=== PATIENT | female | born 2005 | race Caucasian/White ===

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

== ENCOUNTER 2024-05-17 16:32 | Emergency (ER) | payer OTHER, SELFPAY ==
--- NOTE | ~2024-05-17 | US_ITS ---
CLINICAL HISTORY: +preg test. bleeding spotting US OB 1st trimester transabdominal Comparison: None Findings: Neither intrauterine nor ectopic gestation is currently identified. There are no abnormal pelvic masses or significant fluid collections. IMPRESSION: No evidence of intrauterine or ectopic gestation. Follow-up imaging should be based on serial beta hCG levels. This document has been electronically signed by: Pepe King MD on 05/17/2024 19:36:39
[2024-05-17 16:52] VITALS: BP 151/79; PULSE 92; RESP 18; TEMP 37; O2SAT 100; BMI 24.1
--- NOTE | 2024-05-17 16:56 | ED.PREGNANCY ---
HPI - General Chief complaint: Vaginal Bleeding Stated complaint: ?Potential miscarriage Time Seen by Provider: 05/17/24 19:37 Source: patient Mode of arrival: ambulatory Limitations: no limitations History of Present Illness ED Provider: Maria Mo NP HPI Narrative: Patient is a 18-year-old female presents emergency department for evaluation. She reports her last menstrual period was 04/07/2024, she follows with [facility] OB. She was experiencing lower abdominal cramping and back pain with onset yesterday which brought her to urgent care. Reports that she had a serum HCG that resulted at 24. Yesterday she was having light vaginal spotting which then progressed to heavier bleeding. She reports that she is still currently bleeding describes it as menstrual type bleeding. She has cramping to the mid lower abdomen/suprapubic region as well as diffusely across the lower back. She expresses concern that she may have a sexually transmitted infection, she has had a new partner within the past couple of months. She states that even prior to this bleeding she was having foul smelling vaginal discharge, vaginal spotting/bleeding after intercourse and painful intercourse. She admits to having a history of chlamydia and gonorrhea infection in the past which presented similarly. She is also endorsing pain upon palpation of the external genitalia. She denies associated fevers, chills, nausea, vomiting. Related Data Home Medications ?Medication ?Instructions ?Recorded ?Confirmed vitamin 1 tab PO DAILY 11/05/21 11/05/21 no.76-iron,carbonyl 29 mg iron-folic acid 1 mg tablet (Thrivite Rx) Previous Rx's ?Medication ?Instructions ?Recorded pyridoxine (vitamin B6) 25 mg 25 mg PO TID PRN nausea #30 tabs 11/05/21 tablet cefuroxime axetil 250 mg tablet 250 mg PO BID #10 tabs 05/17/24 doxycycline hyclate 100 mg capsule 100 mg PO BID 14 days #27 caps 05/17/24 metronidazole 500 mg tablet 500 mg PO BID 14 days #27 tabs 05/17/24 ondansetron 4 mg disintegrating 4 mg PO Q8H PRN nausea and 05/17/24 tablet vomiting #10 tabs Allergies Allergy/AdvReac Type Severity Reaction Status Date / Time broccoli [BROCCOLI] Allergy Severe ANAPHYLAXIS Verified 05/17/24 16:56 penicillin V Allergy Mild Hives Verified 05/17/24 16:56 Penicillins [PENICILLINS] Allergy Mild RASH Verified 05/17/24 16:56 amoxicillin Allergy Unknown Unknown Verified 05/17/24 16:56 Review of Systems Review of Systems: Yes all other systems are reviewed and are negative [facility] Past Medical History Attestation statement: The following information was validated with the patient. Source: old records reviewed Medical History PTSD (post-traumatic stress disorder) Prolonged QT interval Depression ADHD Surgical History No pertinent past surgical history Social History Social History Alcohol intake: never Patient Tobacco Use Status: Current everyday Tobacco user Smoked in Last 30 Days: Yes Use of substances other than those prescribed or required for medical reasons: No Substance Use Type: Marijuana Advance Directives: No Advance Directives Information Provided: No Do you have a plan to hurt others: No Plan Physical Exam Vital Signs: Vital Signs: Last Vital Signs Temp 98 F 05/17/24 20:54 Pulse 80 05/17/24 20:54 Resp 18 05/17/24 20:54 BP 114/70 05/17/24 20:54 Pulse Ox 99 05/17/24 20:54 O2 Del Method Room Air 05/17/24 20:54 BMI result Body Mass Index 24.1 Appearance: Alert.?Oriented to person, place and time. No acute distress.?Normal affect. CVS: Heart sounds normal. Normal heart rate and rhythm.? Pulses normal.?? Respiratory: No respiratory distress.? Lung sounds clear to auscultation bilaterally?? Abdomen: Soft and non-tender. Normoactive bowel sounds. No pulsatile mass.? Genitourinary:? Supervised by ED fabrication technician. Normal external appearance of urethra.? No lesions/lacerations or discharge or tenderness noted. No Bartholin cyst noted.? Speculum exam: normal appearance/palpation of vagina normal. No abnormal vaginal discharge, swelling, erythema, laceratons. Positive active bleeding from the cervical os which otherwise appears normal. ?No foreign bodies noted.? Pain upon manipulation of the cervix with speculum as well as during swabs obtained.? No cervical lesion/mass.?? Positive cervical motion tenderness noted.? Negative chandelier sign.? Normal bimanual exam. Bladder normal to palpation. Normal adnexa. Normal rectovaginal exam.? Skin: Skin warm and dry.? Normal skin color.? Neuro: Moves all extremities spontaneously. Sensation intact bilaterally. Ambulates with normal steady gait. Course Course Course Narrative: This is a Rapid Medical Examination (RME) performed by Rylie Arreguin PA-C in triage. Full HPI, ROS, assessment and treatment plan per primary provider in the Main ED. 18 yo currently in the early state of ?LMP 04/07 presents to the ER for evaluation of vaginal bleeding, cramping, back pains that started yesterday. concern for STI with her new partner, has foul smelling vaginal discharge. bleeding started as spotting and now the whole toilet bowl is bloody. follows w/ OB at [place] who told her to come to the ER. Plan: labs, beta quant, sti testing Medications Administered Discontinued Medications Generic Name Dose Route Start Last Admin Trade Name Scooter PRN Reason Stop Dose Admin Ceftriaxone Sodium 500 mg/ 0 mg 05/17/24 20:27 05/17/24 20:48 Lidocaine HCl 1 ml IM 05/17/24 20:28 1 kit ONCE ONE Administration Doxycycline Monohydrate 100 mg 05/17/24 20:27 05/17/24 20:49 Doxycycline Monohydrate 100 Mg Capsule PO 05/17/24 20:28 100 mg ONCE ONE Administration Metronidazole 500 mg 05/17/24 20:27 05/17/24 20:49 Metronidazole 500 Mg Tablet PO 05/17/24 20:28 500 mg ONCE ONE Administration Ondansetron HCl 4 mg 05/17/24 20:27 05/17/24 20:48 Ondansetron Odt 4 Mg Tab.Rapdis TRANSLINGU 05/17/24 20:28 4 mg ONCE ONE Administration Medical Decision Making Medical Decision Making [facility] Narrative: Patient is a 18-year-old female presents emergency department for evaluation of lower abdominal and back pain in the setting of vaginal bleeding with concern for possible miscarriage as per HPI. On review she does have a downtrending hCG by her account serum level was 24 yesterday has resulted at 11 today. CBC is without leukocytosis anemia or thrombocytopenia. No significant electrolyte derangement. No OSIEL. LFTs are unremarkable. Urinalysis consistent with urinary tract infection, her presenting history and physical examination is concerning for PID. Ultrasound is without evidence of intrauterine or evidence of ectopic . At this time is most consistent with miscarriage. Discussed with my attending Dr. Lomeli who agree this is consistent with miscarriage, therefore will treat PID with ceftriaxone 500 mg IM, doxycycline and metronidazole twice daily for 14 days, cefuroxime for UTI. Bacterial vaginosis panel, Trichomonas, chlamydia and gonorrhea testing have been sent, results pending. Advised close outpatient follow-up with veterinary toxicologist and discussed worrisome signs and symptoms that would warrant re-evaluation in the emergency department. Differential Diagnosis Differential Diagnoses: The differential diagnosis associated with the presentation includes (See narrative above) Admission/Observation Consideration of admission/observation: Escalation of care including admission/observation considered Lab Data MDM Lab Attestation statement: I reviewed the patient's lab results. (See narrative above) 05/17/24 17:20 05/17/24 17:20 Labs: Lab Results 05/17/24 05/17/24 05/17/24 Range/Units 17:19 17:20 17:22 WBC 5.4 (4.8-10.8) X10*3/uL RBC 4.64 (4.20-5.50) X10*6/uL Hgb 14.5 (12.0-16.0) g/dl Hct 41.8 (37.0-47.0) % MCV 90.1 (80.0-98.0) fL MCH 31.3 (27.0-33.0) pg MCHC 34.7 (31.0-35.0) g/dl RDW 12.7 (11.0-16.0) % Plt Count 213 (160-400) X10*3/uL MPV 10.1 (9.4-12.3) fL Immature Gran % (Auto) 0.2 (0.0-0.4) % Neut % (Auto) 57.7 (45-73) % Lymph % (Auto) 32.5 (20-40) % [place] % (Auto) 8.1 (2-11) % Eos % (Auto) 0.9 (0-4) % Baso % (Auto) 0.6 (0-2) % Lymph # (Auto) 1.8 (1.2-4.9) X10*3/uL [place] # (Auto) 0.4 (0.1-1.2) X10*3/uL Eos # (Auto) 0.1 (0.0-0.4) X10*3/uL Baso # (Auto) 0.0 (0.0-0.2) X10*3/uL Abs Immat Gran (auto) 0.01 (0.00-0.03) X10*3/uL Absolute Neuts (auto) 3.1 (2.0-8.3) x10*3/uL Absolute Nucleated RBC 0.000 (0.0-0.012) X10*3/uL Nucleated RBC % (auto) 0.0 (0.0-0.2) /100WBC Sodium 140 (135-145) mmol/L Potassium 4.5 (3.3-5.1) mmol/L Chloride 110 H (96-108) mmol/L Carbon Dioxide 26 (22-29) mmol/L Anion Gap 9 L (12-20) BUN 6 L (9-16) mg/dL Creatinine 0.82 (0.5-1.4) mg/dL Estim Creat Clear Calc 89.5 Estimated GFR > 60 Random Glucose 119 H (60-115) mg/dL Calcium 8.9 (8.4-10.2) mg/dL Magnesium 1.8 (1.6-2.6) mg/dL Total Bilirubin 0.5 (0.0-1.0) mg/dL Direct Bilirubin 0.2 (0.0-0.5) mg/dL AST 21 (5-31) U/L ALT 13 (0-31) U/L Alkaline Phosphatase 75 (39-117) U/L Total Protein 7.0 (6.5-8.0) g/dL Albumin 4.3 (3.5-5.0) g/dL Beta HCG, Quant 11 mIU/mL Urine Color RED Urine Appearance Turbid Urine pH 6.5 (5.0-9.0) Ur Specific [place] 1.025 (1.005-1.025) Urine Protein 300 (3+) H (Neg-Trace) mg/dL Urine Glucose (UA) 100 H (Negative) mg/dL Urine Ketones 15 (Negative) mg/dL Urine Blood Large (3+) H (Negative) Urine Nitrite Positive H (Negative) Ur Leukocyte Esterase Moderate (2+) H (Negative) Urine RBC >20 H (0-2) /HPF Urine WBC >50 H (0-5) /HPF Ur Squamous Epith Cells >20 (0-2) /HPF Urine Bacteria 4+ (None Seen) Hyaline Casts 0-2 (0-2) /LPF Blood Type A Positive Radiology Impression Discussion of test interpretation with radiology: I have reviewed the radiologist's reading. Radiologist Impression: IMPRESSION: No evidence of intrauterine or ectopic gestation. Follow-up imaging should be based on serial beta hCG levels. External Record Review External record reviewed: Outpatient record Prescription Management I considered prescription management with: Antibiotic (See narrative above) Discharge Plan Discharge Clinical Impression: Spontaneous miscarriage, Acute pelvic inflammatory disease (PID), Urinary tract infection Patient Disposition: Home, Self-Care Instructions: Miscarriage (ED), Urinary Tract Infection in Women (ED) Additional Instructions: Your testing today shows that your blood hCG level for has downtrended to 11. The ultrasound does not show any evidence of active . This coupled with your bleeding is consistent with a miscarriage as discussed. Please follow-up with your OBGYN, they may consider repeating your hCG level at their discretion. As discussed, your examination today along with your presenting symptoms is concerning for pelvic inflammatory disease. For this you have been treated with ceftriaxone 500 mg IM in the emergency department, you have been discharge with prescriptions for doxycycline and metronidazole to take twice daily for 14 days. You received the 1st dose in the emergency department, you may begin taking these tomorrow. Additionally, your urine testing today is concerning for a urinary tract infection, cefuroxime has been sent to your pharmacy to take twice daily for 5 days, please begin this tomorrow. The combination of these medications may cause stomach upset. I have provided a prescription for Zofran to take every 8 hours as needed for nausea/vomiting. Please be sure to include a probiotic/yogurt daily to help keep your gut gina maintained. On doxycycline, do not take pills immediately before going to bed and swallow pills with plenty of water. Avoid direct sunlight, iron, antacids, and Pepto Bismol. Call your provider if you develop new ringing in your ears, new problems hearing, dizziness, difficulty swallowing, rash, abdominal discomfort, nausea, or diarrhea.? If there are any positive results from your testing today you will receive a call from the hospital. It is important that you refrain from any sexual intercourse while currently being treated with antibiotics as well as for 7 days afterwards. Have a conversation with your partner about having testing as well, especially if you received a call that there was any positive result. Prescriptions: New doxycycline hyclate 100 mg capsule 100 mg PO BID 14 Days Qty: 27 0RF metronidazole 500 mg tablet 500 mg PO BID 14 Days Qty: 27 0RF cefuroxime axetil 250 mg tablet 250 mg PO BID Qty: 10 0RF ondansetron 4 mg tablet,disintegrating 4 mg PO Q8H PRN (Reason: nausea and vomiting) Qty: 10 0RF No Action Thrivite Rx 29 mg iron- 1 mg tablet 1 tab PO DAILY pyridoxine (vitamin B6) 25 mg tablet 25 mg PO TID PRN (Reason: nausea) Qty: 30 0RF Referrals: Physician,None [Primary Care Provider] - Interventions: ED Discharge Assessment Last Done: 05/17/24 20:54 Discharge Date/Time: 05/17/24 20:54 Print Language: Samoan
[2024-05-17 17:28] LABS: MANUAL DIFF FLAG NO
[2024-05-17 17:31] LABS: Basophils Percent Auto 0.6 % (0-2); Eosinophils Absolute Auto 0.1 X10*3/uL (0.0-0.4); Eosinophils Percent Auto 0.9 % (0-4); Hematocrit 41.8 % (37.0-47.0); Hemoglobin 14.5 g/dl (12.0-16.0); Imm Gran Abs Auto 0.01 X10*3/uL (0.00-0.03); Imm Gran Pct Auto 0.2 % (0.0-0.4); Lymphocytes Absolute Auto 1.8 X10*3/uL (1.2-4.9); Lymphocytes Percent Auto 32.5 % (20-40); Mean Corpuscular HGB Conc 34.7 g/dl (31.0-35.0); Mean Corpuscular Hemoglobin 31.3 pg (27.0-33.0); Mean Corpuscular Volume 90.1 fL (80.0-98.0); Mean Platelet Volume 10.1 fL (9.4-12.3); Monocytes Absolute Auto 0.4 X10*3/uL (0.1-1.2); Monocytes Percent Auto 8.1 % (2-11); Neutrophils Absolute Auto 3.1 x10*3/uL (2.0-8.3); Neutrophils Percent Auto 57.7 % (45-73); Platelet Count 213 X10*3/uL (160-400); Red Blood Count 4.64 X10*6/uL (4.20-5.50); Red Cell Distribution Width 12.7 % (11.0-16.0); White Blood Count 5.4 X10*3/uL (4.8-10.8)
[2024-05-17 17:32] LABS: Appearance Urine Turbid; Color Urine RED; Glucose Urine UA 100 mg/dL (Negative); Leukocyte Esterase Urine Moderate (2+) (Negative); PH 6.5 (5.0-9.0); Specific Gravity - Urine 1.025 (1.005-1.025); UMIC TRIGGER UACC YES; Urine Blood Large (3+) (Negative); Urine Ketones 15 mg/dL (Negative); Urine Protein 300 (3+) mg/dL (Neg-Trace)
[2024-05-17 17:52] LABS: Alanine Aminotransferase 13 U/L (0-31); Albumin Level 4.3 g/dL (3.5-5.0); Alkaline Phosphatase 75 U/L (39-117); Anion Gap 9 (12-20); Aspartate Amino Transferase 21 U/L (5-31); Bilirubin Direct 0.2 mg/dL (0.0-0.5); Bilirubin Total 0.5 mg/dL (0.0-1.0); Blood Urea Nitrogen 6 mg/dL (9-16); Calcium 8.9 mg/dL (8.4-10.2); Carbon Dioxide 26 mmol/L (22-29); Chloride 110 mmol/L (96-108); Creatinine Clr Calc Pharmacy 89.5; Estimated Glomerular Filt Rate > 60; Glucose Random 119 mg/dL (60-115); Magnesium 1.8 mg/dL (1.6-2.6); Potassium 4.5 mmol/L (3.3-5.1); Sodium 140 mmol/L (135-145)
[2024-05-17 17:53] LABS: HCG Quantitative 11 mIU/mL
[2024-05-17 17:58] LABS: Nitrite Urine Positive (Negative)
[2024-05-17 18:00] VITALS: BP 114/70; PULSE 80; RESP 18; O2SAT 99
[2024-05-17 18:01] LABS: Bacteria Urine 4+ (None Seen); Hyaline Casts Urine 0-2 /LPF (0-2); RBC Urine >20 /HPF (0-2); Squamous Epithelial Cell Urine >20 /HPF (0-2); UACC Culture Trigger YES; WBC Urine >50 /HPF (0-5)
[2024-05-17] MEDS: Ondansetron ODT 4 MG TAB.RAPDIS TRANSLINGU (20:48)
[2024-05-17] MEDS: cefTRIAXone sodium 500 MG, Lidocaine HCl 1 % MPF 1 ML IM (20:48)
[2024-05-17] MEDS: metroNIDAZOLE 500 MG TABLET PO (20:49)
[2024-05-17] MEDS: Doxycycline Monohydrate 100 MG CAPSULE PO (20:49)
[2024-05-17 20:54] VITALS: BP 114/70; PULSE 80; RESP 18; TEMP 36.6; O2SAT 99
[2024-05-18 03:25] LABS: CT PCR NOT DETECTED (Not Detect.); NG PCR NOT DETECTED (Not Detect.)
[2024-05-18 13:11] LABS: Bacterial Vaginosis PCR POSITIVE (Negative); Candida Group PCR NOT DETECTED (Not Detect); Candida glab krusei PCR NOT DETECTED (Not Detect); Trichomonas vaginalis PCR DETECTED (Not Detect)
== END 2024-05-17 20:54 | disposition home or self-care (01) ==
PROVIDERS: Physician Assistant; Emergency Provider Emergency Medicine
DX: O03.9 Complete or unspecified spontaneous abortion without complication (principal); O23.599 Infection of other part of genital tract in pregnancy, unspecified trimester; O23.40 Unspecified infection of urinary tract in pregnancy, unspecified trimester; N39.0 Urinary tract infection, site not specified; O98.319 Other infections with a predominantly sexual mode of transmission complicating pregnancy, unspecified trimester; A59.01 Trichomonal vulvovaginitis; Z3A.00 Weeks of gestation of pregnancy not specified
CPT/HCPCS: 0352U; 36415; 76801; 80048; 80076; 81001; 83735; 84702; 85025; 86900; 86901; 87086; 87491; 87591; 96372; 99284; J0696; J2003

== ENCOUNTER → 2024-05-17 18:52 | Outpatient (BNV) | payer MEDICAID, SELFPAY | DX: N93.9 Abnormal uterine and vaginal bleeding, unspecified (principal) | CPT/HCPCS: 71275 ==

== ENCOUNTER 2024-06-16 23:56 | Emergency (ER) | payer OTHER, SELFPAY ==
--- NOTE | ~2024-06-16 | US_ITS ---
CLINICAL HISTORY: abd pain, vaginal bleeding US OB 1st Trimester transabdominal and transvaginal Comparison: US - US OB <= 14 WEEKS FETUS - 05/17/24 18:51 EST Findings: Transabdominal and transvaginal exam performed. Transvaginal exam performed to better evaluate the ovaries and endometrium. No intrauterine gestational sac identified. The endometrium measures 8 mm. The right ovary measures 2.9 x 1.8 x 1.9 cm. The left ovary measures 3.1 x 2.4 x 3.3 cm. No suspicious cystic lesions within the ovaries. IMPRESSION: No evidence of intrauterine or extrauterine at this time. Close follow-up recommended. This document has been electronically signed by: Tawnya Mercedes MD on 06/17/2024 04:32:07
[2024-06-17 00:02] VITALS: BP 110/61; PULSE 101; RESP 16; TEMP 37.2; O2SAT 100; BMI 24.6
[2024-06-17 00:46] LABS: MANUAL DIFF FLAG NO
[2024-06-17 00:52] LABS: Basophils Percent Auto 0.5 % (0-2); Eosinophils Absolute Auto 0.1 X10*3/uL (0.0-0.4); Eosinophils Percent Auto 0.9 % (0-4); Hematocrit 36.4 % (37.0-47.0); Imm Gran Abs Auto 0.01 X10*3/uL (0.00-0.03); Imm Gran Pct Auto 0.2 % (0.0-0.4); Lymphocytes Absolute Auto 2.8 X10*3/uL (1.2-4.9); Lymphocytes Percent Auto 41.6 % (20-40); Mean Corpuscular HGB Conc 35.7 g/dl (31.0-35.0); Mean Corpuscular Hemoglobin 31.2 pg (27.0-33.0); Mean Corpuscular Volume 87.3 fL (80.0-98.0); Mean Platelet Volume 10.5 fL (9.4-12.3); Monocytes Absolute Auto 0.5 X10*3/uL (0.1-1.2); Monocytes Percent Auto 7.8 % (2-11); Neutrophils Absolute Auto 3.3 x10*3/uL (2.0-8.3); Platelet Count 185 X10*3/uL (160-400); Red Blood Count 4.17 X10*6/uL (4.20-5.50); White Blood Count 6.7 X10*3/uL (4.8-10.8)
[2024-06-17 00:53] LABS: Appearance Urine Clear; Color Urine Yellow; Glucose Urine UA Negative (Negative); Leukocyte Esterase Urine Small (1+) (Negative); Nitrite Urine Negative (Negative); PH 7.5 (5.0-9.0); UMIC TRIGGER UACC YES; Urine Blood Negative (Negative); Urine Ketones Negative (Negative); Urine Protein Negative (Neg-Trace)
[2024-06-17 01:04] LABS: Bacteria Urine Trace (None Seen); Hyaline Casts Urine 0-2 /LPF (0-2); RBC Urine 0-2 /HPF (0-2); UACC Culture Trigger YES; WBC Urine 0-5 /HPF (0-5)
[2024-06-17 01:09] LABS: Alanine Aminotransferase 9 U/L (0-31); Albumin Level 4.1 g/dL (3.5-5.0); Anion Gap 12 (12-20); Aspartate Amino Transferase 20 U/L (5-31); Bilirubin Total 0.2 mg/dL (0.0-1.0); Blood Urea Nitrogen 9 mg/dL (9-16); Calcium 8.9 mg/dL (8.4-10.2); Carbon Dioxide 20 mmol/L (22-29); Chloride 112 mmol/L (96-108); Creatinine Clr Calc Pharmacy 114.7; Estimated Glomerular Filt Rate > 60; Glucose Random 89 mg/dL (60-115); HCG Quantitative 542 mIU/mL; Potassium 3.8 mmol/L (3.3-5.1); Sodium 140 mmol/L (135-145); Total Protein 6.8 g/dL (6.5-8.0)
[2024-06-17 01:18] LABS: Alkaline Phosphatase 64 U/L (39-117)
--- NOTE | 2024-06-17 03:16 | ED.FEMALEGU ---
HPI - Female Genitourinary General Chief complaint: Vaginal Bleeding Stated complaint: miscarriage? Time Seen by Provider: 06/17/24 02:17 Source: patient Mode of arrival: ambulatory Limitations: no limitations History of Present Illness ED Provider: Dr. Mariya Humphries HPI Narrative: Patient comes to the emergency room complaining of vaginal bleeding. Patient states that 2 days ago she tested positive for at home. Patient states that today she had some abdominal cramping and passed a large blood clot. Patient denies hematuria or dysuria. Patient states that a month ago she was diagnosed with a miscarriage. Follow-up ultrasound did not show any products of conception in the uterus and hCG eventually returned to normal. Patient is currently a . Related Data Home Medications ?Medication ?Instructions ?Recorded ?Confirmed vitamin 1 tab PO DAILY 11/05/21 11/05/21 no.76-iron,carbonyl 29 mg iron-folic acid 1 mg tablet (Thrivite Rx) Previous Rx's ?Medication ?Instructions ?Recorded pyridoxine (vitamin B6) 25 mg 25 mg PO TID PRN nausea #30 tabs 11/05/21 tablet cefuroxime axetil 250 mg tablet 250 mg PO BID #10 tabs 05/17/24 doxycycline hyclate 100 mg capsule 100 mg PO BID 14 days #27 caps 05/17/24 metronidazole 500 mg tablet 500 mg PO BID 14 days #27 tabs 05/17/24 ondansetron 4 mg disintegrating 4 mg PO Q8H PRN nausea and 05/17/24 tablet vomiting #10 tabs doxylamine 10 mg-pyridoxine (vit 1 tab PO BID #30 tabs 06/17/24 B6) 10 mg tablet,delayed release nitrofurantoin 100 mg PO Q12H 7 days #14 caps 06/17/24 monohydrate/macrocrystals 100 mg capsule (Macrobid) Allergies Allergy/AdvReac Type Severity Reaction Status Date / Time broccoli [BROCCOLI] Allergy Severe ANAPHYLAXIS Verified 06/17/24 00:04 penicillin V Allergy Mild Hives Verified 06/17/24 00:04 Penicillins [PENICILLINS] Allergy Mild RASH Verified 06/17/24 00:04 amoxicillin Allergy Unknown Unknown Verified 06/17/24 00:04 Review of Systems Review of Systems: Constitutional : No Weight loss, No Fever, No Chills, No Night Sweats, No Fatigue, No Malaise ENT/Mouth : No Hearing loss, No Ear Pain, No Nasal Congestion, No Sinus Pain, No Hoarseness, No sore throat, No Rhinorrhea, No Swallowing Difficulty Eyes: No Eye Pain, No Swelling, No Redness, No Foreign Body, No Discharge, No Vision Changes Cardiovascular : No Chest Pain, No SOB, No Dyspnea on Exertion, No Orthopnea, No Edema, No Palpitations Respiratory : No Cough, No Sputum, No Wheezing, No Smoke Exposure, No Dyspnea Gastrointestinal : No Nausea, No Vomiting, No Diarrhea, No Constipation, No abdominal Pain, No Hematochezia, No Melena Genitourinary : Complaining of 1 episode of vaginal bleeding, No Dysuria, No Urinary Frequency, No Hematuria, No Urinary Incontinence, No Urgency, No Flank Pain, No Urinary Flow Changes, No Hesitancy Musculoskeletal : No joint pain, No Myalgias, No Joint Swelling Skin : No Skin Lesions, No rash Neuro : No Weakness, No Numbness, No Paresthesias, No Loss of Consciousness, No Dizziness, No Headache Psych : No Anxiety/Panic, No Depression, No SI/HI/AH/VH, No Social Issues, Heme/Lymph: No Bruising, No Bleeding,No Lymphadenopathy Endocrine : No Polyuria, No Polydipsia, No Temperature Intolerance PMFSH Past Medical History Medical History PTSD (post-traumatic stress disorder) Prolonged QT interval Depression ADHD Surgical History No pertinent past surgical history Social History Social History Alcohol intake: never Patient Tobacco Use Status: Current everyday Tobacco user Substance Use Type: Marijuana Advance Directives: No Advance Directives Information Provided: No Do you have a plan to hurt others: No Plan Physical Exam Vital Signs: Vital Signs: Last Vital Signs Temp 99 F 06/17/24 00:02 Pulse 101 H 06/17/24 00:02 Resp 16 06/17/24 00:02 BP 110/61 06/17/24 00:02 Pulse Ox 100 06/17/24 00:02 O2 Del Method Room Air 06/17/24 00:02 BMI result Body Mass Index 24.6 Const: Other: Appearance: Alert. Oriented X3. No acute distress. Eyes: Pupils equal, round and reactive to light. ENT: Pharynx normal. Neck: Normal inspection. Neck supple. No lymph nodes noted. No crepitus CVS: Normal heart rate and rhythm. Pulses normal. Normal S1 and S2 Respiratory: No respiratory distress. Breath sounds normal. No Wheezing. No rales Abdomen: Soft and nontender. No rigidity. No distention. : Whitish discharge, cervix looks normal, there was no blood at all. Skin: Skin warm and dry. Normal skin color. Normal skin turgor. Extremities: No lower extremity edema. No Lacerations. No Rash Neuro: Oriented X 3. No motor deficit. No sensory deficit. Moving all extremities. No slurred speech. CN 2 through 12 grossly intact Psych: calm, cooperative, normal affect Medications Administered Discontinued Medications Generic Name Dose Route Start Last Admin Trade Name Freq PRN Reason Stop Dose Admin Nitrofurantoin Macrocrystals 100 mg 06/17/24 03:02 06/17/24 03:18 Nitrofurantoin Monohyd/M-Cryst 100 Mg Capsule PO 06/17/24 03:03 100 mg ONCE ONE Administration Medical Decision Making Medical Decision Making [facility] Narrative: Patient no longer having any abdominal pain. Normal hematology and chemistry. HCG is 542. Ultrasound does not show any evidence of . Patient does not have any abdominal pain, unlikely to be an ectopic . I discussed with the patient's signs and symptoms of an ectopic . If patient has any abdominal pain, she needs to return immediately to emergency room. No bleeding evidence on pelvic exam. Patient has an appointment pending with her OBGYN. Patient reports increasing nausea for the last week. Medications sent to her pharmacy. Patient has had multiple miscarriage in the past. I discussed with the patient that if these results in a miscarriage, she can talk to her OBGYN or PCP for a referral to a electrical controls assembler. Seems that patient's mother had the same issue with miscarriages Cultures for gonorrhea, chlamydia, Trichomonas and bacterial vaginosis have been collected, pending results for the next read our Patient states that she is already taking vitamins, patient requesting nausea meds Differential Diagnosis Differential Diagnoses: The differential diagnosis associated with the presentation includes Lab Data [facility] Lab Attestation statement: I reviewed the patient's lab results. 06/17/24 00:42 06/17/24 00:42 Labs: Lab Results 06/17/24 Range/Units 00:42 WBC 6.7 (4.8-10.8) X10*3/uL RBC 4.17 L (4.20-5.50) X10*6/uL Hgb 13.0 (12.0-16.0) g/dl Hct 36.4 L (37.0-47.0) % MCV 87.3 (80.0-98.0) fL MCH 31.2 (27.0-33.0) pg MCHC 35.7 H (31.0-35.0) g/dl RDW 12.0 (11.0-16.0) % Plt Count 185 (160-400) X10*3/uL MPV 10.5 (9.4-12.3) fL Immature Gran % (Auto) 0.2 (0.0-0.4) % Neut % (Auto) 49.0 (45-73) % Lymph % (Auto) 41.6 H (20-40) % [place] % (Auto) 7.8 (2-11) % Eos % (Auto) 0.9 (0-4) % Baso % (Auto) 0.5 (0-2) % Lymph # (Auto) 2.8 (1.2-4.9) X10*3/uL [place] # (Auto) 0.5 (0.1-1.2) X10*3/uL Eos # (Auto) 0.1 (0.0-0.4) X10*3/uL Baso # (Auto) 0.0 (0.0-0.2) X10*3/uL Abs Immat Gran (auto) 0.01 (0.00-0.03) X10*3/uL Absolute Neuts (auto) 3.3 (2.0-8.3) x10*3/uL Absolute Nucleated RBC 0.000 (0.0-0.012) X10*3/uL Nucleated RBC % (auto) 0.0 (0.0-0.2) /100WBC Sodium 140 (135-145) mmol/L Potassium 3.8 (3.3-5.1) mmol/L Chloride 112 H (96-108) mmol/L Carbon Dioxide 20 L (22-29) mmol/L Anion Gap 12 (12-20) BUN 9 (9-16) mg/dL Creatinine 0.64 (0.5-1.4) mg/dL Estim Creat Clear Calc 114.7 Estimated GFR > 60 Random Glucose 89 (60-115) mg/dL Calcium 8.9 (8.4-10.2) mg/dL Total Bilirubin 0.2 (0.0-1.0) mg/dL AST 20 (5-31) U/L ALT 9 (0-31) U/L Alkaline Phosphatase 64 (39-117) U/L Total Protein 6.8 (6.5-8.0) g/dL Albumin 4.1 (3.5-5.0) g/dL Beta HCG, Quant 542 mIU/mL Urine Color Yellow Urine Appearance Clear Urine pH 7.5 (5.0-9.0) Ur Specific [place] 1.010 (1.005-1.025) Urine Protein Negative (Neg-Trace) mg/dL Urine Glucose (UA) Negative (Negative) mg/dL Urine Ketones Negative (Negative) mg/dL Urine Blood Negative (Negative) Urine Nitrite Negative (Negative) Ur Leukocyte Esterase Small (1+) H (Negative) Urine RBC 0-2 (0-2) /HPF Urine WBC 0-5 (0-5) /HPF Ur Squamous Epith Cells 6-10 (0-2) /HPF Urine Bacteria Trace (None Seen) Hyaline Casts 0-2 (0-2) /LPF Independent Interpretation I performed an independent interpretation of an: Ultrasound Radiology Impression Discussion of test interpretation with radiology: I have reviewed the radiologist's reading. Radiologist Impression: Transabdominal and transvaginal exam performed. Transvaginal exam performed to better evaluate the ovaries and endometrium. No intrauterine gestational sac identified. The endometrium measures 8 mm. The right ovary measures 2.9 x 1.8 x 1.9 cm. The left ovary measures 3.1 x 2.4 x 3.3 cm. No suspicious cystic lesions within the ovaries. IMPRESSION: No evidence of intrauterine or extrauterine at this time. Close follow-up recommended. Discharge Plan Discharge Clinical Impression: Early stage of Patient Disposition: Home, Self-Care Instructions: (ED) Additional Instructions: Please follow-up with your primary care physician tomorrow. If you have any worsening or new symptoms, please return to the emergency room or call 911 Prescriptions: New nitrofurantoin monohyd/m-cryst [Macrobid] 100 mg capsule 100 mg PO Q12H 7 Days Qty: 14 0RF Rx Instructions: must administer with a meal/food doxylamine-pyridoxine (vit B6) 10-10 mg tablet,delayed release (DR/EC) 1 tab PO BID Qty: 30 0RF No Action Thrivite Rx 29 mg iron- 1 mg tablet 1 tab PO DAILY pyridoxine (vitamin B6) 25 mg tablet 25 mg PO TID PRN (Reason: nausea) Qty: 30 0RF doxycycline hyclate 100 mg capsule 100 mg PO BID 14 Days Qty: 27 0RF metronidazole 500 mg tablet 500 mg PO BID 14 Days Qty: 27 0RF cefuroxime axetil 250 mg tablet 250 mg PO BID Qty: 10 0RF ondansetron 4 mg tablet,disintegrating 4 mg PO Q8H PRN (Reason: nausea and vomiting) Qty: 10 0RF Print Language: [place]ian
[2024-06-17] MEDS: Nitrofurantoin Monohyd/M-Cryst 100 MG CAPSULE PO (03:18)
[2024-06-17 05:08] VITALS: BP 124/75; PULSE 91; RESP 18; TEMP 36.6; O2SAT 100
[2024-06-17 06:50] VITALS: BP 138/43; PULSE 57; RESP 18; TEMP 37.2; O2SAT 93
[2024-06-17 11:43] LABS: Bacterial Vaginosis PCR NEGATIVE (Negative); Candida Group PCR NOT DETECTED (Not Detect); Candida glab krusei PCR NOT DETECTED (Not Detect); Trichomonas vaginalis PCR DETECTED (Not Detect)
[2024-06-17 12:14] LABS: CT PCR NOT DETECTED (Not Detect.); NG PCR NOT DETECTED (Not Detect.)
== END 2024-06-17 05:11 | disposition home or self-care (01) ==
PROVIDERS: Emergency Provider Emergency Medicine
DX: O98.311 Other infections with a predominantly sexual mode of transmission complicating pregnancy, first trimester (principal); O99.331 Smoking (tobacco) complicating pregnancy, first trimester; R10.2 Pelvic and perineal pain; Z79.899 Other long term (current) drug therapy; Z3A.01 Less than 8 weeks gestation of pregnancy
CPT/HCPCS: 36415; 76801; 76817; 80053; 81001; 81515; 84702; 85025; 87086; 87491; 87591; 99284

== ENCOUNTER 2024-06-25 22:54 | Emergency (ER) | payer MEDICAID, SELFPAY ==
--- NOTE | ~2024-06-25 | US_ITS ---
CLINICAL HISTORY: r o ectopic US OB 1st Trimester transabdominal and transvaginal with Doppler Comparison: None Findings: Single intrauterine . CRL: 0.2 cm. EGA: 5 weeks 6 days. ANJELICA: 02/20/2025. Previously established gestational age: N/A . Normal yolk sac . Cardiac activity: 71 bpm. No subchorionic bleed. Right ovary 2.9 x 2.0 x 1.7 cm. Left ovary 3.2 x 1.7 x 2.3 cm. Incidental 2 cm hemorrhagic corpus luteum. Normal color Doppler with arterial/venous spectral tracing of both ovaries. IMPRESSION: 1. Single intrauterine estimated 5 weeks 6 days by crown-rump length. 2. bradycardia, heart rate 71 beats per minute. Recommend close clinical follow-up. 3. Unremarkable ovaries without torsion. 4. No ectopic demonstrated. This document has been electronically signed by: Nathanael Dee MD on 06/26/2024 02:10:21
[2024-06-25 22:59] VITALS: BP 100/44; PULSE 100; RESP 18; TEMP 37.1; O2SAT 100; BMI 24.4
[2024-06-25 23:28] LABS: MANUAL DIFF FLAG NO
[2024-06-25 23:29] LABS: Basophils Percent Auto 0.6 % (0-2); Eosinophils Absolute Auto 0.1 X10*3/uL (0.0-0.4); Eosinophils Percent Auto 1.6 % (0-4); Hematocrit 35.7 % (37.0-47.0); Hemoglobin 12.7 g/dl (12.0-16.0); Imm Gran Abs Auto 0.01 X10*3/uL (0.00-0.03); Imm Gran Pct Auto 0.2 % (0.0-0.4); Lymphocytes Absolute Auto 2.5 X10*3/uL (1.2-4.9); Lymphocytes Percent Auto 50.8 % (20-40); Mean Corpuscular HGB Conc 35.6 g/dl (31.0-35.0); Mean Corpuscular Hemoglobin 31.1 pg (27.0-33.0); Mean Corpuscular Volume 87.5 fL (80.0-98.0); Mean Platelet Volume 10.4 fL (9.4-12.3); Monocytes Absolute Auto 0.5 X10*3/uL (0.1-1.2); Monocytes Percent Auto 9.2 % (2-11); Neutrophils Absolute Auto 1.9 x10*3/uL (2.0-8.3); Neutrophils Percent Auto 37.6 % (45-73); Platelet Count 183 X10*3/uL (160-400); Red Blood Count 4.08 X10*6/uL (4.20-5.50); Red Cell Distribution Width 12.3 % (11.0-16.0)
--- NOTE | 2024-06-25 23:31 | PC.NURSE ---
verbal order from MD lee to order ob ultrasound
[2024-06-25 23:49] LABS: Alanine Aminotransferase 12 U/L (0-31); Albumin Level 3.9 g/dL (3.5-5.0); Alkaline Phosphatase 59 U/L (39-117); Anion Gap 7 (12-20); Aspartate Amino Transferase 18 U/L (5-31); Bilirubin Total 0.3 mg/dL (0.0-1.0); Blood Urea Nitrogen 4 mg/dL (9-16); Calcium 8.5 mg/dL (8.4-10.2); Carbon Dioxide 22 mmol/L (22-29); Chloride 112 mmol/L (96-108); Creatinine Clr Calc Pharmacy 109.1; Estimated Glomerular Filt Rate > 60; Glucose Random 92 mg/dL (60-115); Lipase 12 U/L (8-78); Potassium 3.5 mmol/L (3.3-5.1); Sodium 137 mmol/L (135-145); Total Protein 6.2 g/dL (6.5-8.0)
[2024-06-26 00:15] LABS: HCG Quantitative 17456 mIU/mL
--- NOTE | 2024-06-26 02:52 | ED.PREGNANCY ---
HPI - General Chief complaint: OB Stated complaint: vaginal bleeding ? Time Seen by Provider: 06/26/24 02:34 Source: patient Limitations: no limitations History of Present Illness ED Provider: Odalis Wei PA-C HPI Narrative: 19-year-old female with a history of prior miscarriages, family history of ectopic , presents with left lower abdominal pain since earlier today. Patient states she has irregular menstrual cycles, unsure of her last period. Patient had a positive home test on June 13, her formal ultrasound with her division officer [employer] is scheduled for July 04. She is followed by [facility], she had a beta HCG on June 19 that measured 1337. Denies vaginal bleeding or spotting. Denies nausea, vomiting, diarrhea, dysuria or fever. Related Data Home Medications ?Medication ?Instructions ?Recorded ?Confirmed vitamin 1 tab PO DAILY 11/05/21 11/05/21 no.76-iron,carbonyl 29 mg iron-folic acid 1 mg tablet (Thrivite Rx) Previous Rx's ?Medication ?Instructions ?Recorded pyridoxine (vitamin B6) 25 mg 25 mg PO TID PRN nausea #30 tabs 11/05/21 tablet cefuroxime axetil 250 mg tablet 250 mg PO BID #10 tabs 05/17/24 doxycycline hyclate 100 mg capsule 100 mg PO BID 14 days #27 caps 05/17/24 metronidazole 500 mg tablet 500 mg PO BID 14 days #27 tabs 05/17/24 ondansetron 4 mg disintegrating 4 mg PO Q8H PRN nausea and 05/17/24 tablet vomiting #10 tabs doxylamine 10 mg-pyridoxine (vit 1 tab PO BID #30 tabs 06/17/24 B6) 10 mg tablet,delayed release nitrofurantoin 100 mg PO Q12H 7 days #14 caps 06/17/24 monohydrate/macrocrystals 100 mg capsule (Macrobid) metronidazole 500 mg tablet 500 mg PO BID #14 tabs 06/19/24 Allergies Allergy/AdvReac Type Severity Reaction Status Date / Time broccoli [BROCCOLI] Allergy Severe ANAPHYLAXIS Verified 06/25/24 22:59 penicillin V Allergy Mild Hives Verified 06/25/24 22:59 Penicillins [PENICILLINS] Allergy Mild RASH Verified 06/25/24 22:59 amoxicillin Allergy Unknown Unknown Verified 06/25/24 22:59 Review of Systems Review of Systems: Yes all other systems are reviewed and are negative Constitutional: Constitutional: Denies fatigue and Denies fever(s) Cardiovascular: Cardiovascular: Denies chest pain and Denies dyspnea Respiratory: Respiratory: Denies cough and Denies dyspnea Gastrointestinal: Gastrointestinal: Reports abdominal pain, Denies diarrhea, Denies nausea and Denies vomiting Genitourinary: Genitourinary: Denies hematuria, Reports difficulty conceiving, Denies dysuria and Denies vaginal discharge Endocrine: Endocrine: Denies fatigue PMFSH Past Medical History Attestation statement: The following information was validated with the patient. Medical History PTSD (post-traumatic stress disorder) Prolonged QT interval Depression ADHD Surgical History No pertinent past surgical history Social History Social History Alcohol intake: never Patient Tobacco Use Status: Current everyday Tobacco user Substance Use Type: Marijuana Physical Exam Vital Signs: Vital Signs: Last Vital Signs Temp 98.7 F 06/25/24 22:59 Pulse 100 06/25/24 22:59 Resp 18 06/25/24 22:59 BP 100/44 L 06/25/24 22:59 Pulse Ox 100 06/25/24 22:59 O2 Del Method Room Air 06/25/24 22:59 BMI result Body Mass Index 24.4 Const: Other: Alert well-appearing Orientation/consciousness: patient oriented x3 Resp: Effort & Inspection: normal respiratory effort Cardio: Other: Normal peripheral perfusion GI: Other: Abdomen is soft, nontender nondistended no guarding, with deep palpation Skin: Other: Warm dry no rash Neuro: General: patient oriented x3, no focal motor deficits and CN's II-XI intact bilaterally Psych: Other: Calm Medical Decision Making Medical Decision Making MDM Narrative: 19-year-old female with a history of prior miscarriages, family history of ectopic , presents with left lower abdominal pain since earlier today. Patient states she has irregular menstrual cycles, unsure of her last period. 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 She is followed by [facility], she had a beta HCG on June 19 that measured 1337. Denies vaginal bleeding or spotting. Denies nausea, vomiting, diarrhea, dysuria or fever. Problem: Prior miscarriages and current History: Per patient I have considered the following differential diagnoses: Ectopic , diverticulitis, torsion, UTI, threatened Plan: Screening labs including a transvaginal ultrasound were ordered from triage, the heart rate is not appropriate, it is 71, it is concerning for threatened . The recommendation is for the patient to follow up closely with her division officer weapons department. I have considered other pathology, UTI versus diverticulitis, however she is asymptomatic and with deep palpation of her abdomen she has a very benign exam, CT scan not warranted. I have independently reviewed the following tests: Labs: No leukocytosis, not anemic, no electrolyte abnormality, beta hCG 06934 Transvaginal ultrasound:This document has been electronically signed by: Nathanael Dee MD on 06/26/2024 02:10:21 ADDENDUM: This report was discussed with Catrina Colmenares RN on Jun 26, 2024 02:13:00 EST. This document has been electronically signed by: Madeleine Dozier on 06/26/2024 02:16:38 Addendum Dictated By: Nathanael Dee MD Addendum Signed By: <Electronically signed by Nathanael Dee MD in OV> 06/26/24216 Addendum Cosigned By: DD/ TD/TT: 06/26/24 CLINICAL HISTORY: r o ectopic US OB 1st Trimester transabdominal and transvaginal with Doppler Comparison: None Findings: Single intrauterine . CRL: 0.2 cm. EGA: 5 weeks 6 days. ANJELICA: 02/20/2025. Previously established gestational age: N/A . Normal yolk sac . Cardiac activity: 71 bpm. No subchorionic bleed. Right ovary 2.9 x 2.0 x 1.7 cm. Left ovary 3.2 x 1.7 x 2.3 cm. Incidental 2 cm hemorrhagic corpus luteum. Normal color Doppler with arterial/venous spectral tracing of both ovaries. IMPRESSION: 1. Single intrauterine estimated 5 weeks 6 days by crown-rump length. 2. bradycardia, heart rate 71 beats per minute. Recommend close clinical follow-up. 3. Unremarkable ovaries without torsion. 4. No ectopic demonstrated. This document has been electronically signed by: Nathanael Dee MD on 06/26/2024 02:10:21 Lab Data 06/25/24 23:24 06/25/24 23:24 Labs: Lab Results 06/25/24 Range/Units 23:24 WBC 5.0 (4.8-10.8) X10*3/uL RBC 4.08 L (4.20-5.50) X10*6/uL Hgb 12.7 (12.0-16.0) g/dl Hct 35.7 L (37.0-47.0) % MCV 87.5 (80.0-98.0) fL MCH 31.1 (27.0-33.0) pg MCHC 35.6 H (31.0-35.0) g/dl RDW 12.3 (11.0-16.0) % Plt Count 183 (160-400) X10*3/uL MPV 10.4 (9.4-12.3) fL Immature Gran % (Auto) 0.2 (0.0-0.4) % Neut % (Auto) 37.6 L (45-73) % Lymph % (Auto) 50.8 H (20-40) % [place] % (Auto) 9.2 (2-11) % Eos % (Auto) 1.6 (0-4) % Baso % (Auto) 0.6 (0-2) % Lymph # (Auto) 2.5 (1.2-4.9) X10*3/uL [place] # (Auto) 0.5 (0.1-1.2) X10*3/uL Eos # (Auto) 0.1 (0.0-0.4) X10*3/uL Baso # (Auto) 0.0 (0.0-0.2) X10*3/uL Abs Immat Gran (auto) 0.01 (0.00-0.03) X10*3/uL Absolute Neuts (auto) 1.9 L (2.0-8.3) x10*3/uL Absolute Nucleated RBC 0.000 (0.0-0.012) X10*3/uL Nucleated RBC % (auto) 0.0 (0.0-0.2) /100WBC Sodium 137 (135-145) mmol/L Potassium 3.5 (3.3-5.1) mmol/L Chloride 112 H (96-108) mmol/L Carbon Dioxide 22 (22-29) mmol/L Anion Gap 7 L (12-20) BUN 4 L (9-16) mg/dL Creatinine 0.67 (0.5-1.4) mg/dL Estim Creat Clear Calc 109.1 Estimated GFR > 60 Random Glucose 92 (60-115) mg/dL Calcium 8.5 (8.4-10.2) mg/dL Total Bilirubin 0.3 (0.0-1.0) mg/dL AST 18 (5-31) U/L ALT 12 (0-31) U/L Alkaline Phosphatase 59 (39-117) U/L Total Protein 6.2 L (6.5-8.0) g/dL Albumin 3.9 (3.5-5.0) g/dL Lipase 12 (8-78) U/L Beta HCG, Quant 78874 mIU/mL Discharge Plan Discharge Clinical Impression: Currently in first trimester with unknown date of last menstrual period, Abdominal pain Patient Disposition: Home, Self-Care Instructions: First Trimester (ED), Abdominal Pain in (ED) Additional Instructions: The trans vaginal ultrasound read is listed below.........your serum hcg level today was 29355 IMPRESSION: 1. Single intrauterine estimated 5 weeks 6 days by crown-rump length. 2. bradycardia, heart rate 71 beats per minute. Recommend close clinical follow-up. 3. Unremarkable ovaries without torsion. 4. No ectopic demonstrated. You need to call your division officer weapons department tomorrow for a follow up appointment, they will likely reschedule your ultrasound, and will repeat your serum hcg level. Prescriptions: No Action Thrivite Rx 29 mg iron- 1 mg tablet 1 tab PO DAILY pyridoxine (vitamin B6) 25 mg tablet 25 mg PO TID PRN (Reason: nausea) Qty: 30 0RF doxycycline hyclate 100 mg capsule 100 mg PO BID 14 Days Qty: 27 0RF metronidazole 500 mg tablet 500 mg PO BID 14 Days Qty: 27 0RF cefuroxime axetil 250 mg tablet 250 mg PO BID Qty: 10 0RF ondansetron 4 mg tablet,disintegrating 4 mg PO Q8H PRN (Reason: nausea and vomiting) Qty: 10 0RF nitrofurantoin monohyd/m-cryst [Macrobid] 100 mg capsule 100 mg PO Q12H 7 Days Qty: 14 0RF Rx Instructions: must administer with a meal/food doxylamine-pyridoxine (vit B6) 10-10 mg tablet,delayed release (DR/EC) 1 tab PO BID Qty: 30 0RF metronidazole 500 mg tablet 500 mg PO BID Qty: 14 0RF Print Language: Syriac
[2024-06-26 03:25] VITALS: BP 103/56; PULSE 88; RESP 16; TEMP 36.4; O2SAT 98
== END 2024-06-26 03:26 | disposition home or self-care (01) ==
PROVIDERS: Emergency Provider Emergency Medicine
DX: O26.891 Other specified pregnancy related conditions, first trimester (principal); R10.32 Left lower quadrant pain; O99.331 Smoking (tobacco) complicating pregnancy, first trimester; O99.321 Drug use complicating pregnancy, first trimester; F12.90 Cannabis use, unspecified, uncomplicated; Z3A.01 Less than 8 weeks gestation of pregnancy
CPT/HCPCS: 36415; 76801; 76817; 80053; 83690; 84702; 85025; 99284

== ENCOUNTER 2024-06-29 15:45 | Emergency (ER) | payer MEDICAID, SELFPAY ==
--- NOTE | ~2024-06-29 | US_ITS ---
CLINICAL HISTORY: Lower abd cramping. +6wks preg US OB 1st trimester transabdominal and transvaginal Comparison: US - US OB PELVIC AND TRANSVAGINAL - 06/26/24 00:38 EST Findings: Transabdominal imaging was performed for overall anatomy. Transvaginal imaging performed for additional detail. Single intrauterine . The uterus measures 8.8 cm in length on transabdominal imaging. CRL: 4.4 mm EGA: 6 weeks 1 day. ANJELICA: 02/21/2025. Previously established gestational age: 6 weeks 2 days. Normal yolk sac . Cardiac activity: 106 bpm. No subchorionic bleed. The right ovary measures 2.3 x 1.4 x 1.6 cm and the left ovary measures 2.9 x 2.7 x 3.0 cm. 2.2 cm luteal cyst present at the left ovary flow present at the bilateral ovaries on color Doppler imaging. IMPRESSION: Single intrauterine estimated at 6 weeks 1 day gestational age by today's ultrasound criteria. This document has been electronically signed by: Konrad Gimenez MD on 06/29/2024 21:30:07
--- NOTE | 2024-06-29 15:50 | ED.GENADULT ---
HPI - General Adult General Chief complaint: Abdominal Pain Stated complaint: 6wks preg/cramping/dizziness/legs feel numb Time Seen by Provider: 06/29/24 19:02 Source: patient, RN notes reviewed and old records reviewed Mode of arrival: ambulatory History of Present Illness ED Provider: Janina Patel PA-C HPI narrative: 19-year-old female currently 6 weeks gestation with hx 2 prior miscarriages, presenting to the ED complaining of persistent LLQ abdominal cramping radiating to left low back x few weeks. Patient also reports syncopal episode today while in her room cleaning, states felt sudden onset lightheaded/dizzy and syncopized, unknown head trauma, +LOC. Does endorse exertional dyspnea since beginning of this . Denies chest pain. Patient was evaluated in our ED on 06/26/2024 for similar symptoms and had ultrasound showing bradycardia. Denies fever, chills, cough, CP/SOB at present, nausea, vomiting, vaginal bleeding/discharge, dysuria/hematuria, REAL Related Data Home Medications ?Medication ?Instructions ?Recorded ?Confirmed vitamin 1 tab PO DAILY 11/05/21 11/05/21 no.76-iron,carbonyl 29 mg iron-folic acid 1 mg tablet (Thrivite Rx) Previous Rx's ?Medication ?Instructions ?Recorded pyridoxine (vitamin B6) 25 mg 25 mg PO TID PRN nausea #30 tabs 11/05/21 tablet cefuroxime axetil 250 mg tablet 250 mg PO BID #10 tabs 05/17/24 doxycycline hyclate 100 mg capsule 100 mg PO BID 14 days #27 caps 05/17/24 metronidazole 500 mg tablet 500 mg PO BID 14 days #27 tabs 05/17/24 ondansetron 4 mg disintegrating 4 mg PO Q8H PRN nausea and 05/17/24 tablet vomiting #10 tabs doxylamine 10 mg-pyridoxine (vit 1 tab PO BID #30 tabs 06/17/24 B6) 10 mg tablet,delayed release nitrofurantoin 100 mg PO Q12H 7 days #14 caps 06/17/24 monohydrate/macrocrystals 100 mg capsule (Macrobid) metronidazole 500 mg tablet 500 mg PO BID #14 tabs 06/19/24 Allergies Allergy/AdvReac Type Severity Reaction Status Date / Time broccoli [BROCCOLI] Allergy Severe ANAPHYLAXIS Verified 06/29/24 15:52 penicillin V Allergy Mild Hives Verified 06/29/24 15:52 Penicillins [PENICILLINS] Allergy Mild RASH Verified 06/29/24 15:52 amoxicillin Allergy Unknown Unknown Verified 06/29/24 15:52 Review of Systems Review of Systems: Yes all other systems are reviewed and are negative Constitutional: Constitutional: Reports as per HPI Neurologic: Denies Abnormal speech present [facility] Past Medical History Attestation statement: The following information was validated with the patient. Source: old records reviewed Medical History PTSD (post-traumatic stress disorder) Prolonged QT interval Depression ADHD Surgical History No pertinent past surgical history Social History Social History Alcohol intake: never Patient Tobacco Use Status: Current everyday Tobacco user Smoked in Last 30 Days: Yes Use of substances other than those prescribed or required for medical reasons: No Substance Use Type: Marijuana Advance Directives: No Advance Directives Information Provided: No Patient : Yes Physical Exam ED Vital Signs: Vital Signs - 24 hr 06/29/24 15:51 06/29/24 18:12 06/29/24 19:54 Temperature 98.3 F 98.4 F 98.4 F Pulse Rate 92 88 88 Respiratory Rate 18 16 16 Blood Pressure 118/64 116/65 107/57 L Pulse Oximetry 98 100 97 Oxygen Delivery Method Room Air Room Air Room Air 06/29/24 21:01 06/29/24 21:01 06/29/24 21:01 Temperature Pulse Rate 77 78 95 Respiratory Rate Blood Pressure 94/58 L 112/68 96/72 Pulse Oximetry Oxygen Delivery Method BMI result Body Mass Index 24.6 Const General: cooperative, healthy appearing and no acute distress Orientation/consciousness: patient oriented x3 Limitations: no limitations HENMT Head: Yes normal to inspection and Yes atraumatic Ears: hearing grossly normal bilaterally General nose exam: Normal external nose present Face and sinus: Yes normal facial exam Eyes General: appearance normal, both eyes and all related structures EOM: EOMs intact bilaterally Neck Neck: Yes normal visual inspection and Yes no meningeal signs Resp Effort & Inspection: normal respiratory effort and no respiratory distress Auscultation: clear to auscultation bilaterally Cardio Rate: regular rate Heart sounds: S1 normal heart sound present and S2 normal heart sound present GI Inspection: Yes normal to inspection Palpation (GI): Soft to palpation, Tenderness to palpation present (GI) (left suprapubic region) with no rebound tenderness, no guarding and not rigid General: Yes no CVA tenderness Back/Spine/Pelvis Back: no CVA tenderness Skin Rashes: no rashes Wounds: no wounds Neuro General: patient oriented x3, gait normal, tone normal, moves all extremities, no meningeal signs, no focal motor deficits and CN's II-XI intact bilaterally Cranial nerves: Yes CN's II-XII intact bilaterally and Yes Bilaterally intact EOM present Cognition (Neuro): normal cognition Speech: No Abnormal speech present Gait exam (Neuro): Normal gait present Motor exam (neuro): 5/5 motor strength present throughout and no tremor noted Extrem General: Yes normal to inspection Course Course Course Narrative: This is a rapid medical exam. Deferred additional HPI, ROS, PE to primary provider. 19 yo female here with complaints of abdominal cramping, nausea, dizziness. Says she had syncopal episode earlier. Currently 6 weeks based on estimate. Unknown ANJELICA. LMP unknown. Has not seen OB yet. No vaginal bleeding. 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 dispo per results Reevaluation(s) Reevaluation #1: Sarah Wei PA-C have accepted care of the patient and signed out pending imaging and likely discharge. Transvaginal obstetric ultrasound:Findings: Transabdominal imaging was performed for overall anatomy. Transvaginal imaging performed for additional detail. Single intrauterine . The uterus measures 8.8 cm in length on transabdominal imaging. CRL: 4.4 mm EGA: 6 weeks 1 day. ANJELICA: 02/21/2025. Previously established gestational age: 6 weeks 2 days. Normal yolk sac . Cardiac activity: 106 bpm. No subchorionic bleed. The right ovary measures 2.3 x 1.4 x 1.6 cm and the left ovary measures 2.9 x 2.7 x 3.0 cm. 2.2 cm luteal cyst present at the left ovary flow present at the bilateral ovaries on color Doppler imaging. IMPRESSION: Single intrauterine estimated at 6 weeks 1 day gestational age by today's ultrasound criteria. This document has been electronically signed by: Konrad Gimenez MD on 06/29/2024 21:30:07 Medical Decision Making Medical Decision Making MDM Narrative: 19-year-old female currently 6 weeks gestation with hx 2 prior miscarriages, presenting to the ED complaining of persistent LLQ abdominal cramping radiating to left low back x few weeks. Patient also reports syncopal episode today while in her room cleaning, w/ exertional dyspnea since beginning of this . On exam VSS, NAD, nontoxic appearing, abdomen soft with L suprapubic ttp, No CVAT, no focal neuro deficits. Concern for abdominal pain in vs threatened vs ?torsion vs cyst. PE on ddx with syncope & exertional dyspnea. Lower concern for acute ACS, CVA/TIA or ICH. Unlikely appendicitis/diverticulitis. Rule out infectious etiology. Plan: EKG, Labs, UA, US, reassess Please refer to course for remaining clinical decision making, interpretation of labs/imaging results, and discussions with consultants and/or family members. Differential Diagnosis Differential Diagnoses: The differential diagnosis associated with the presentation includes As above Admission/Observation Consideration of admission/observation: Escalation of care including admission/observation considered Lab Data [facility] Lab Attestation statement: I reviewed the patient's lab results. 06/29/24 16:33 06/29/24 16:33 Labs: Lab Results 06/29/24 06/29/24 Range/Units 16:33 19:40 WBC 7.6 (4.8-10.8) X10*3/uL RBC 4.28 (4.20-5.50) X10*6/uL Hgb 13.3 (12.0-16.0) g/dl Hct 37.3 (37.0-47.0) % MCV 87.1 (80.0-98.0) fL MCH 31.1 (27.0-33.0) pg MCHC 35.7 H (31.0-35.0) g/dl RDW 12.3 (11.0-16.0) % Plt Count 211 (160-400) X10*3/uL MPV 10.3 (9.4-12.3) fL Immature Gran % (Auto) 0.1 (0.0-0.4) % Neut % (Auto) 56.7 (45-73) % Lymph % (Auto) 34.8 (20-40) % [place] % (Auto) 7.2 (2-11) % Eos % (Auto) 0.8 (0-4) % Baso % (Auto) 0.4 (0-2) % Lymph # (Auto) 2.7 (1.2-4.9) X10*3/uL [place] # (Auto) 0.6 (0.1-1.2) X10*3/uL Eos # (Auto) 0.1 (0.0-0.4) X10*3/uL Baso # (Auto) 0.0 (0.0-0.2) X10*3/uL Abs Immat Gran (auto) 0.01 (0.00-0.03) X10*3/uL Absolute Neuts (auto) 4.3 (2.0-8.3) x10*3/uL Absolute Nucleated RBC 0.000 (0.0-0.012) X10*3/uL Nucleated RBC % (auto) 0.0 (0.0-0.2) /100WBC D-Dimer High Sensitivty < 150 NG/ML Sodium 139 (135-145) mmol/L Potassium 4.0 (3.3-5.1) mmol/L Chloride 109 H (96-108) mmol/L Carbon Dioxide 24 (22-29) mmol/L Anion Gap 10 L (12-20) BUN 7 L (9-16) mg/dL Creatinine 0.69 (0.5-1.4) mg/dL Estim Creat Clear Calc 106.3 Estimated GFR > 60 Random Glucose 87 (60-115) mg/dL Calcium 9.0 (8.4-10.2) mg/dL Magnesium 1.9 (1.6-2.6) mg/dL Total Bilirubin 0.2 (0.0-1.0) mg/dL Direct Bilirubin < 0.2 (0.0-0.5) mg/dL AST 22 (5-31) U/L ALT 12 (0-31) U/L Alkaline Phosphatase 59 (39-117) U/L Troponin I High Sens < 2.7 (<3.5-17.0) ng/L Total Protein 6.5 (6.5-8.0) g/dL Albumin 3.9 (3.5-5.0) g/dL Lipase 14 (8-78) U/L Beta HCG, Quant 83901 mIU/mL Urine Color Yellow Urine Appearance Clear Urine pH 8.0 (5.0-9.0) Ur Specific Lillian <= 1.005 (1.005-1.025) Urine Protein Negative (Neg-Trace) mg/dL Urine Glucose (UA) Negative (Negative) mg/dL Urine Ketones Negative (Negative) mg/dL Urine Blood Negative (Negative) Urine Nitrite Negative (Negative) Ur Leukocyte Esterase Small (1+) H (Negative) Urine RBC 0-2 (0-2) /HPF Urine WBC 0-5 (0-5) /HPF Ur Squamous Epith Cells 0-2 (0-2) /HPF Urine Bacteria None Seen (None Seen) Hyaline Casts 0-2 (0-2) /LPF Urine Test POSITIVE H (NEGATIVE) Independent Interpretation I performed an independent interpretation of an: EKG (My interpretation EKG normal sinus rhythm with sinus arrhythmia rate of 86. LA interval 140. No significant change when compared to prior. No STEMI ) and Ultrasound Radiology Impression Discussion of test interpretation with radiology: I have reviewed the radiologist's reading. Independent Historian Clinical information obtained from an independent historian. History obtained from or confirmed by: Other External Record Review External record reviewed: Inpatient record, Office record, Outpatient record, Prior outpatient labs, Prior outpatient radiology, Primary care record and Outside ED record Tests considered The following testing was considered but not selected: As above Prescription Management I considered prescription management with: Other Chronic Conditions Patient?s care impacted by: Other Discharge Plan Discharge Clinical Impression: Abdominal pain during , Syncope Patient Disposition: Home, Self-Care Instructions: Abdominal Pain in (ED) Additional Instructions: The transvaginal ultrasound did not reveal any acute abnormality at this time. I am providing the ultrasound read for you in his discharge instruction. Your beta hCG quant today was 28313. You need to follow up with your photographer aerial. IMPRESSION: Single intrauterine estimated at 6 weeks 1 day gestational age by today's ultrasound criteria. All of your screening labs including a cardiac enzymes were normal. There were no concerning changes on your EKG. Prescriptions: No Action Thrivite Rx 29 mg iron- 1 mg tablet 1 tab PO DAILY pyridoxine (vitamin B6) 25 mg tablet 25 mg PO TID PRN (Reason: nausea) Qty: 30 0RF doxycycline hyclate 100 mg capsule 100 mg PO BID 14 Days Qty: 27 0RF metronidazole 500 mg tablet 500 mg PO BID 14 Days Qty: 27 0RF cefuroxime axetil 250 mg tablet 250 mg PO BID Qty: 10 0RF ondansetron 4 mg tablet,disintegrating 4 mg PO Q8H PRN (Reason: nausea and vomiting) Qty: 10 0RF nitrofurantoin monohyd/m-cryst [Macrobid] 100 mg capsule 100 mg PO Q12H 7 Days Qty: 14 0RF Rx Instructions: must administer with a meal/food doxylamine-pyridoxine (vit B6) 10-10 mg tablet,delayed release (DR/EC) 1 tab PO BID Qty: 30 0RF metronidazole 500 mg tablet 500 mg PO BID Qty: 14 0RF Print Language: Sao Tomean
[2024-06-29 15:51] VITALS: BP 118/64; PULSE 92; RESP 18; TEMP 36.8; O2SAT 98; BMI 24.6
--- NOTE | 2024-06-29 15:52 | ECG_ITS ---
Test Reason : syncope Blood Pressure : */* mmHG Vent. Rate : 86 BPM Atrial Rate : 86 BPM P-R Int : 140 ms QRS Dur : 82 ms QT Int : 374 ms P-R-T Axes : 63 73 35 degrees QTcB Int : 447 ms Normal sinus rhythm with sinus arrhythmia Cannot rule out Anterior infarct , age undetermined ; could be related to body habitus and lead placement Borderline ECG When compared with ECG of 05-Nov-2021 00:44, No significant change was found Referred By: Anne Griffin Electronically Signed By: ROLANDO HODGES
[2024-06-29 16:46] LABS: Basophils Percent Auto 0.4 % (0-2); Eosinophils Absolute Auto 0.1 X10*3/uL (0.0-0.4); Eosinophils Percent Auto 0.8 % (0-4); Hematocrit 37.3 % (37.0-47.0); Hemoglobin 13.3 g/dl (12.0-16.0); Imm Gran Abs Auto 0.01 X10*3/uL (0.00-0.03); Imm Gran Pct Auto 0.1 % (0.0-0.4); Lymphocytes Absolute Auto 2.7 X10*3/uL (1.2-4.9); Lymphocytes Percent Auto 34.8 % (20-40); MANUAL DIFF FLAG NO; Mean Corpuscular HGB Conc 35.7 g/dl (31.0-35.0); Mean Corpuscular Hemoglobin 31.1 pg (27.0-33.0); Mean Corpuscular Volume 87.1 fL (80.0-98.0); Mean Platelet Volume 10.3 fL (9.4-12.3); Monocytes Absolute Auto 0.6 X10*3/uL (0.1-1.2); Monocytes Percent Auto 7.2 % (2-11); Neutrophils Absolute Auto 4.3 x10*3/uL (2.0-8.3); Neutrophils Percent Auto 56.7 % (45-73); Platelet Count 211 X10*3/uL (160-400); Red Blood Count 4.28 X10*6/uL (4.20-5.50); Red Cell Distribution Width 12.3 % (11.0-16.0); White Blood Count 7.6 X10*3/uL (4.8-10.8)
[2024-06-29 16:47] LABS: Appearance Urine Clear; Color Urine Yellow; Glucose Urine UA Negative (Negative); Leukocyte Esterase Urine Small (1+) (Negative); Nitrite Urine Negative (Negative); Specific Gravity - Urine <= 1.005 (1.005-1.025); UMIC TRIGGER UACC YES; UPreg QC Valid YES; Urine Blood Negative (Negative); Urine Ketones Negative (Negative); Urine Pregnancy POSITIVE (NEGATIVE); Urine Protein Negative (Neg-Trace)
[2024-06-29 16:57] LABS: Bacteria Urine None Seen (None Seen); Hyaline Casts Urine 0-2 /LPF (0-2); RBC Urine 0-2 /HPF (0-2); Squamous Epithelial Cell Urine 0-2 /HPF (0-2); UACC Culture Trigger YES; WBC Urine 0-5 /HPF (0-5)
[2024-06-29 17:09] LABS: Alanine Aminotransferase 12 U/L (0-31); Albumin Level 3.9 g/dL (3.5-5.0); Alkaline Phosphatase 59 U/L (39-117); Anion Gap 10 (12-20); Aspartate Amino Transferase 22 U/L (5-31); Bilirubin Direct < 0.2 mg/dL (0.0-0.5); Bilirubin Total 0.2 mg/dL (0.0-1.0); Blood Urea Nitrogen 7 mg/dL (9-16); Carbon Dioxide 24 mmol/L (22-29); Chloride 109 mmol/L (96-108); Creatinine Clr Calc Pharmacy 106.3; Estimated Glomerular Filt Rate > 60; Glucose Random 87 mg/dL (60-115); Sodium 139 mmol/L (135-145); Total Protein 6.5 g/dL (6.5-8.0)
[2024-06-29 18:12] VITALS: BP 116/65; PULSE 88; RESP 16; TEMP 36.9; O2SAT 100
[2024-06-29 18:52] LABS: HCG Quantitative 37959 mIU/mL
--- NOTE | 2024-06-29 19:15 | PC.NURSE ---
patient c/o SOB when talking, states she had a syncopal episode around 1430 today. approx 6 weeks weeks . reports pelvic cramping, denies bleeding. pain to left arm and leg, feeling shakey x 2 days. NSR via tele.
[2024-06-29 19:46] LABS: Lipase 14 U/L (8-78); Magnesium 1.9 mg/dL (1.6-2.6)
[2024-06-29 19:54] VITALS: BP 107/57; PULSE 88; RESP 16; TEMP 36.9; O2SAT 97
[2024-06-29 19:54] LABS: D Dimer High Sensitivity < 150 NG/ML
[2024-06-29 20:06] LABS: Troponin-I High Sensitivity < 2.7 ng/L (<3.5-17.0)
[2024-06-29 21:01] VITALS: BP 112/68; BP 94/58; BP 96/72; PULSE 77; PULSE 78; PULSE 95
[2024-06-29 22:03] VITALS: BP 98/67; PULSE 85; RESP 16; TEMP 36.8; O2SAT 98
[2024-06-29 22:22] VITALS: BP 98/67; PULSE 85; RESP 16; TEMP 36.8; O2SAT 98
== END 2024-06-29 22:22 | disposition home or self-care (01) ==
PROVIDERS: Nurse Practitioner Family; Physician Assistant; Emergency Provider Emergency Medicine
DX: O26.91 Pregnancy related conditions, unspecified, first trimester (principal); R10.32 Left lower quadrant pain; R10.2 Pelvic and perineal pain; I49.8 Other specified cardiac arrhythmias; Z3A.01 Less than 8 weeks gestation of pregnancy; Z79.899 Other long term (current) drug therapy
CPT/HCPCS: 36415; 76801; 76817; 80048; 80076; 81001; 81025; 83690; 83735; 84484; 84702; 85025; 85379; 87086; 93005; 99284; 99285

== ENCOUNTER 2024-07-18 18:13 | Emergency (ER) | payer OTHER, SELFPAY ==
[2024-07-18 18:32] VITALS: BP 100/55; PULSE 93; RESP 18; TEMP 36.8; O2SAT 100; BMI 24.0
--- NOTE | 2024-07-18 18:33 | ED_ITS ---
HPI - General Adult General Chief complaint: Urogenital-Female Stated complaint: unable to urinate, 8wks Time Seen by Provider: 07/18/24 23:05 Source: patient Mode of arrival: ambulatory Limitations: no limitations History of Present Illness ED Provider: Dr. Mariya Humphries HPI narrative: Patient comes to emergency room complaining of dysuria. Patient states it started 2 days ago. Patient states that she is 8 weeks of gestational age. Patient denies any vaginal cramping, no fluid leakage, no spotting. Patient states that last month she was diagnosed with Trichomonas. Patient was treated and her symptoms resolved. However, patient states that she told her partner that he needed to be treated and he never got to it. Patient has no vaginal discharge as she did the last time. Patient denies hematuria, denies flank pain fever or chills. Related Data Home Medications ?Medication ?Instructions ?Recorded ?Confirmed vitamin 1 tab PO DAILY 11/05/21 11/05/21 no.76-iron,carbonyl 29 mg iron-folic acid 1 mg tablet (Thrivite Rx) Previous Rx's ?Medication ?Instructions ?Recorded pyridoxine (vitamin B6) 25 mg 25 mg PO TID PRN nausea #30 tabs 11/05/21 tablet cefuroxime axetil 250 mg tablet 250 mg PO BID #10 tabs 05/17/24 doxycycline hyclate 100 mg capsule 100 mg PO BID 14 days #27 caps 05/17/24 metronidazole 500 mg tablet 500 mg PO BID 14 days #27 tabs 05/17/24 ondansetron 4 mg disintegrating 4 mg PO Q8H PRN nausea and 05/17/24 tablet vomiting #10 tabs doxylamine 10 mg-pyridoxine (vit 1 tab PO BID #30 tabs 06/17/24 B6) 10 mg tablet,delayed release nitrofurantoin 100 mg PO Q12H 7 days #14 caps 06/17/24 monohydrate/macrocrystals 100 mg capsule (Macrobid) metronidazole 500 mg tablet 500 mg PO BID #14 tabs 06/19/24 doxylamine succinate 25 mg tablet 25 mg PO TID PRN Nausea vomiting 07/19/24 #30 tabs nitrofurantoin 100 mg PO Q12H 7 days #14 caps 07/19/24 monohydrate/macrocrystals 100 mg capsule (Macrobid) pyridoxine (vitamin B6) 25 mg 25 mg PO TID PRN nausea and 07/19/24 tablet vomiting #30 tabs Allergies Allergy/AdvReac Type Severity Reaction Status Date / Time broccoli [BROCCOLI] Allergy Severe ANAPHYLAXIS Verified 07/18/24 18:36 penicillin V Allergy Mild Hives Verified 07/18/24 18:36 Penicillins [PENICILLINS] Allergy Mild RASH Verified 07/18/24 18:36 amoxicillin Allergy Unknown Unknown Verified 07/18/24 18:36 Review of Systems 2 Review of Systems: Constitutional : No Weight loss, No Fever, No Chills, No Night Sweats, No Fatigue, No Malaise ENT/Mouth : No Hearing loss, No Ear Pain, No Nasal Congestion, No Sinus Pain, No Hoarseness, No sore throat, No Rhinorrhea, No Swallowing Difficulty Eyes: No Eye Pain, No Swelling, No Redness, No Foreign Body, No Discharge, No Vision Changes Cardiovascular : No Chest Pain, No SOB, No Dyspnea on Exertion, No Orthopnea, No Edema, No Palpitations Respiratory : No Cough, No Sputum, No Wheezing, No Smoke Exposure, No Dyspnea Gastrointestinal : No Nausea, No Vomiting, No Diarrhea, No Constipation, No abdominal Pain, No Hematochezia, No Melena Genitourinary : Complaining of dysuria, No Urinary Frequency, No Hematuria, No Urinary Incontinence, No Urgency, No Flank Pain, No Urinary Flow Changes, No Hesitancy Musculoskeletal : No joint pain, No Myalgias, No Joint Swelling Skin : No Skin Lesions, No rash Neuro : No Weakness, No Numbness, No Paresthesias, No Loss of Consciousness, No Dizziness, No Headache Psych : No Anxiety/Panic, No Depression, No SI/HI/AH/VH, No Social Issues, Heme/Lymph: No Bruising, No Bleeding,No Lymphadenopathy Endocrine : No Polyuria, No Polydipsia, No Temperature Intolerance PMFSH Past Medical History Medical History PTSD (post-traumatic stress disorder) Prolonged QT interval Depression ADHD Surgical History No pertinent past surgical history Social History Social History Alcohol intake: never Patient Tobacco Use Status: Current everyday Tobacco user Substance Use Type: Marijuana Advance Directives: No Advance Directives Information Provided: No Physical Exam ED Vital Signs: Vital Signs - 24 hr 07/18/24 18:32 07/18/24 23:39 07/19/24 00:58 Temperature 98.3 F 98.1 F 98.3 F Pulse Rate 93 78 72 Respiratory Rate 18 20 16 Blood Pressure 100/55 L 97/48 L 101/61 Pulse Oximetry 100 100 96 Oxygen Delivery Method Room Air Room Air Room Air BMI result Body Mass Index 24.0 Const Other: Appearance: Alert. Oriented X3. No acute distress. Eyes: Pupils equal, round and reactive to light. ENT: Pharynx normal. Neck: Normal inspection. Neck supple. No lymph nodes noted. No crepitus CVS: Normal heart rate and rhythm. Pulses normal. Normal S1 and S2 Respiratory: No respiratory distress. Breath sounds normal. No Wheezing. No rales Abdomen: Soft and nontender. No rigidity. No distention. Bedside ultrasound shows an intrauterine , heart rate in the 160s Skin: Skin warm and dry. Normal skin color. Normal skin turgor. Extremities: No lower extremity edema. No Lacerations. No Rash Neuro: Oriented X 3. No motor deficit. No sensory deficit. Moving all extremities. No slurred speech. CN 2 through 12 grossly intact Psych: calm, cooperative, normal affect Course Course Course Narrative: RME, this is a rapid medical exam performed by Pacheco Velazquez please refer to primary provider for complete H&P- 19 year old female presents for evaluation of lower abdominal pain and difficulty urinating. Symptoms started 2 days ago. She is approximately 8 weeks . She was recently treated for trichomoniasis. She was requesting repeat testing for this. Plan for labs, well-being cassette and bladder scan Medications Administered Discontinued Medications Generic Name Dose Route Start Last Admin Trade Name Freq PRN Reason Stop Dose Admin Nitrofurantoin Macrocrystals 100 mg 07/19/24 00:21 07/19/24 00:32 Nitrofurantoin Monohyd/M-Cryst 100 Mg Capsule PO 07/19/24 00:22 100 mg ONCE ONE Administration Medical Decision Making Medical Decision Making [facility] Narrative: My interpretation of labs: Normal hematology and chemistry, hCG 187,377. Urinalysis shows trace leukocyte esterase, +1 bacteria. Since patient is , we will go ahead and treat. Patient was given the 1st dose of Macrobid in the emergency room. Lab Data MDM Lab Attestation statement: I reviewed the patient's lab results. 07/18/24 20:23 07/18/24 20:23 Labs: Lab Results 07/18/24 Range/Units 20:23 WBC 9.2 (4.8-10.8) X10*3/uL RBC 4.22 (4.20-5.50) X10*6/uL Hgb 13.3 (12.0-16.0) g/dl Hct 38.0 (37.0-47.0) % MCV 90.0 (80.0-98.0) fL MCH 31.5 (27.0-33.0) pg MCHC 35.0 (31.0-35.0) g/dl RDW 12.0 (11.0-16.0) % Plt Count 182 (160-400) X10*3/uL MPV 10.2 (9.4-12.3) fL Immature Gran % (Auto) 0.2 (0.0-0.4) % Neut % (Auto) 61.0 (45-73) % Lymph % (Auto) 28.5 (20-40) % [place] % (Auto) 9.6 (2-11) % Eos % (Auto) 0.4 (0-4) % Baso % (Auto) 0.3 (0-2) % Lymph # (Auto) 2.6 (1.2-4.9) X10*3/uL [place] # (Auto) 0.9 (0.1-1.2) X10*3/uL Eos # (Auto) 0.0 (0.0-0.4) X10*3/uL Baso # (Auto) 0.0 (0.0-0.2) X10*3/uL Abs Immat Gran (auto) 0.02 (0.00-0.03) X10*3/uL Absolute Neuts (auto) 5.6 (2.0-8.3) x10*3/uL Absolute Nucleated RBC 0.000 (0.0-0.012) X10*3/uL Nucleated RBC % (auto) 0.0 (0.0-0.2) /100WBC Sodium 137 (135-145) mmol/L Potassium 3.8 (3.3-5.1) mmol/L Chloride 110 H (96-108) mmol/L Carbon Dioxide 19 L (22-29) mmol/L Anion Gap 12 (12-20) BUN 6 L (9-16) mg/dL Creatinine 0.58 (0.5-1.4) mg/dL Estim Creat Clear Calc 125.3 Estimated GFR > 60 Random Glucose 71 (60-115) mg/dL Calcium 8.5 (8.4-10.2) mg/dL Total Bilirubin 0.3 (0.0-1.0) mg/dL AST 20 (5-31) U/L ALT 11 (0-31) U/L Alkaline Phosphatase 56 (39-117) U/L Total Protein 6.9 (6.5-8.0) g/dL Albumin 4.0 (3.5-5.0) g/dL Lipase 15 (8-78) U/L Beta HCG, Quant [id number] mIU/mL Urine Color Yellow Urine Appearance Cloudy Urine pH 6.0 (5.0-9.0) Ur Specific [place] 1.025 (1.005-1.025) Urine Protein Negative (Neg-Trace) mg/dL Urine Glucose (UA) Negative (Negative) mg/dL Urine Ketones Trace (Negative) mg/dL Urine Blood Negative (Negative) Urine Nitrite Negative (Negative) Ur Leukocyte Esterase Trace H (Negative) Urine RBC 0-2 (0-2) /HPF Urine WBC 0-5 (0-5) /HPF Ur Squamous Epith Cells 11-20 (0-2) /HPF Calcium Oxalate Crystal Present Urine Bacteria 1+ (None Seen) Hyaline Casts 0-2 (0-2) /LPF Discharge Plan Discharge Clinical Impression: UTI in , STD exposure Patient Disposition: Home, Self-Care Instructions: (ED), Acute Nausea and Vomiting (ED) Additional Instructions: If your serology test for STDs is positive, you will receive a phone call and antibiotic will be sent to your pharmacy. Please follow-up with your primary care physician tomorrow. If you have any worsening or new symptoms, please return to the emergency room or call 911 Prescriptions: New pyridoxine (vitamin B6) 25 mg tablet 25 mg PO TID PRN (Reason: nausea and vomiting) Qty: 30 0RF Rx Instructions: Take together with doxylamine doxylamine succinate 25 mg tablet 25 mg PO TID PRN (Reason: Nausea vomiting) Qty: 30 0RF nitrofurantoin monohyd/m-cryst [Macrobid] 100 mg capsule 100 mg PO Q12H 7 Days Qty: 14 0RF Rx Instructions: must administer with a meal/food No Action Thrivite Rx 29 mg iron- 1 mg tablet 1 tab PO DAILY pyridoxine (vitamin B6) 25 mg tablet 25 mg PO TID PRN (Reason: nausea) Qty: 30 0RF doxycycline hyclate 100 mg capsule 100 mg PO BID 14 Days Qty: 27 0RF metronidazole 500 mg tablet 500 mg PO BID 14 Days Qty: 27 0RF cefuroxime axetil 250 mg tablet 250 mg PO BID Qty: 10 0RF ondansetron 4 mg tablet,disintegrating 4 mg PO Q8H PRN (Reason: nausea and vomiting) Qty: 10 0RF nitrofurantoin monohyd/m-cryst [Macrobid] 100 mg capsule 100 mg PO Q12H 7 Days Qty: 14 0RF Rx Instructions: must administer with a meal/food doxylamine-pyridoxine (vit B6) 10-10 mg tablet,delayed release (DR/EC) 1 tab PO BID Qty: 30 0RF metronidazole 500 mg tablet 500 mg PO BID Qty: 14 0RF Print Language: Portuguese
[2024-07-18 20:27] LABS: MANUAL DIFF FLAG NO
[2024-07-18 20:32] LABS: Appearance Urine Cloudy; Color Urine Yellow; Glucose Urine UA Negative (Negative); Leukocyte Esterase Urine Trace (Negative); Nitrite Urine Negative (Negative); Specific Gravity - Urine 1.025 (1.005-1.025); UMIC TRIGGER UACC YES; Urine Blood Negative (Negative); Urine Ketones Trace mg/dL (Negative); Urine Protein Negative (Neg-Trace)
[2024-07-18 20:38] LABS: Basophils Percent Auto 0.3 % (0-2); Eosinophils Percent Auto 0.4 % (0-4); Hemoglobin 13.3 g/dl (12.0-16.0); Imm Gran Abs Auto 0.02 X10*3/uL (0.00-0.03); Imm Gran Pct Auto 0.2 % (0.0-0.4); Lymphocytes Absolute Auto 2.6 X10*3/uL (1.2-4.9); Lymphocytes Percent Auto 28.5 % (20-40); Mean Corpuscular Hemoglobin 31.5 pg (27.0-33.0); Mean Platelet Volume 10.2 fL (9.4-12.3); Monocytes Absolute Auto 0.9 X10*3/uL (0.1-1.2); Monocytes Percent Auto 9.6 % (2-11); Neutrophils Absolute Auto 5.6 x10*3/uL (2.0-8.3); Platelet Count 182 X10*3/uL (160-400); Red Blood Count 4.22 X10*6/uL (4.20-5.50); White Blood Count 9.2 X10*3/uL (4.8-10.8)
[2024-07-18 20:39] LABS: Bacteria Urine 1+ (None Seen); Calcium Oxalate Crystals Urine Present; Hyaline Casts Urine 0-2 /LPF (0-2); RBC Urine 0-2 /HPF (0-2); WBC Urine 0-5 /HPF (0-5)
[2024-07-18 20:51] LABS: Alanine Aminotransferase 11 U/L (0-31); Alkaline Phosphatase 56 U/L (39-117); Anion Gap 12 (12-20); Aspartate Amino Transferase 20 U/L (5-31); Bilirubin Total 0.3 mg/dL (0.0-1.0); Blood Urea Nitrogen 6 mg/dL (9-16); Calcium 8.5 mg/dL (8.4-10.2); Carbon Dioxide 19 mmol/L (22-29); Chloride 110 mmol/L (96-108); Creatinine Clr Calc Pharmacy 125.3; Estimated Glomerular Filt Rate > 60; Glucose Random 71 mg/dL (60-115); Lipase 15 U/L (8-78); Potassium 3.8 mmol/L (3.3-5.1); Sodium 137 mmol/L (135-145); Total Protein 6.9 g/dL (6.5-8.0)
[2024-07-18 21:08] LABS: HCG Quantitative 187377 mIU/mL
--- OUTSIDE RECORDS SUMMARY | 2024-07-18 23:01 | XMS_ITS | Encounter Summary ---
Author Organization [facility] Address [address] [place] [address] Care Team Providers Care Blanket Winder Operator Name Role Phone Gabrielle Moore MD Primary Care Provider [phone] Encounter Details Date Type Department Care Team ([facility] st Contact Info) Description 06/27/2024 Telephone Obstetrics and Gynecology - [address] [id number] [place] [address] Radha Hoffman CN [address] [place] [address] Social History Tobacco Use Types Packs/Day Years Used Date Smoking Tobacco: Former Cigarettes Q uit: 01/29/2020 Smokeless Tobacco: Former Alcohol Use Standard Drinks/Week Comments Yes 0 (1 standard drink = 0.6 oz pur e alcohol) Comments Yes Sex and Gender Information Value Date Recorded Sex Assigned at Not on file Legal Sex Female 1:02 PM EST Gender Identity Not on file Sexual Orientation Not on file documented as of this encounter Progress Notes * Radha Hoffman CNM - 06/27/2024 5:32 AM EST TC received from pt through sugar plantation manager services. She is currently 6 weeks . She has hx of miscarriage x2. She was recently seen at [facility] for complaints of lower abdominal pain. Pt reports had a bedside US that demonstrated live IUP and FHT in the 70's. She had HCG levels drawn at [facility] 2 days ago that demonstrated - 40172, HCG level repeat at [facility] yesterday demonstrate [id number]. She is asking about difference in values. Made pt aware that the best way to evaluate HCG level is to get drawn 48hrs later at the same lab. Reviewed early preg loss warning sings and reasons to call back. Pt denies pain or vag bleeding at this time. Will order HCG levels for tomorrow. Pt agrees with plan and verbalized understanding. Radha Hoffman CNM documented in this encounter Plan of Treatment Upcoming Encounters Date Type Department Care Team (Late st Contact Info) Description 08/01/2024 10:00 AM EST Clinical Support Obstetrics and Gynecology - [address] [phone] 08/13/2024 11:00 AM EDT Initial Obstetrics and Gynecology - [address] [phone] Sandy Kiran MD [address] [place] [address] documented as of this encounter Results * HCG, quantitative (06/28/2024 2:39 PM EST) [facility] hCG Quant 25,803 mIU/mL LAB CHEMISTRY METHOD 06/28/2024 5:13 PM EST [facility] Comment:Results verified by repeat testing Blood Venous blood specimen / Unknown Venipuncture / Unknown 06/28/2024 2:39 PM EST 06/28/2024 2:39 PM EST Narrative [facility] - 06/28/2024 5:13 PM EST Quantitative HCG Reference Ranges Time after Conception ? MIU/ML 0.2-1 Week ? 5-50 1-2 ?? Weeks ? 50-500 2-3 ?? Weeks ?100-5,000 3-4 ?? Weeks ?500-10,000 4-5 ?? Weeks ?1,000-50,000 5-6 ?? Weeks ? 10,000-100,000 6-8 ?? Weeks ? 15,000-200,000 2-3 ?? Months ?10,000-100,000 2nd Trimester ?1,000-94,000 3rd Trimester ?2,500-90,000 Non- Females ?1-3 us Radha Hoffman CNM LAB BLOOD ORDERABLES Final Res ult [facility] [address] [place] [address], documented in this encounter Visit Diagnoses Diagnosis Inappropriate change in quantitative hCG in early - Primary documented in this encounter Care Teams Blanket Winder Operator Relationship Specialty Start Date End Date Gabrielle Moore MD [address] [place] [address] [place] [address] PCP - General Pediatrics 05/09/17 documented as of this encounter
--- OUTSIDE RECORDS SUMMARY | 2024-07-18 23:01 | XMS_ITS | Encounter Summary ---
Author Organization [facility] Address [address] [place] [phone] Phone Care Team Providers Care Sports Fitness And Wellness Director Name Role Phone Rosmery Moore MD Primary Care Provider [phone] Encounter Details Date Type Department Care Team (Late st Contact Info) Description 06/29/2016 Documentation [facility] [place] [address], [place] [phone] Family Medicine, Physician [address] [place] [address] Social History Tobacco Use Types Packs/Day Years Used Date Smoking Tobacco: Never Assessed Comments Unknown Sex and Gender Information Value Date Recorded Sex Assigned at Not on file Legal Sex Female 5:09 PM EDT Gender Identity Not on file Sexual Orientation Not on file documented as of this encounter Plan of Treatment Not on file documented as of this encounter Visit Diagnoses Not on filedocumented in this encounter Care Teams Sports Fitness And Wellness Director Relationship Specialty Start Date End Date Rosmery Moore MD [address] [place] [address] [place] [address] PCP - General 01/07/17 07/28/22 documented as of this encounter
--- OUTSIDE RECORDS SUMMARY | 2024-07-18 23:01 | XMS_ITS | Encounter Summary ---
Author Organization [facility] Address [address] [place] [phone] Phone Care Team Providers Care Fbi Investigator Name Role Phone Rosmery Moore MD Primary Care Provider [phone] Encounter Details Date Type Department Care Team (Late st Contact Info) Description 04/05/2013 Documentation [facility] [place] [address] [place], [place] [phone] Family Medicine, Physician [address] [place] [address] Social History Tobacco Use Types Packs/Day Years [...] on filedocumented in this encounter Care Teams Fbi Investigator Relationship Specialty Start Date End Date Rosmery Moore MD [address] [place] [address] [place] [address] PCP - General 01/07/17 07/28/22 documented as of this encounter
--- OUTSIDE RECORDS SUMMARY | 2024-07-18 23:01 | XMS_ITS | Encounter Summary ---
Author Organization [facility] Address [address] [place] [phone] Phone Care Team Providers Care Planned Giving Officer Name Role Phone Rosmery Moore MD Primary Care Provider [phone] Encounter Details Date Type Department Care Team (Late st Contact Info) Description 05/09/2013 Documentation [facility] [place] Family Medicine [address] [place], [place] [phone] Family Medicine, Physician [address] [place] [address] Social History Tobacco Use Types Packs/Day Years [...] on filedocumented in this encounter Care Teams Planned Giving Officer Relationship Specialty Start Date End Date Rosmery Moore MD [address] [place] [address] [place] [address] PCP - General 01/07/17 07/28/22 documented as of this encounter
--- OUTSIDE RECORDS SUMMARY | 2024-07-18 23:01 | XMS_ITS | Clinical Summary ---
Author Organization [facility] Address [address] [place] [phone] Phone Care Team Providers Care Senior Director Finance Name Role Phone Unavailable Primary Care Provider Unavailabl e Allergies Active Allergy Reactions Criticality Noted Date Comments Cephalexin Rash Low Food 08/19/2017 Raw broccoli Penicillins 08/19/2017 Medications FLUoxetine 20 MG capsule 2 07/25/19 18 Active GuanFACINE HCl ER 3 MG tablet sustained-release 24 hour 11 07/25/19 18 Active OXcarbazepine 150 MG tablet Take 150 mg by mouth 2 (two) times a day. 1 11/08/19 18 Active ibuprofen 200 MG tabletIndications: Pain Take 2 tablets (400 mg total) by mouth every 6 (six) hours as needed for mild pain. 30 tablet 2 12/08/19 18 Active VYVANSE 50 MG capsule Take 50 mg by mouth. TK ONCE C PO QD 0 01/24/20 19 Active hydrocortisone 0.2 % cream 0 11/16/19 19 Active OXcarbazepine 300 MG tablet Take 300 mg by mouth 2 (two) times a day. 1 01/27/20 19 Active desmopressin 0.2 MG tablet Take 0.2 mg by mouth nightly. 1 02/16/20 19 Active Melatonin 5 MG tablet TK 2 TS PO NIGHTLY 0 03/29/20 19 Active albuterol HFA 108 (90 Base) MCG/ACT inhalerIndications :Acute URI,Mild intermittent asthma with acute exacerbation Inhale 2 puffs every 4 (four) hours as needed for wheezing or shortness of breath (Chest tightness or tight,dry cough). 1 Units 2 04/09/20 19 Active Nebulizers (NEBULIZER COMPRESSOR) miscIndications:Mi ld intermittent asthma with acute exacerbation 1 Neb machine and pediatric tubing / mask please for Intrinsic Asthma 1 each 04/09/20 19 Active albuterol (2.5 MG/3ML) 0.083% nebulizer solutionIndication s:Mild intermittent asthma with acute exacerbation Take 3 mL (2.5 mg total) by nebulization every 4 (four) hours as needed for wheezing or shortness of breath (chest tightness or dry cough). 1 Package 3 04/09/20 19 Active mirtazapine 15 MG tablet TK 1 T PO HS 1 05/13/20 19 Active mirtazapine 30 MG tablet TK 1 T PO QHS 2 05/13/20 19 Active hydrOXYzine 25 MG capsule TAKE 1-2 CAPSULES PO FOR SLEEP 2 06/25/19 20 Active Tivicay 50 MG tablet 0 09/24/19 20 Active Truvada 200-300 MG per tablet 0 09/24/19 20 Active EPINEPHrine 0.3 MG/0.3ML injection syringe 0 09/25/19 20 Active medroxyPROGESTERon e Acetate 150 MG/ML suspension prefilled syringe 2 10/01/19 20 Active naproxen 375 MG tablet 1 10/08/19 20 Active ondansetron ODT 4 MG disintegrating tablet 0 09/24/19 20 Active Polyethylene Glycol 3350 (PEG 3350) powder 2 09/25/19 20 Active prazosin 2 MG capsule 2 10/17/19 20 Active Magnesium Citrate 1.745 GM/30ML solutionIndication s:Constipation, unspecified constipation type Take 150 ml by mouth 1 to 2 times a day as needed for acute constipation 300 mL 3 11/01/19 20 Active Emollient (Aquaphor Advanced Therapy) ointmentIndication s:Deliberate self-cutting Use topically to all abrasions 2 or 3 times a day for 2 weeks 396 g 1 11/15/19 20 Active fluticasone HFA (Flovent HFA) 44 MCG/ACT inhalerIndications :Mild persistent asthma without complication Inhale 2 puffs 2 (two) times a day. Rinse mouth with water after use, do not swallow. 1 Units 3 12/25/19 20 Active Active Problems Problem Noted Date Diagnosed Date Psychosocial stressors 09/28/2019 Overview (09/28/2019): Humberto Enrike is calling from [facility] regarding an active 51A. Update given. 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 04/09/19 visit for acute chest pain with severe bronchospasm and poor air movement with + albuterol response, RX Prednisone x 5d + albuterol 04/11/19:Chest pain resolved, still with diminish breath sounds but overall much improved - plan finish full 5 days Prednisone and q 4 hr albuterol, then slow wean off. Baseline CXR WNL. RTC in 1 week for spirometry eval and to determine plan for winter - likely Flovent/ICS Assessment & Plan (05/29/2019 12:57 PM EST): Still on flovent 2 p bid and doing very well; continue same and recheck in 3 months However unsure if this will be needed [facility] So recommended decrease to 2 puffs once a day for the month of May If cough returns, then go back up to 2 puffs bid If no cough, then at end of May, can discontinue altogether And follow up in july as planned Assessment & Plan (04/17/2019 3:11 PM EST): CXR was negative; lungs are clear today; looks good but still with cough/although less overall; advised will start flovent 44 2p bid now; recheck 1 month; sooner if any worse Assessment & Plan (04/11/2019 5:46 PM EST): Chest pain resolved, still with diminish breath sounds but overall much improved - plan finish full 5 days Prednisone and q 4 hr albuterol, then slow wean off. Obtain baseline CXR. RTC in 1 week for spirometry eval and to determine plan for winter - likely Flovent/ICS Suicidal ideation 02/08/2019 Assessment & Plan (02/21/2019 1:27 PM EDT): Able to contract for safety and has supports; disc'd w/her and GM about this; to discuss with therapist and f/u as planned with me Nocturnal enuresis 08/26/2017 Assessment & Plan (02/21/2019 1:28 PM EDT): Follow up with fredrick as planned Assessment & Plan (10/07/2017 2:33 PM EDT): Has appointment with fredrick in mid-October; is on desmopressin but need to find out why she still needs them Assessment & Plan (09/20/2017 1:47 PM EDT): Looked into referral that was made; nursing spoke with referrals and gave info to Ana about making appointment Assessment & Plan (08/26/2017 4:35 PM EDT): Was given desmopressin by last lock up apparently; this is not appropriate just to treat with this--she needs to see urology to see why she's still wetting the bed at night; order sent to referrals Irregular menstrual bleeding 08/26/2017 Assessment & Plan (08/26/2017 4:36 PM EDT): Had nexplanon placed in April and having bleeding Advised her this is not unusual--to give it some time; it should start to decrease; if continues, can refer to adol resource engineer Drug-induced constipation 08/26/2017 Assessment & Plan (02/21/2019 1:28 PM EDT): Will try colace to see if will help better Assessment & Plan (08/26/2017 4:31 PM EDT): Continues on vitamin with iron and colace seems to help her constipation History of prolonged Q-T interval on ECG 017 Depressive disorder 10/06/2015 Assessment & Plan (03/15/2019 2:39 PM EDT): Now has med provider and therapist; so will go to them for medications now Assessment & Plan (02/08/2019 2:45 PM EDT): Has therapist through [facility] and has appt with med provider on 03/09 at [facility] Needs a bridge of medication for the 4 days where she will run out Advised to call her old psychiatric provider for that bridge Assessment & Plan (11/15/2017 10:52 AM EDT): Reports that her therapist and psychiatrist are aware of recent self-harm and made changes to her medications; feels she's doing better; reviewed suggestions Assessment & Plan (08/26/2017 4:31 PM EDT): Reports recent harmful thoughts but able to contract for safety today; followed closely by Buddy for therapy and psychiatric medications Attention deficit hyperactivity disorder 011 Assessment & Plan (10/07/2017 2:34 PM EDT): On Vyvanse and multiple other psychiatric meds Has appointment with Soco Villeda at [facility] first week of October Will call when they need refills of her meds before that appointment Assessment & Plan (09/20/2017 1:46 PM EDT): [place] program worker Ana had old Rx from previous psychiatrist dated 08/16 for Vyvanse; they didn't fill it because they still had doses left; now about to run out and needs new rx; has therapist at [facility] but no psychiatrist yet I placed a call And spoke with Shanta Recinos her therapist; she will send note to get an expedited appt; also suggested call to [facility] Holliday/director; Ispoke with him and Darren has an appt in first week of October with Soco/psychiatric prescriber Follow up with me in 2 weeks to keep up with different meds that she needs refilled until seeing psychiatry Strabismus 10/16/2009 Assessment & Plan (02/21/2019 1:27 PM EDT): Followed by eye doc; has glasses Assessment & Plan (08/26/2017 4:30 PM EDT): Advised program to make appt with eye doctor Resolved Problems Problem Noted Date Diagnosed Date Resolved Date Counseling and coordination of care 05/07/2021 06/26/2021 Immunizations Immunization Administration Dates Next Due DTaP 5 08/22/2007, 5,01/20/2004,11/19,2003 H1N1 05/02/2009 HPV Vaccine 9 Valent 10/23/2015,06/19/2015,03/20 Hep A, ped/adol 06/06/2014,10/21/2010 Hep B, ped/adol 03/02/2004,2003,2003 Hib (HbOC) 2003 Hib (PRP-T) 09/15/2004,01/20/2004,2003 IPV 08/22/2007, 4,2003,08/28 Influenza Split 01/20/2012,02/25/2011,03/25/2010 Influenza, injectable, quadrivalent 03/04/2016 Influenza, injectable, quadr ivalent, preservative free 02/08/2019,08/26/2017 Influenza, injectable, trivalent 009,03/28/2007,06/27/2006,04/03 Influenza, intranasal, quadrivalent 03/20/2015,1 ,03/08/2013 MMR 06/16/2004 MMRV 08/22/2007 Meningococcal Conj (Menactra) MCV4P 03/20/2015 Pneumococcal Conjugate 09/15/2004,2003,2003,08/28 Tdap 03/20/2015 Varicella 06/16/2004 Family History Medical History Relation Name Comments Hyperlipidemia Paternal Grandmother Betzy Stroke Paternal Grandmother Betzy Asthma Sister 1 Edith Strabismus Sister 1 Edith Relation Name Status Comments Mother Mother: Drug ab use Other No family histo ry of Sudden /NC under age 55, No family history of Elevated cholesterol, No family history of Diabetes mellitus, No family history of Strabismus/amblyopia, No family history of Autism, No family history of Developmental dislocation of hip, No family history of Obesity, No family history of Migraines, No family history of Deafness, No family history of Seizure disorder, No family history of ADD/ADHD, No family history of Asthma Paternal Grandmother Betzy Wang l grandmother: Hyperlipidemia Sister 1 Edith Sister: Strabis mus, Asthma Sister 2 Sister: Strabis mus, Asthma Social History Tobacco Use Types Packs/Day Years Used Date Smoking Tobacco: Every Day Smokeless Tobacco: Current Alcohol Use Standard Drinks/Week Comments Yes 0 (1 standard drink = 0.6 oz pur e alcohol) Hunger/Food Answer Date Recorded In the last 12 months, did y ou or your family ever eat less than you felt you should because there wasn't enough money for food? No 02/08/2019 Stable Housing Answer Date Recorded Are you worried that in the next 2 months you may not have stable housing? No 02/08/2019 Transportation Concerns Answer Date Rec orded In the last 12 months, have you or your family ever had to go without healthcare because you didn't have a way to get there? No 02/08/2019 Hazards in Home Answer Date Recorded Think about the place you li ve. Do you have problems with any of the following? Pests (mice or roaches), mold, no/not working smoke detectors, water leaks, no window guards. No 2018 Financing Utilities Answer Date Recorde d In the last 12 months, has t he electric, gas, oil, or water company threatened to shut off your services in your home? No 02/08/2019 Safety at Home Answer Date Recorded Are you or your family worried about feeling saf e in your home? No 02/08/2019 Outside Support Answer Date Recorded Do you feel that you need mo re support from other people or programs to help you care for yourself or your family? No 02/08/2019 Understanding Health Concerns Answer Da te Recorded Do you need help understandi ng your or your child's healthcare needs (diagnosis, medications, plan, etc.)? No 02/08/2019 Financing Health Concerns Answer Date R ecorded In the last 12 months, was t here a time when your child needed to see a doctor or get medications or supplies but could not because of cost? No 02/08/2019 Missing School or Work Answer Date Eric rded Did you or your child miss s chool or work because of a health problem that could have been avoided? No 02/08/2019 Comments No Sex and Gender Information Value Date Recorded Sex Assigned at Not on file Legal Sex Female 5:09 PM EDT Gender Identity Not on file Sexual Orientation Not on file Last Filed Vital Signs Vital Sign Reading Time Taken Comments Blood Pressure 106/74 11/15/2019 3:27 PM EDT Pulse 96 11/15/2019 3:27 PM EDT Temperature 37.3 ??C (99.1 ??F) 11/15/2019 3:27 PM ED T Respiratory Rate 16 04/11/2019 3:57 PM EST Oxygen Saturation 100% 04/11/2019 3:57 PM EST Inhaled Oxygen Concentration - - Weight 59.1 kg (130 lb 3.2 oz) 11/15/2019 3:27 P M EDT Height 156.2 cm (5' 1.5 ) 11/09/2019 11:41 AM ED T Body Mass Index 24.2 11/09/2019 11:41 AM EDT Plan of Treatment Health Maintenance Due Date Last Done Comments Men B Vaccine (1 of 2 - Standard) 2019 Influenza Vaccines (#1) 2023 03/25/20 20, 02/08/2019, 08/26/2017, Additional history exists COVID-19 Vaccine (3 - 2023-2 5 season) 2024 08/18/2020, 07/28/2020 DTaP,Tdap,and Td Vaccines (7 - Td or Tdap) 03/20/2025 03/20/2015, 08/22/2007, 01/08/2005, Additional history exists Hepatitis B Vaccines Completed 03/02/2004, 2003, 2003 HIB Vaccines Completed 09/15/2004, 12/29, 2003, Additional history exists Pneumococcal Vaccine Completed 09/15/2004, 01/20/2004, 2003, Additional history exists IPV Vaccines Completed 08/22/2007, 08/2003, 2003, Additional history exists MMR Vaccines Completed 08/22/2007, 07/29, 06/16/2004 Varicella Vaccines Completed 08/22/2007, 0 08/22/2007, 06/16/2004 Hepatitis A Vaccines Completed 06/06/2014, 10/22/19 11 HPV Vaccines Completed 10/23/2015, 05/31, 03/20/2015 Meningococcal Vaccine Completed 04/23/2020, 015 Procedures * Due to [place] law, this organization might not be sharing sensitive test results. Procedure Name Priority Date/Time Associated Diagnosis Comments CHLAMYDIA AND GONORRHEA, AMPLIFIED Routine 07/17/2019 6:05 PM EST High risk sexual behavior, unspecified type from Last 3 Months or Most Recently Relevant to Health Maintenance Results * Due to [place] law, this organization might not be sharing sensitive test results. * Chlamydia and Gonorrhoea, Amplified (07/17/2019 6:05 PM EST) Chlamydia Trachomatis, DNA Probe NEGATIVE (NEG) [facility] Comment: No Chlamydia Trachomatis RNA detected in this patient's sample ? (REFERENCE RANGE/NORMAL VALUE: NOT DETECTED) ? Note: This test uses security ambassador- mediated amplification method to detect rRNA from C. Trachomatis URINE GC AMP PROBE NEGATIVE (NEG) [facility] Comment: No Neisseria Gonorrhoeae RNA detected in this patient's sample ? (REFERENCE RANGE/NORMAL VALUE: NOT DETECTED) ? NOTE: This test uses security ambassador-mediated amplification method to detect rRNA from N.Gonorrhoeae. A negative result does not preclude infection. In the case of a negative urine result, testing of an endocervical(female) or urethral (male) specimen is recommended if there is high clinical suspicion of infection. Due to very high sensitivity of Nucleic Acid Amplification Test, false positive results may occur. Therefore, specimen handling is extremely important. In patients in whom the disease is unlikely, additional sample for testing should be considered after an initial positive result. The performance characteristics of this test have not been evaluated in children. The Aptima Combo2 assay is not intended for the evaluation of suspected sexual abuse or for other medico-legal indications. The ordering provider should assess if the patient had consensual sex without risk of sexual abuse. Consult the [facility] if needed. Contact phone number . Therapeutic failure or success cannot be determined with the Aptima Combo2 assay since nucleic acid may persist following appropriate antimicrobial therapy. The Centers for Disease Control and Prevention (CDC) recommends confirmatory retesting using culture or a different nucleic acid amplification test when positive results occur, if indicated. Testing performed or reported by [facility], a Service of [facility], [address] [place] [address] Jh Nichole MD, Basic Acoustic Analyst Urine 07/17/2019 6:05 PM EST 07/17/2019 9:16 PM EST us Rosmery Moore MD LAB MICROBIOLOGY - GENERAL ORD ERABLES Final Result [facility] from Last 3 Months or Most Recently Relevant to Health Maintenance [place] [address] [place] [address] NON PCC
--- OUTSIDE RECORDS SUMMARY | 2024-07-18 23:01 | XMS_ITS | Encounter Summary ---
Author Organization [facility] Address [address] [place] [id number] Phone Care Team Providers Care Conduit Reamer Operator Name Role Phone Rosmery Moore MD Primary Care Provider [phone] Encounter Details Date Type Department Care Team (Late st Contact Info) Description 09/03/2016 Documentation [facility] [address], [place] [id number] Family Medicine, Physician [address] [place] [address] Social History Tobacco Use Types Packs/Day Years [...] on filedocumented in this encounter Care Teams Conduit Reamer Operator Relationship Specialty Start Date End Date Rosmery Moore MD [address] [place] [address] SELVIN Villanueva [id number] PCP - General 01/07/17 07/28/22 documented as of this encounter
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
--- OUTSIDE RECORDS SUMMARY | 2024-07-18 23:01 | XMS_ITS | Encounter Summary ---
Author Organization [facility] Address [address] [place] [address] Phone Care Team Providers Care Technical Document Writer Name Role Phone Rosmery [place] MD Primary Care Provider [phone] Encounter Details Date Type Department Care Team (Late st Contact Info) Description 12/16/2015 Documentation [facility] Family Medicine [address] [place], [place] [phone] Family Medicine, Physician [address] [place] [address] Social History Tobacco Use Types Packs/Day Years [...] on filedocumented in this encounter Care Teams Technical Document Writer Relationship Specialty Start Date End Date Rosmery [place] MD [address] [place] [address] SELVIN Villanueva [address] PCP - General 01/07/17 07/28/22 documented as of this encounter
--- OUTSIDE RECORDS SUMMARY | 2024-07-18 23:01 | XMS_ITS | Encounter Summary ---
Author Organization [facility] Address [address] [place] [address] Care Team Providers Care [employer] Hazmat Tanker Driver Name Role Phone Gabrielle [place] MD Primary Care Provider [phone] Encounter Details Date Type Department Care Team ([facility] st Contact Info) Description 06/26/2024 Telephone Obstetrics and Gynecology - [facility] [address] [place] [address] Ines Merchant CNM [address] [place] [address] Social History Tobacco Use Types Packs/Day Years [...] as of this encounter Progress Notes * Ines Merchant CNM - 06/26/2024 4:31 AM EST Pt calling triage approx 5w6d with reports of left sided pain, was evaluated at the ER in [place] and was told to call OB to report FHR ?70's via US. She reports intrauterine . Pt reports discharged with no abnormal findings. Denies vaginal bleeding. [place] [address] Advised normal FHR at this [place], US scheduled 07/04/24. Reviewed SAB precautions and when to call HCG ordered, will repeat quant to ensure increasing appropriately. Pt agreeable to plan documented in this encounter Plan of Treatment Upcoming Encounters Date Type Department Care Team (Late st Contact Info) Description 08/01/2024 10:00 AM EST Clinical Support Obstetrics and Gynecology - [address] [phone] 08/13/2024 11:00 AM EDT Initial Obstetrics and Gynecology - [address] [phone] Sandy Kiran MD [address] [place], [place] documented as of this encounter Results * HCG, quantitative (06/26/2024 4:43 PM EST) hCG Quant 16,107 mIU/mL LAB CHEMISTRY METHOD 06/26/2024 7:23 PM EST [facility] Comment:Results verified by repeat testing Blood Venous blood specimen / Unknown Venipuncture / Unknown 06/26/2024 4:43 PM EST 06/26/2024 4:43 PM EST Narrative [facility] - 06/26/2024 7:23 PM EST Quantitative HCG Reference Ranges Time after Conception ? MIU/ML 0.2-1 Week ? 5-50 1-2 ?? Weeks ? 50-500 2-3 ?? Weeks ?100-5,000 3-4 ?? Weeks ?500-10,000 4-5 ?? Weeks ?1,000-50,000 5-6 ?? Weeks ? 10,000-100,000 6-8 ?? Weeks ? 15,000-200,000 2-3 ?? Months ?10,000-100,000 2nd Trimester ?1,000-94,000 3rd Trimester ?2,500-90,000 Non- Females ?1-3 us Ines Merchant CN LAB BLOOD ORDERABLES Final Result Performing Organization Address [facility] Co de Phone Number NINI AMAYA [place] ([facility]) [facility] [address] [place] [address], documented in this encounter Visit Diagnoses Diagnosis History of miscarriage, currently - Primary documented in this encounter Care Teams [employer] Hazmat Tanker Driver Relationship Specialty Start Date End Date Gabrielle [place] MD [address] [place] [address] SELVIN Villanueva [address] PCP - General Pediatrics 05/09/17 documented as of this encounter
--- OUTSIDE RECORDS SUMMARY | 2024-07-18 23:01 | XMS_ITS | Encounter Summary ---
Author Organization [facility] Address [address] [place] [address] Phone Care Team Providers Care Executive Pilot Name Role Phone Rosmery Moore MD Primary Care Provider [phone] Encounter Details Date Type Department Care Team (Late st Contact Info) Description 06/28/2016 Documentation [facility] [place] [address] [place], [place] [phone] Family Medicine, Physician [address] [place] [address] Social History Tobacco Use Types Packs/Day Years [...] on filedocumented in this encounter Care Teams Executive Pilot Relationship Specialty Start Date End Date Rosmery Moore MD [address] [place] [address] SELVIN Villanueva [address] PCP - General 01/07/17 07/28/22 documented as of this encounter
--- OUTSIDE RECORDS SUMMARY | 2024-07-18 23:01 | XMS_ITS | Encounter Summary ---
Author Organization [facility] Address [address] [place] [phone] Phone Care Team Providers Care Airfield Engineer Officer Name Role Phone Rosmery [place] MD Primary Care Provider [phone] Encounter Details Date Type Department Care Team (Late st Contact Info) Description 06/28/2016 Documentation [facility] Family Medicine [address] [place], [place] [address] Family Medicine, Physician [address] [place] [address] Social History Tobacco Use Types Packs/Day Years [...] on filedocumented in this encounter Care Teams Airfield Engineer Officer Relationship Specialty Start Date End Date Rosmery Moore MD [address] [place] [address] SELVIN Villanueva [address] PCP - General 01/07/17 07/28/22 documented as of this encounter
--- OUTSIDE RECORDS SUMMARY | 2024-07-18 23:01 | XMS_ITS | Encounter Summary ---
Author Organization [facility] Address [address] [place] [address] Phone Care Team Providers Care Business Controller Name Role Phone Rosmery Moore MD Primary Care Provider [phone] Encounter Details Date Type Department Care Team (Late st Contact Info) Description 01/30/2016 Documentation [facility] [place] [address] [place], [place] [phone] Family Medicine, Physician [address] [place] [address] Social History Tobacco Use Types Packs/Day Years [...] on filedocumented in this encounter Care Teams Business Controller Relationship Specialty Start Date End Date Rosmery Moore MD [address] [place] [address] SELVIN Villanueva [address] PCP - General 01/07/17 07/28/22 documented as of this encounter
--- OUTSIDE RECORDS SUMMARY | 2024-07-18 23:02 | XMS_ITS | Encounter Summary ---
Author Organization [facility] Address [address] [place] [address] Phone Care Team Providers Care Doll Surgeon Name Role Phone Rosmery Moore MD Primary Care Provider [phone] Encounter Details Date Type Department Care Team (Late st Contact Info) Description 10/30/2012 Documentation [facility] [place] [address] [place], [place] [phone] Family Medicine, Physician [address] [place] [address] Social History Tobacco Use Types Packs/Day Years [...] on filedocumented in this encounter Care Teams Doll Surgeon Relationship Specialty Start Date End Date Rosmery Moore MD [address] [place] [address] SELVIN Villanueva [address] PCP - General 01/07/17 07/28/22 documented as of this encounter
--- OUTSIDE RECORDS SUMMARY | 2024-07-18 23:02 | XMS_ITS | Encounter Summary ---
Author Organization [facility] Address [address] [place] [address] Care Team Providers Care Photo Offset Printer Name Role Phone Gabrielle Moore MD Primary Care Provider [phone] Reason for Referral * Imaging (Routine) - Pending Review Specialty Diagnoses / Procedures Referred By Contac t Referred To Contact Radiology Diagnoses Irregular menstrual cycle Procedures US OB Less 14 Wks Single or First Gestation Sandy Kiran MD [address] [place] [address] Phone: tel: fax: [address] Phone: tel: Referral ID Status Reason Start Date Expiration Date V isits Requested Visits Authorized [id number] Pending Review 06/20/2024 06/20/2025 1 1 Reason for Visit * Imaging (Routine) - Pending Review Specialty Diagnoses / Procedures Referred By Contac t Referred To Contact Radiology Diagnoses Irregular menstrual cycle Procedures US OB Less 14 Wks Single or First Gestation Sandy Kiran MD [address] [place] [address] Phone: tel: fax: [address] Phone: tel: Referral ID Status Reason Start Date Expiration Date V isits Requested Visits Authorized [id number] Pending Review 06/20/2024 06/20/2025 1 1 Encounter Details Date Type Department Care Team (Latest Contact Info) Description 07/10/2024 8:30 AM EST - 07/10/2024 11:59 PM EST Hospital Encounter Radiology Department - [address] [address] Irregular menstrual cycle Discharge Disposition: Home or Self Care Social History Tobacco Use Types Packs/Day Years [...] on file documented as of this encounter Medications at Time of Discharge medroxyPROGESTERo ne 150 mg/mL injection Inject 1 mL into the muscle Every 3 Months. 02/15/2023 metroNIDAZOLE (FLAGYL) 500 mg tabletIndications :trichomoniasis Take 1 tablet (500 mg total) by mouth 2 (two) times a day. Do not use mouth wash or consume alcohol until 48 hours after last dose 06/19/2024 nitrofurantoin, macrocrystal-mono hydrate, (MACROBID) 100 mg capsuleIndication s:bacterial urinary tract infection Take 1 capsule (100 mg total) by mouth 2 (two) times a day. PNV no.95/ferrous fum/folic ac ( ORAL) Take 1 Tablet by mouth daily. 01/22/2022 PNV,calcium 88-gjsa-fedpm acid (M-Ced Plus) 27 mg iron- 1 mg tablet Take 1 tablet by mouth 1 (one) time each day. 90 tablet 3 06/19/2024 sertraline (ZOLOFT) 25 mg tablet 1 tab daily for 2 weeks, then increase to 2 tabs daily 02/15/2023 documented as of this encounter Discharge Disposition Disposition Code Departure Means Destination Home or Self Care documented in this encounter Plan of Treatment Upcoming Encounters Date Type Department Care Team (Late st Contact Info) Description 08/01/2024 10:00 AM EST Clinical Support Obstetrics and Gynecology - [address] [phone] 08/13/2024 11:00 AM EDT Initial Obstetrics and Gynecology - [address] [phone] Sandy Kiran MD [address] [place], [place] documented as of this encounter Procedures Procedure Name Priority Date/Time Associated Diagnosis Comments US OB LESS 14 WKS SINGLE OR FIRST GESTATION Routine 07/10/2024 8:53 AM EST Irregular menstrual cycle documented in this encounter Results * US OB Less 14 Wks Single or First Gestation (07/10/2024 8:53 AM EST) Anatomical Region Laterality Modality Body Ultrasound 07/10/2024 10:2 0 AM EST Impressions 07/10/2024 10:24 AM EST Single live intrauterine with an estimated gestational age of 7 weeks, 2 days (ANJELICA 02/24/2025). ?? POS [id number] -------- FINAL REPORT -------- Dictated By: Julienne Evangelista Dictated Date: 07/10/2024 10:20 ET Assigned Physician: Julienne Evangelista Reviewed and Electronically Signed By: Julienne Evangelista Signed Date: 07/10/2024 10:24 ET Workstation ID: [id number] Transcribed By: Self Edit Transcribed Date: 07/10/2024 10:20 ET Narrative 07/10/2024 10:24 AM EST PELVIC OBSTETRICAL ULTRASOUND HISTORY: patient with irregular menstrual periods. ??Assess dating. COMPARISON: ??None recent FINDINGS: Transabdominal pelvic ultrasound was performed. ?? Uterus: Intrauterine gestational sac, yolk sac, and pole. ??[place]-rump length 1.1 cm which corresponds with an [...] Uterus: Intrauterine gestational sac, yolk sac, and pole.[place]-rump length 1.1 cm which corresponds with an [...] of 7weeks, 2 days (ANJELICA 02/24/2025). POS [id number] -------- FINAL REPORT -------- Dictated By: Julienne Evangelista Dictated Date: 07/10/2024 10:20 ET Assigned Physician: Julienne Evangelista Reviewed and Electronically Signed By: Julienne Evangelista Signed Date: 07/10/2024 10:24 ET Workstation ID: [id number] Transcribed By: Self Edit Transcribed Date: 07/10/2024 10:20 ET us Sandy Kiran MD IMG OB US PROCEDURES Final Result documented in this encounter Visit Diagnoses Diagnosis Irregular menstrual cycle documented in this encounter Care Teams Photo Offset Printer Relationship Specialty Start Date End Date Gabrielle Moore MD [address] [place] [address] [place] [address] PCP - General Pediatrics 05/09/17 documented as of this encounter
--- OUTSIDE RECORDS SUMMARY | 2024-07-18 23:02 | XMS_ITS | Encounter Summary ---
Author Organization [facility] Address [address] [place] [address] Phone Care Team Providers Care Mechanical Engineering Lecturer Name Role Phone Rosmery Moore MD Primary Care Provider [phone] Reason for Visit * Reason Comments Med Refill Encounter Details Date Type Department Care Team (Late st Contact Info) Description 11/16/2019 Refill [facility] [place] [address] [place] [address] Rosmery Moore MD [address] [place] [address] Mild persistent asthma without complication Social History Tobacco Use Types Packs/Day Years [...] on file documented as of this encounter Miscellaneous Notes * Telephone Encounter - Shanta Borjas LPN - 11/16/2019 10:02 AM EDT Nurse Fair from [facility] calling to ask which pharmacy flovent will be sent to. [address] documented in this encounter Plan of Treatment Not on file documented as of this encounter Visit Diagnoses Diagnosis Mild persistent asthma without complication documented in this encounter Care Teams Mechanical Engineering Lecturer Relationship Specialty Start Date End Date Rosmery Moore MD [address] [place] [address] [place] [address] PCP - General 01/07/17 07/28/22 documented as of this encounter
--- OUTSIDE RECORDS SUMMARY | 2024-07-18 23:02 | XMS_ITS | Encounter Summary ---
Author Organization [facility] Address [address] [place] [address] Care Team Providers Care Bending Roll Operator Name Role Phone Gabrielle Moore MD Primary Care Provider [phone] Reason for Visit * Reason Onset Date Comments 06/27/2024 Encounter Details Date Type Department Care Team ([facility] st Contact Info) Description 06/27/2024 Telephone Obstetrics and Gynecology - [address] [place] [address] Radha Hoffman, [facility] [address] [place] [address] Social History Tobacco Use Types Packs/Day Years [...] as of this encounter Progress Notes * Christen Castaneda RN - 06/27/2024 11:25 AM EST Patient reports she was seen at [facility] and they did u/s --she has u/s scheduled here 07/04/24. * Lamar Winter - 06/27/2024 10:31 AM EST Chief Complaint/problem: patient would like to speak to nurse regarding HCG labwork she had done. Please call How long has the patient had this problem? - Pt???s LATEX DIPPER provider: Radha Hoffman CNM Last menstrual period (LMP) or EDC (due date): - documented in this encounter Plan of Treatment Upcoming Encounters Date Type Department Care Team (Late st Contact Info) Description 08/01/2024 10:00 AM EST Clinical Support Obstetrics and Gynecology - [address] [phone] 08/13/2024 11:00 AM EDT Initial Obstetrics and Gynecology - [address] [phone] Sandy Kiran MD [address] [place] [phone] documented as of this encounter Visit Diagnoses Not on filedocumented in this encounter Care Teams Bending Roll Operator Relationship Specialty Start Date End Date Gabrielle Moore MD [address] [place] [address] [place] [address] PCP - General Pediatrics 05/09/17 documented as of this encounter
--- OUTSIDE RECORDS SUMMARY | 2024-07-18 23:02 | XMS_ITS | Encounter Summary ---
Author Organization [facility] [place] Address [address] [place] [address] Care Team Providers Care Manager Winter Name Role Phone Gabrielle Moore MD Primary Care Provider [phone] Reason for Referral * Imaging (Routine) - Pending Review Specialty Diagnoses / Procedures Referred By Katelynn traore Referred To Contact Radiology Diagnoses Irregular menstrual cycle Procedures US OB Less 14 Wks Single or First Gestation Sandy Kiran MD [address] [place] [address] Phone: tel: fax: [address] Phone: tel: Referral ID Status Reason Start Date Expiration Date V isits Requested Visits Authorized [id number] Pending Review 06/20/2024 06/20/2025 1 1 Encounter Details Date Type Department Care Team ([facility] st Contact Info) Description 06/20/2024 Telephone Obstetrics and Gynecology - [address] [phone] Christen Castaneda RN Social History Tobacco Use Types Packs/Day Years [...] Progress Notes * Christen Castaneda RN - 06/20/2024 9:09 AM EST Spoke with pt. Transferred to radiology to schedule u/s in 2 weeks. documented in this encounter Plan of Treatment Upcoming Encounters Date Type Department Care Team (Late st Contact Info) Description 08/01/2024 10:00 AM EST Clinical Support Obstetrics and Gynecology - [address] [phone] 08/13/2024 11:00 AM EDT Initial Obstetrics and Gynecology - [address] [phone] aSndy Kiran MD [address] [place] [phone] documented as of this encounter Results * US OB Less 14 Wks Single or First Gestation (07/10/2024 8:53 AM EST) Anatomical Region Laterality Modality Body Ultrasound 07/10/2024 10:2 0 AM EST Impressions 07/10/2024 10:24 AM EST Single live intrauterine with an estimated gestational age of 7 weeks, 2 days (ANJELICA 02/24/2025). ?? POS [id number] -------- FINAL REPORT -------- Dictated By: Julienne Evangelista Dictated Date: 07/10/2024 10:20 ET Assigned Physician: Julienne Evangelista Reviewed and Electronically Signed By: Julienne Evangelista Signed Date: 07/10/2024 10:24 ET Workstation ID: [id number] Transcribed By: Self Edit Transcribed Date: 07/10/2024 10:20 ET Narrative 07/10/2024 10:24 AM EST PELVIC OBSTETRICAL ULTRASOUND HISTORY: patient with irregular menstrual periods. ??Assess dating. COMPARISON: ??None recent FINDINGS: Transabdominal pelvic ultrasound was performed. ?? Uterus: Intrauterine gestational sac, yolk sac, and pole. ??[place]-rump length 1.1 cm which corresponds with an [...] Uterus: Intrauterine gestational sac, yolk sac, and pole.[place]-rump length 1.1 cm which corresponds with an [...] of 7weeks, 2 days (ANJELICA 02/24/2025). POS [id number] -------- FINAL REPORT -------- Dictated By: Julienne Evangelista Dictated Date: 07/10/2024 10:20 ET Assigned Physician: Julienne Evangelista Reviewed and Electronically Signed By: Julienne Evangelista Signed Date: 07/10/2024 10:24 ET Workstation ID: [id number] Transcribed By: Self Edit Transcribed Date: 07/10/2024 10:20 ET us Sandy Kiran MD IMG OB US PROCEDURES Final Result documented in this encounter Visit Diagnoses Diagnosis Irregular menstrual cycle- Primary Irregular menstrual cycle documented in this encounter Care Teams Manager Winter Relationship Specialty Start Date End Date Gabrielle Moore MD [address] [place] [address] [place] [address] PCP - General Pediatrics 05/09/17 documented as of this encounter
--- OUTSIDE RECORDS SUMMARY | 2024-07-18 23:02 | XMS_ITS | Clinical Summary ---
Author Organization [facility] Address [address] [place] [address] Care Team Providers Care Sandfill Operator Surface Name Role Phone Rosmery Moore MD Primary Care Provider Social History Tobacco Use Types Packs/Day Years Used Date Smoking Tobacco: Never Assessed Sex and Gender Information Value Date Recorded Sex Assigned at Female 05/14/2022 11:54 AM EST Gender Identity Female 05/20/2022 12:22 PM EST Sexual Orientation Not on file Job Start Date Occupation Industry Not on file Not on file Not on file Plan of Treatment Health Maintenance Due Date Last Done Comments Hepatitis B Vaccines (1 of 3 - 3-dose series) 2003 Hepatitis C Screening 2003 COVID-19 Vaccine (#1) 2003 Depression Screening 2015 Gonorrhea and Chlamydia Screening 2016 Preventative Health Evaluation 2021 Influenza Vaccine (#1) 2024 9, 08/26/2017, 03/04/2016, Additional history exists Cervical Cancer Screening (Pap Smear) 2024 DTap / Tdap / Td (8 - Td or Tdap) 07/12/2032 07/12/2022, 03/20/2015, 08/22/2007, Additional history exists Pneumococcal Vaccine Completed 09/15/2004, 01/20/2004, 2003, Additional history exists RSV Ped < 20 months Aged Out No longe r eligible based on patient's age to complete this topic Care Teams Sandfill Operator Surface Relationship Specialty Start Date End Date Rosmery Moore MD [address] [place] [address] [address] [place] [address] PCP - General 05/20/22
--- OUTSIDE RECORDS SUMMARY | 2024-07-18 23:02 | XMS_ITS | Encounter Summary ---
Author Organization [facility] Address [address] [place] [address] Care Team Providers Care A And P Technician Name Role Phone Gabrielle Moore MD Primary Care Provider [phone] Reason for Visit * Reason Comments Confirmation Encounter Details Date Type Department Care Team (Latest Contact Info) Description 06/19/2024 1:00 PM EST Clinical Support Obstetrics and Gynecology - [address] [phone] test positive (Primary Dx) Social History Tobacco Use Types Packs/Day Years [...] on file documented as of this encounter Last Filed Vital Signs Vital Sign Reading [...] Mass Index 24.37 06/19/2024 11:16 AM EST documented in this encounter Ordered Prescriptions Prescription Sig Dispense Quantity Refills Last Filled Start Date End Date PNV,calcium 95-koln-jflhn acid (M-Ced Plus) 27 mg iron- 1 mg tablet Take 1 tablet by mouth 1 (one) time each day. 90 tablet 3 06/19/2024 documented in this encounter Progress Notes * Kelly Eugene RN - 06/19/2024 1:00 PM EST MEDICATIONS SAFE TO TAKE IN Caution: do not exceed manufacturers recommendations Allergies: Benadryl (diphenhydramine) Claritin Zyrtec Cold and Flu: Acetaminophen (Tylenol) Tylenol Cold (not multi-symptom) Warm salt/water gargle Saline nasal drops/spray Chlor-Trimenton Robitussin (plain only) Triaminic cough Vicks Cough Syrup Cough drops Congestion: Saline nasal drops/spray Dristan nasal spray Constipation: Metamucil, Citrucel, Benefiber Colace, Dulcolax Senokot Milk of Magnesia Miralax Diarrhea: Imodium Kaopectate First aid ointment: Bacitracin Neosporin Polysporin Gas: Simethicone Gas X Mylicon Phazyme GERD/Heartburn/Indigestion: Maalox Mylanta Tums Cori Perry Tagamet Pepcid Zantac Headache: Acetaminophen (Tylenol) Insomnia: Unisom Sleep tabs Benadryl Hemorrhoids: Preparation H Anusol HC Tucks Cortaid Witch Josy Nausea and vomiting: Sea Bands/Biobands Desmond or candied or crystallized desmond Vitamin B6 50mg tablets (or half of a 100 mg tablet) Vitamin B6 50mg 3 times a day with Unisom sleep tabs 1/2 tab 3 times a day (may cause drowsiness) Dramamine (may cause drowsiness) Rashes: Hydrocortisone 1% cream or ointment Caladryl lotion or cream Benadryl cream Oatmeal bath (Aveeno) Yeast Infection: Monistat or Terazol (do not insert applicator too far) Clotrimazole 1% * Kelly Eugene RN - 06/19/2024 1:00 PM EST LMP date: Unknown --POSITIVE Back office test HCG Quant ordered today Current medication list review Allergies: PCN Pharmacy: [facility] [place] Any current medical problems?: None Any previous complications?: SAB 05/16/24 SAVD 08/2022 , SAB 2021 (1st send prescription for Aspirin 81mg 1 tab po daily if between 6 week - 13w6d gestation. If BMI 30 or greater, CHTN, Hx Pre-E. Twins: can wait till 12 weeks to order as will need 162mg daily) Patient is not currently being treated for insulin dependent diabetes. Patient is not currently being treated for hypertension. Patient doesn't have a history of ectopic , has a history of miscarriage, and doesn't havea history of termination. Appointment is to be made with MD prior to OB work up if pt is currently being treated for hypertension. Patients currently being treated for diabetes should establish care with a [facility] provider. OK to see CNM for IP visit? Yes Pre- Weight (if known): 129lb Height: 5'1 Pre- BMI: 24.37 Recommended weight gain: Flor: BMI 18.5 to 24.9 kg/m2 (normal weight) - Weight gain 25 to 35 lb (11.5 to 16.0 kg) (BMI equal or greater than 50 prior to or at 28 weeks needs to deliver at [facility]). Pre BMI of 50 or more should continue to be transferred to [facility] prior to establishingcare. Pt was counseled that we only deliver at [facility]. She is aware that if she would like to deliver at [facility] will need to establish care with a [facility] provider. Schedule Workup for 10 weeks: In Person scheduled TBD Schedule IP at 12 weeks with appropriate provider: scheduled TBD Warning signs of vaginal bleeding and pelvic pain were reviewed. The patient was advised to call the office, day or night, if these symptoms occur. Patient instructions relating to nausea and vomiting in the 1st trimester, what to avoid in (alcohol, drugs, smoking, environmental exposures), dietary and medication restrictions and self care for colds and flu given to patient. A prescription for Vitamins Plus was sent to the pharmacy. The patient understands all instructions and is in agreement with plan of care. documented in this encounter Plan of Treatment Upcoming Encounters Date Type Department Care Team (Late st Contact Info) Description 08/01/2024 10:00 AM EST Clinical Support Obstetrics and Gynecology - [address] [phone] 08/13/2024 11:00 AM EDT Initial Obstetrics and Gynecology - [address] [phone] Sandy Kiran MD [address] [place], [place] documented as of this encounter Procedures Procedure Name Priority Date/Time Associated Diagnosis Comments POC , URINE DIAGNOSTIC Routine 06/19/2024 11:35 AM EST test positive documented in this encounter Results * (ABNORMAL) POC , urine manually resulted (06/19/2024 11:35 AM EST) HCG, Ur POC Positive(A ) Negative POC hCG Int QC Pass? Yes Yes Urine Urine specimen obtained by clean catch procedure / Unknown 06/19/2024 11:35 AM EST Sandy Kiran MD POINT OF CARE TEST ENTER/ED IT ORDERABLES Final Result documented in this encounter Visit Diagnoses Diagnosis test positive- Primary examination or test, positive result documented in this encounter Historical Medications * This list may reflect changes made after this encounter. metroNIDAZOLE (FLAGYL) 500 mg tabletIndications :trichomoniasis Take 1 tablet (500 mg total) by mouth 2 (two) times a day. Do not use mouth wash or consume alcohol until 48 hours after last dose 06/19/2024 nitrofurantoin, macrocrystal-mono hydrate, (MACROBID) 100 mg capsuleIndication s:bacterial urinary tract infection Take 1 capsule (100 mg total) by mouth 2 (two) times a day. added in this encounter Care Teams A And P Technician Relationship Specialty Start Date End Date Gabrielle Moore MD [address] [place] [address] PCP - General Pediatrics 05/09/17 documented as of this encounter
--- OUTSIDE RECORDS SUMMARY | 2024-07-18 23:02 | XMS_ITS | Encounter Summary ---
Author Organization [facility] Address [address] [place] [address] Phone Care Team Providers Care Outside Sales Executive Name Role Phone Rosmery Moore MD Primary Care Provider [phone] Encounter Details Date Type Department Care Team (Late st Contact Info) Description 10/14/2016 Documentation [facility] [place] [facility] [address] [place], [place] [id number] Family Medicine, Physician [address] [place] [address] Social History Tobacco Use Types Packs/Day Years [...] on filedocumented in this encounter Care Teams Outside Sales Executive Relationship Specialty Start Date End Date Rosmery Moore MD [address] [place] [address] [place] [address] PCP - General 01/07/17 07/28/22 documented as of this encounter
--- OUTSIDE RECORDS SUMMARY | 2024-07-18 23:02 | XMS_ITS | Encounter Summary ---
Author Organization [facility] Address [address] [place] [address] Care Team Providers Care Entry Level Finance Name Role Phone Gabrielle Moore MD Primary Care Provider Encounter Details Date Type Department Care Team (Late Contact Info) Description 06/19/2024 Telephone Obstetrics and Gynecology - [address] [phone] Kelly Eugene, NIKOLAS Social History Tobacco Use Types Packs/Day Years [...] as of this encounter Plan of Treatment Upcoming Encounters Date Type Department Care Team (Late Contact Info) Description 08/01/2024 10:00 AM EST Clinical Support Obstetrics and Gynecology - [address] [phone] 08/13/2024 11:00 AM EDT Initial Obstetrics and Gynecology - [address] [phone] Sandy Kiran MD [address] [place], [place] documented as of this encounter Visit Diagnoses Not on filedocumented in this encounter Care Teams Entry Level Finance Relationship Specialty Start Date End Date Gabrielle Moore MD [address] [facility] [place] [address] PCP - General Pediatrics 05/09/17 documented as of this encounter
--- OUTSIDE RECORDS SUMMARY | 2024-07-18 23:02 | XMS_ITS | Encounter Summary ---
Author Organization [facility] Address [address] [place] [address] Phone Care Team Providers Care Recyclable Materials Collector Name Role Phone Rosmery Moore MD Primary Care Provider [phone] Encounter Details Date Type Department Care Team (Late st Contact Info) Description 01/13/2017 Conversion Encounter [facility] - [address] [address] Social History Tobacco Use Types Packs/Day Years [...] on filedocumented in this encounter Care Teams Recyclable Materials Collector Relationship Specialty Start Date End Date Rosmery Moore MD [address] [place] [address] PCP - General 01/07/17 07/28/22 documented as of this encounter
[2024-07-18 23:39] VITALS: BP 97/48; PULSE 78; RESP 20; TEMP 36.7; O2SAT 100
[2024-07-19] MEDS: Nitrofurantoin Monohyd/M-Cryst 100 MG CAPSULE PO (00:32)
[2024-07-19 00:58] VITALS: BP 101/61; PULSE 72; RESP 16; TEMP 36.8; O2SAT 96
[2024-07-19 01:18] VITALS: BP 101/61; PULSE 72; RESP 16; TEMP 36.8; O2SAT 96
[2024-07-19 03:07] LABS: CT PCR NOT DETECTED (Not Detect.); NG PCR NOT DETECTED (Not Detect.)
[2024-07-19 13:56] LABS: Bacterial Vaginosis PCR NEGATIVE (Negative); Candida Group PCR NOT DETECTED (Not Detect); Candida glab krusei PCR NOT DETECTED (Not Detect); Trichomonas vaginalis PCR NOT DETECTED (Not Detect)
== END 2024-07-19 01:25 | disposition home or self-care (01) ==
PROVIDERS: Physician Assistant; Emergency Provider Emergency Medicine
DX: O23.41 Unspecified infection of urinary tract in pregnancy, first trimester (principal); N39.0 Urinary tract infection, site not specified; O26.891 Other specified pregnancy related conditions, first trimester; Z20.2 Contact with and (suspected) exposure to infections with a predominantly sexual mode of transmission; Z3A.08 8 weeks gestation of pregnancy
CPT/HCPCS: 36415; 51798; 80053; 81001; 81515; 83690; 84702; 85025; 87491; 87591; 99284

== ENCOUNTER 2024-08-02 13:29 | Emergency (ER) | payer OTHER, SELFPAY ==
--- NOTE | ~2024-08-02 | US_ITS ---
EXAMINATION: US OBSTETRICAL ULTRASOUND CLINICAL INFORMATION: 11 week . Cramping and bleeding. COMPARISON: June 29, 2024. LMP: No provided. Gestational age by maternal dates is no estimated. Estimated date of delivery by maternal dates is no estimated. TECHNIQUE: Real-time transabdominal obstetric pelvic ultrasound performed using grayscale and color Doppler technique. FINDINGS: There is a single intrauterine gestational sac with visible yolk sac, embryo/fetus, and cardiac activity. There is no significant subchorionic hemorrhage or hematoma. HR: 158 beats per minute. CRL (crown rump length): (11 weeks and 4 days +/- 4 days). ANJELICA (estimated date of delivery): 02/17/2025 +/- 4 days. US/US OB limited IMPRESSION: 1. Single intrauterine gestation with ultrasound gestational age of 11 weeks and 4 days +/- 4 days. 2. Estimated date of delivery is 02/17/2025 +/- 4 days. Electronically signed by: Stew Gerber MD 08/02/2024 03:13 PM [facility] [place]
[2024-08-02 14:15] VITALS: BP 109/72; PULSE 80; RESP 16; TEMP 37; O2SAT 100; BMI 21.6
--- NOTE | 2024-08-02 14:16 | ED_ITS ---
HPI - General Chief complaint: Recheck/Abnormal Lab/Rx Stated complaint: Abnormal labs, 11 wks preg, sent by Dr Time Seen by Provider: 08/02/24 15:48 Source: patient, RN notes reviewed and old records reviewed Mode of arrival: ambulatory History of Present Illness ED Provider: Janina Patel PA-C HPI Narrative: 19-year-old female with a past medical history ADHD, depression, PTSD, @11 weeks gestation presenting to ED sent in by OBGYN for abnormal outpatient labs taken yesterday. Patient states her TSH was noted to be low, free T3 and T4 WNL. Reports generally feeling unwell for the past month with associated chills, palpitations, SOB, chest pain, shakiness, and mental fog. Reports some abdominal cramping over the past couple of days. Denies vaginal bleeding / discharge, dysuria /hematuria, nausea/vomiting. states vs was uncomplicated Related Data Home Medications ?Medication ?Instructions ?Recorded ?Confirmed vitamin 1 tab PO DAILY 11/05/21 11/05/21 no.76-iron,carbonyl 29 mg iron-folic acid 1 mg tablet (Thrivite Rx) Previous Rx's ?Medication ?Instructions ?Recorded pyridoxine (vitamin B6) 25 mg 25 mg PO TID PRN nausea #30 tabs 11/05/21 tablet cefuroxime axetil 250 mg tablet 250 mg PO BID #10 tabs 05/17/24 doxycycline hyclate 100 mg capsule 100 mg PO BID 14 days #27 caps 05/17/24 metronidazole 500 mg tablet 500 mg PO BID 14 days #27 tabs 05/17/24 ondansetron 4 mg disintegrating 4 mg PO Q8H PRN nausea and 05/17/24 tablet vomiting #10 tabs doxylamine 10 mg-pyridoxine (vit 1 tab PO BID #30 tabs 06/17/24 B6) 10 mg tablet,delayed release nitrofurantoin 100 mg PO Q12H 7 days #14 caps 06/17/24 monohydrate/macrocrystals 100 mg capsule (Macrobid) metronidazole 500 mg tablet 500 mg PO BID #14 tabs 06/19/24 doxylamine succinate 25 mg tablet 25 mg PO TID PRN Nausea vomiting 07/19/24 #30 tabs nitrofurantoin 100 mg PO Q12H 7 days #14 caps 07/19/24 monohydrate/macrocrystals 100 mg capsule (Macrobid) pyridoxine (vitamin B6) 25 mg 25 mg PO TID PRN nausea and 07/19/24 tablet vomiting #30 tabs Allergies Allergy/AdvReac Type Severity Reaction Status Date / Time broccoli [BROCCOLI] Allergy Severe ANAPHYLAXIS Verified 08/02/24 14:19 penicillin V Allergy Mild Hives Verified 08/02/24 14:19 Penicillins [PENICILLINS] Allergy Mild RASH Verified 08/02/24 14:19 amoxicillin Allergy Unknown Unknown Verified 08/02/24 14:19 Review of Systems 2 Review of Systems: Yes all other systems are reviewed and are negative Constitutional: Constitutional: Reports as per HPI Neurologic: Denies Abnormal speech present [facility] Past Medical History Attestation statement: The following information was validated with the patient. Source: old records reviewed Medical History PTSD (post-traumatic stress disorder) Prolonged QT interval Depression ADHD Surgical History No pertinent past surgical history Social History Social History Alcohol intake: never Patient Tobacco Use Status: Current everyday Tobacco user Substance Use Type: Marijuana Physical Exam 2 Vital Signs: Vital Signs: Last Vital Signs Temp 98.4 F 08/02/24 19:21 Pulse 72 08/02/24 19:21 Resp 16 08/02/24 19:21 BP 107/54 L 08/02/24 19:21 Pulse Ox 98 08/02/24 19:21 O2 Del Method Room Air 08/02/24 19:21 BMI result Body Mass Index 21.6 Const: General: cooperative, healthy appearing and no acute distress O rientation/consciousness: patient oriented x3 Limitations: no limitations HEENT: Head: Yes normal to inspection and Yes atraumatic Ears: hearing grossly normal bilaterally General nose exam: Normal external nose present Face and sinus: Yes normal facial exam Eyes: General: appearance normal, both eyes and all related structures EOM: EOMs intact bilaterally Neck: Neck: Yes normal visual inspection and Yes no meningeal signs Resp: Effort & Inspection: normal respiratory effort and no respiratory distress Auscultation: clear to auscultation bilaterally, no crackles, no rales, no rhonchi and no wheezes Cardio: Rate: regular rate Heart sounds: S1 normal heart sound present and S2 normal heart sound present GI: Inspection: Yes normal to inspection Palpation (GI): Soft to palpation, nontender, no guarding and not rigid Skin: Rashes: no rashes Wounds: no wounds Neuro: General: patient oriented x3, tone normal, moves all extremities, no meningeal signs, no focal motor deficits and CN's II-XI intact bilaterally C ranial nerves: Yes CN's II-XII intact bilaterally and Yes Bilaterally intact EOM present Cognition (Neuro): normal cognition Speech: No Abnormal speech present Gait exam (Neuro): Normal gait present Motor exam (neuro): 5/5 motor strength present throughout Extrem: General: Yes normal to inspection Course Course Course Narrative: This is an RME: Additional HPI, ROS, PE not included below will be deferred to primary provider. RME assessment and note performed by: Sayra Abraham PA-C This is a 27-polw[age]jnp-female, 11 weeks , who presents to the ER with complaint of ?abn labs. Reports that she had her thyroid checked and TSH <0.1 yesterday. OBGYN > goes to [facility] in [place]. Reporting palpitations, SOB, shakiness, and mental fog. Was called this AM and was told to come to the ER due to labs. Reporting some lower abd cramping and spotting. No hx of thyroid problems. Plan: Labs, ekg, us, further ER eval needed -1609-- no leukocytosis. H/H stable. Troponin negative. - TSH low at 0.05. - hCG 86,843. A positive - viral testing negative US OB <= 14 weeks fetus IMPRESSION: 1. Single intrauterine gestation with ultrasound gestational age of 11 weeks and 4 days +/- 4 days. 2. Estimated date of delivery is 02/17/2025 +/- 4 days. -1614-- free T4 within normal limits. Will consult OBGYN, Dr. Wolf >> case discussed with Dr. Wolf be recommended follow-up with patient's OBGYN in 1-2 weeks with repeat TSH and free T3 & T4 to confirm. TSH decreases in early because of hCG during the 1st 12 weeks of gestation. No initiation of medications is recommended at this time. We will give patient strict return precautions /signs and symptoms of hyperthyroidism & SAB (patient has results of TSH, T3 and T4 on phone/portal, TSH was low on their outpatient labs & both T3 and T4 were within normal limits) -1640-- Spoke with [facility] OBGYN office, nurse Berkley who was sent patient to the emergency department. Discussed results, and needed close follow-up/repeat blood work in 1-2 weeks. States patient has an appointment on 08/13/2024, they will also put a referral in for patient to see endocrinology. Patient is in agreement with plan - UA with trace leuk esterase, no protein. Not infected. Contaminated. -T3 is a send out lab & will not be resulted today Results discussed with patient including worrisome signs and symptoms and strict return precautions, and when to return to the emergency department. They verbalized understanding and feel safe for discharge at this time. Medical Decision Making Medical Decision Making MDM Narrative: 19-year-old female with a past medical history ADHD, depression, PTSD, @11 weeks gestation presenting to ED sent in by OBGYN for abnormal outpatient labs taken yesterday. Reports generally feeling unwell for the past month with associated chills, palpitations, SOB, chest pain, shakiness, and mental fog. On exam vital signs stable, NAD, nontoxic appearing, no focal neuro deficits, abdomen is soft and nontender. Concern for hypothyroidism in vs metabolic abnormalities. Lower suspicion for ACS / PE or DVT with duration of symptoms. Unlikely CVA/ TIA, meningitis or encephalitis. Rule out threatened with abdominal pain. No bleeding. Plan: EKG, labs, UA, viral testing, OB ultrasound, consult OBGYN Please refer to course for remaining clinical decision making, interpretation of labs/imaging results, and discussions with consultants and/or family members. Differential Diagnosis Differential Diagnoses: The differential diagnosis associated with the presentation includes As above Admission/Observation Consideration of admission/observation: Escalation of care including admission/observation considered Consult Healthcare Provider Management of the patient was discussed with: Disease Education Specialist ( OBGYN, Dr. Wolf) Lab Data [facility] Lab Attestation statement: I reviewed the patient's lab results. 08/02/24 14:34 08/02/24 14:34 Labs: Lab Results 03/06/25 03/06/25 Range/Units 14:34 18:03 WBC 7.4 (4.8-10.8) X10*3/uL RBC 4.07 L (4.20-5.50) X10*6/uL Hgb 12.8 (12.0-16.0) g/dl Hct 36.2 L (37.0-47.0) % MCV 88.9 (80.0-98.0) fL MCH 31.4 (27.0-33.0) pg MCHC 35.4 H (31.0-35.0) g/dl RDW 12.1 (11.0-16.0) % Plt Count 200 (160-400) X10*3/uL MPV 9.9 (9.4-12.3) fL Immature Gran % (Auto) 0.1 (0.0-0.4) % Neut % (Auto) 52.1 (45-73) % Lymph % (Auto) 37.4 (20-40) % Branch % (Auto) 8.9 (2-11) % Eos % (Auto) 1.1 (0-4) % Baso % (Auto) 0.4 (0-2) % Lymph # (Auto) 2.8 (1.2-4.9) X10*3/uL Branch # (Auto) 0.7 (0.1-1.2) X10*3/uL Eos # (Auto) 0.1 (0.0-0.4) X10*3/uL Baso # (Auto) 0.0 (0.0-0.2) X10*3/uL Abs Immat Gran (auto) 0.01 (0.00-0.03) X10*3/uL Absolute Neuts (auto) 3.9 (2.0-8.3) x10*3/uL Absolute Nucleated RBC 0.000 (0.0-0.012) X10*3/uL Nucleated RBC % (auto) 0.0 (0.0-0.2) /100WBC Sodium 138 (135-145) mmol/L Potassium 4.1 (3.3-5.1) mmol/L Chloride 105 (96-108) mmol/L Carbon Dioxide 26 (22-29) mmol/L Anion Gap 11 L (12-20) BUN 5 L (9-16) mg/dL Creatinine 0.70 (0.5-1.4) mg/dL Estim Creat Clear Calc 114.3 Estimated GFR > 60 Random Glucose 71 (60-115) mg/dL Calcium 8.6 (8.4-10.2) mg/dL Magnesium 1.8 (1.6-2.6) mg/dL Total Bilirubin 0.3 (0.0-1.0) mg/dL Direct Bilirubin 0.1 (0.0-0.5) mg/dL AST 17 (5-31) U/L ALT 10 (0-31) U/L Alkaline Phosphatase 49 (39-117) U/L Troponin I High Sens < 2.7 (<3.5-17.0) ng/L Total Protein 6.5 (6.5-8.0) g/dL Albumin 3.8 (3.5-5.0) g/dL TSH 0.05 L (0.32-4.0) uIU/mL Free T4 1.02 (0.71-1.85) ng/dL Beta HCG, Quant 48928 mIU/mL Urine Color Yellow Urine Appearance Clear Urine pH 7.0 (5.0-9.0) Ur Specific Strong <= 1.005 (1.005-1.025) Urine Protein Negative (Neg-Trace) mg/dL Urine Glucose (UA) Negative (Negative) mg/dL Urine Ketones Negative (Negative) mg/dL Urine Blood Negative (Negative) Urine Nitrite Negative (Negative) Ur Leukocyte Esterase Trace H (Negative) Urine RBC 0-2 (0-2) /HPF Urine WBC 0-5 (0-5) /HPF Ur Squamous Epith Cells 11-20 (0-2) /HPF Urine Bacteria Trace (None Seen) Hyaline Casts 0-2 (0-2) /LPF Influenza Type A (PCR) NEGATIVE (Negative) Influenza Type B (PCR) NEGATIVE (Negative) RSV RNA Qual (PCR) NEGATIVE (Negative) SARS-CoV-2 RNA (RT-PCR) NEGATIVE (Negative) Blood Type A Positive Independent Interpretation I performed an independent interpretation of an: EKG ( my interpretation: EKG normal sinus rhythm rate of 66. AK interval 150. QTC 438. No STEMI.) and Ultrasound Radiology Impression Discussion of test interpretation with radiology: I have reviewed the radiologist's reading. External Record Review External record reviewed: Inpatient record, Office record, Outpatient record, Prior outpatient labs, Prior outpatient radiology, Primary care record and Outside ED record Tests considered The following testing was considered but not selected: As above Prescription Management I considered prescription management with: Other Chronic Conditions Patient?s care impacted by: Other Social Determinants Patient?s care significantly limited by Social Determinants of Health including: Other Social Determinant of Health Discharge Plan Discharge Clinical Impression: Low TSH level, Abdominal pain in Patient Disposition: Home, Self-Care Instructions: Abdominal Pain in (ED) Additional Instructions: your blood work today confirmed your TSH is low and your free T4 Was normal. This can be normal in early . HOWEVER YOU NEED REPEAT BLOOD WORK WITH HER OBGYN IN 1-2 WEEKS, A REPEAT TSH, FREE T3 AND FREE T4 you have an appointment on 08/13. This is very important to go to. You also need to see endocrinology. We spoke with your OBGYN office they are going to put a referral in for you for endocrinology If you develop constant or worsening, chest pain, shortness of breath, lightheadedness /dizziness, headaches, near passing out episodes, abdominal pain, bleeding, discharge return to an emergency department immediately for evaluation. Prescriptions: No Action Thrivite Rx 29 mg iron- 1 mg tablet 1 tab PO DAILY pyridoxine (vitamin B6) 25 mg tablet 25 mg PO TID PRN (Reason: nausea) Qty: 30 0RF pyridoxine (vitamin B6) 25 mg tablet 25 mg PO TID PRN (Reason: nausea and vomiting) Qty: 30 0RF Rx Instructions: Take together with doxylamine doxylamine succinate 25 mg tablet 25 mg PO TID PRN (Reason: Nausea vomiting) Qty: 30 0RF nitrofurantoin monohyd/m-cryst [Macrobid] 100 mg capsule 100 mg PO Q12H 7 Days Qty: 14 0RF Rx Instructions: must administer with a meal/food doxycycline hyclate 100 mg capsule 100 mg PO BID 14 Days Qty: 27 0RF metronidazole 500 mg tablet 500 mg PO BID 14 Days Qty: 27 0RF cefuroxime axetil 250 mg tablet 250 mg PO BID Qty: 10 0RF ondansetron 4 mg tablet,disintegrating 4 mg PO Q8H PRN (Reason: nausea and vomiting) Qty: 10 0RF nitrofurantoin monohyd/m-cryst [Macrobid] 100 mg capsule 100 mg PO Q12H 7 Days Qty: 14 0RF Rx Instructions: must administer with a meal/food doxylamine-pyridoxine (vit B6) 10-10 mg tablet,delayed release (DR/EC) 1 tab PO BID Qty: 30 0RF metronidazole 500 mg tablet 500 mg PO BID Qty: 14 0RF Referrals: [facility] [Outside] [facility] [Outside] - 1 week Interventions: ED Discharge Assessment Last Done: 08/02/24 19:21 Discharge Date/Time: 08/02/24 19:22 Print Language: Mongolian
[2024-08-02 14:40] LABS: MANUAL DIFF FLAG NO
[2024-08-02 14:41] LABS: Basophils Percent Auto 0.4 % (0-2); Eosinophils Absolute Auto 0.1 X10*3/uL (0.0-0.4); Eosinophils Percent Auto 1.1 % (0-4); Hematocrit 36.2 % (37.0-47.0); Hemoglobin 12.8 g/dl (12.0-16.0); Imm Gran Abs Auto 0.01 X10*3/uL (0.00-0.03); Imm Gran Pct Auto 0.1 % (0.0-0.4); Lymphocytes Absolute Auto 2.8 X10*3/uL (1.2-4.9); Lymphocytes Percent Auto 37.4 % (20-40); Mean Corpuscular HGB Conc 35.4 g/dl (31.0-35.0); Mean Corpuscular Hemoglobin 31.4 pg (27.0-33.0); Mean Corpuscular Volume 88.9 fL (80.0-98.0); Mean Platelet Volume 9.9 fL (9.4-12.3); Monocytes Absolute Auto 0.7 X10*3/uL (0.1-1.2); Monocytes Percent Auto 8.9 % (2-11); Neutrophils Absolute Auto 3.9 x10*3/uL (2.0-8.3); Neutrophils Percent Auto 52.1 % (45-73); Platelet Count 200 X10*3/uL (160-400); Red Blood Count 4.07 X10*6/uL (4.20-5.50); Red Cell Distribution Width 12.1 % (11.0-16.0); White Blood Count 7.4 X10*3/uL (4.8-10.8)
[2024-08-02 15:13] LABS: Alanine Aminotransferase 10 U/L (0-31); Albumin Level 3.8 g/dL (3.5-5.0); Alkaline Phosphatase 49 U/L (39-117); Anion Gap 11 (12-20); Aspartate Amino Transferase 17 U/L (5-31); Bilirubin Direct 0.1 mg/dL (0.0-0.5); Bilirubin Total 0.3 mg/dL (0.0-1.0); Blood Urea Nitrogen 5 mg/dL (9-16); Calcium 8.6 mg/dL (8.4-10.2); Carbon Dioxide 26 mmol/L (22-29); Chloride 105 mmol/L (96-108); Creatinine Clr Calc Pharmacy 114.3; Estimated Glomerular Filt Rate > 60; Glucose Random 71 mg/dL (60-115); Potassium 4.1 mmol/L (3.3-5.1); Sodium 138 mmol/L (135-145); Total Protein 6.5 g/dL (6.5-8.0)
[2024-08-02 15:21] LABS: Troponin-I High Sensitivity < 2.7 ng/L (<3.5-17.0)
[2024-08-02 15:27] LABS: TSH reflex Free T4 0.05 uIU/mL (0.32-4.0)
[2024-08-02 15:35] LABS: Influenza A PCR NEGATIVE (Negative); Influenza B PCR NEGATIVE (Negative); Resp Syncy Virus RNA Qual PCR NEGATIVE (Negative); SARS COV2 PCR INHOUSE NEGATIVE (Negative)
[2024-08-02 16:06] LABS: Free T4 (Free Thyroxine) 1.02 ng/dL (0.71-1.85)
--- NOTE | 2024-08-02 16:12 | ECG_ITS ---
Test Reason : cp Blood Pressure : */* mmHG Vent. Rate : 66 BPM Atrial Rate : 66 BPM P-R Int : 150 ms QRS Dur : 76 ms QT Int : 418 ms P-R-T Axes : 57 69 34 degrees QTcB Int : 438 ms Normal sinus rhythm Normal ECG When compared with ECG of 29-Jun-2024 16:31, No significant change was found Referred By: Janina Patel Electronically Signed By: PO TEAGUE MD
--- NOTE | 2024-08-02 16:31 | PM.OBCN ---
OB Consult Note - [facility] Data Service Date: 08/02/24 Primary Care Provider: None Physician Narrative I was consulted on Darren Welsh who is a 19 year old @11 weeks gestation presenting to ED sent in by OBGYN for abnormal outpatient labs taken yesterday. Patient states her TSH was noted to be low, free T3 and T4 WNL. Reports generally feeling unwell for the past month with associated chills, palpitations, SOB, chest pain, shakiness, and mental fog. Reports some abdominal cramping over the past couple of days. Denies vaginal bleeding / discharge, dysuria /hematuria, nausea/vomiting. states vs was uncomplicated ultrasound done today showed the following: IMPRESSION: 1. Single intrauterine gestation with ultrasound gestational age of 11 weeks and 4 days +/- 4 days. 2. Estimated date of delivery is 02/17/2025 +/- 4 days OB PMFSH Past Medical History Medical History PTSD (post-traumatic stress disorder) Prolonged QT interval Depression ADHD Surgical History Surgical History No pertinent past surgical history Social History Social History Alcohol intake: never Patient Tobacco Use Status: Current everyday Tobacco user Substance Use Type: Marijuana Advance Directives: No Advance Directives Information Provided: No Meds Allergies Allergy/AdvReac Type Severity Reaction Status Date / Time broccoli [BROCCOLI] Allergy Severe ANAPHYLAXIS Verified 08/02/24 14:19 penicillin V Allergy Mild Hives Verified 08/02/24 14:19 Penicillins [PENICILLINS] Allergy Mild RASH Verified 08/02/24 14:19 amoxicillin Allergy Unknown Unknown Verified 08/02/24 14:19 Home Medications ?Medication ?Instructions ?Recorded ?Confirmed ?Last Taken ?Type vitamin 1 tab PO DAILY 11/05/21 11/05/21 Unknown History no.76-iron,carbonyl 29 mg iron-folic acid 1 mg tablet (Thrivite Rx) OB Physical Exam Physical Exam Additional Comments: Reported by NETTIE Garcia in the emergency room as the following: Abs normal , soft to palpation, nontender, no guarding and not rigid OB Consult Results Labs 08/02/24 14:34 08/02/24 14:34 Labs: Short CBC 08/02/24 Range/Units 14:34 WBC 7.4 (4.8-10.8) X10*3/uL Hgb 12.8 (12.0-16.0) g/dl Hct 36.2 L (37.0-47.0) % Plt Count 200 (160-400) X10*3/uL BMP 08/02/24 14:34 Sodium 138 Potassium 4.1 Chloride 105 Carbon Dioxide 26 BUN 5 L Creatinine 0.70 Calcium 8.6 Liver Function 08/02/24 Range/Units 14:34 Total Bilirubin 0.3 (0.0-1.0) mg/dL Direct Bilirubin 0.1 (0.0-0.5) mg/dL AST 17 (5-31) U/L ALT 10 (0-31) U/L Alkaline Phosphatase 49 (39-117) U/L Albumin 3.8 (3.5-5.0) g/dL OB - CN: A/P Assessment and Plan (1) Low TSH level: Status: Acute Assessment and Plan: Discussed with NETTIE Garcia that TSH decreases in early because of hCG during the first 12 weeks of gestation. Recommended for the patient to follow-up with the OBGYN within few days and repeat TSH with free T3 and T4 to confirm normalization of TSH. signs signs and symptoms of hyperthyroidism to be given to the patient, SAB warnings, vitamin tablet p.o. q.d. instructions to be given to patient to come back in case of vaginal bleeding pelvic pain nausea or vomiting or any other concerns. I spent a total of 20 minutes reviewing the chart, communicating with the emergency room provider and documenting in the medical record. Time Spent With Patient Time: Total time managing care of this patient today ____ minutes.
[2024-08-02 17:46] LABS: Magnesium 1.8 mg/dL (1.6-2.6)
[2024-08-02 18:10] VITALS: BP 101/59; PULSE 78; RESP 16; TEMP 36.7; O2SAT 98
[2024-08-02 18:14] LABS: Appearance Urine Clear; Color Urine Yellow; Glucose Urine UA Negative (Negative); Leukocyte Esterase Urine Trace (Negative); Nitrite Urine Negative (Negative); Specific Gravity - Urine <= 1.005 (1.005-1.025); UMIC TRIGGER UACC YES; Urine Blood Negative (Negative); Urine Ketones Negative (Negative); Urine Protein Negative (Neg-Trace)
[2024-08-02 18:33] LABS: Bacteria Urine Trace (None Seen); Hyaline Casts Urine 0-2 /LPF (0-2); RBC Urine 0-2 /HPF (0-2); WBC Urine 0-5 /HPF (0-5)
--- OUTSIDE RECORDS SUMMARY | 2024-08-02 18:57 | XMS_ITS | Encounter Summary ---
Author Organization [facility] Address [address] [place] [phone] Phone Care Team Providers Care Chief Deputy Sheriff Name Role Phone Rosmery Moore MD Primary Care Provider [phone] Encounter Details Date Type Department Care Team (Late st Contact Info) Description 01/30/2016 [place] [facility] [place] [address] [place], [place] [phone] Family Medicine, Physician [address] [place] [address] Social History Tobacco Use Types Packs/Day Years [...] on filedocumented in this encounter Care Teams Chief Deputy Sheriff Relationship Specialty Start Date End Date Rosmery Moore MD [address] [place] [address] SELVIN Villanueva [address] PCP - General 01/07/17 07/28/22 documented as of this encounter
--- OUTSIDE RECORDS SUMMARY | 2024-08-02 18:57 | XMS_ITS | Clinical Summary ---
Author Organization [facility] Address [address] [place] [phone] Phone Care Team Providers Care Log Hauler Name Role Phone Unavailable Primary Care Provider [...] Overview (09/28/2019): Humberto Enrike is calling from [facility] regarding an active 51A. Update given. RODGER [...] (04/16/2019): Pt reports Albuterol nebs used in guest relations receptionist for viral induced wheeze. 04/09/19 visit for [...] However unsure if this will be needed manager long term care So recommended decrease to 2 puffs once [...] decrease; if continues, can refer to adol hotel or motel cleaning supervisor Drug-induced constipation 08/26/2017 Assessment & Plan (02/21/2019 [...] (02/08/2019 2:45 PM EDT): Has therapist through [facility] and has appt with med provider on 03/09 at [facility] Needs a bridge of medication for the [...] meds Has appointment with [place] at [facility] first week of October Will call when they need refills of her meds before that appointment Assessment & Plan (09/20/2017 1:46 PM EDT): [employer]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 Procedure Name Priority Date/Time Associated Diagnosis Comments CHLAMYDIA AND GONORRHEA, AMPLIFIED Routine 07/17/2019 6:05 PM EST High risk sexual behavior, unspecified type from Last 3 Months or Most Recently Relevant to Health Maintenance Results * Due to [facility] law, this organization might not be sharing sensitive test results. * Chlamydia and Gonorrhoea, Amplified (07/17/2019 6:05 PM EST) Chlamydia Trachomatis, DNA Probe NEGATIVE (NEG) [facility] Comment: No Chlamydia Trachomatis RNA detected in this patient's sample ? (REFERENCE RANGE/NORMAL VALUE: NOT DETECTED) ? Note: This test uses manager quality compliance- mediated amplification method to detect rRNA from C. Trachomatis URINE GC AMP PROBE NEGATIVE (NEG) [facility] Comment: No Neisseria Gonorrhoeae RNA detected in this patient's sample ? (REFERENCE RANGE/NORMAL VALUE: NOT DETECTED) ? NOTE: This test uses manager quality compliance-mediated amplification method to detect rRNA from N.Gonorrhoeae. [...] without risk of sexual abuse. Consult the [facility] if needed. Contact phone number . Therapeutic failure or success cannot be determined with the Aptima Combo2 assay since nucleic acid may persist following appropriate antimicrobial therapy. The Centers for Disease Control and Prevention (CDC) recommends confirmatory retesting using culture or a different nucleic acid amplification test when positive results occur, if indicated. Testing performed or reported by [facility], a Service of [facility], [address] [place] [address] Jh Nichole MD, Software Requirements Engineer Urine 07/17/2019 6:05 PM EST 07/17/2019 9:16 PM EST us Rosmery Moore MD LAB MICROBIOLOGY - GENERAL ORD ERABLES Final Result [facility] from Last 3 Months or Most Recently Relevant to Health Maintenance [place] [address] NON PCC
--- OUTSIDE RECORDS SUMMARY | 2024-08-02 18:57 | XMS_ITS | Encounter Summary ---
Author Organization [facility] Address [address] [place] [address] Phone Care Team Providers Care Solar Photovoltaic Designer Name Role Phone Rosmery Moore MD Primary Care Provider [phone] Encounter Details Date Type Department Care Team (Late st Contact Info) Description 06/28/2016 Documentation [facility] Family Medicine [address], [place] [phone] Family Medicine, Physician [address] [place] [address] Social History Tobacco Use Types Packs/Day Years [...] on filedocumented in this encounter Care Teams Solar Photovoltaic Designer Relationship Specialty Start Date End Date Rosmery Moore MD [address] [place] [address] SELVIN Villanueva [address] PCP - General 01/07/17 07/28/22 documented as of this encounter
--- OUTSIDE RECORDS SUMMARY | 2024-08-02 18:57 | XMS_ITS | Encounter Summary ---
Author Organization [facility] Address [address] [place] [phone] Phone Care Team Providers Care Dairy Manager Name Role Phone Rosmery Moore MD Primary Care Provider [phone] Encounter Details Date Type Department Care Team (Late st Contact Info) Description 12/16/2015 Documentation [facility] [place] [address] [place], [place] [phone] Family Medicine, Physician [address] [place] [address] Social History Tobacco Use Types Packs/Day Years [...] on filedocumented in this encounter Care Teams Dairy Manager Relationship Specialty Start Date End Date Rosmery Moore MD [address] [place] [address] SELVIN Villanueva [address] PCP - General 01/07/17 07/28/22 documented as of this encounter
--- OUTSIDE RECORDS SUMMARY | 2024-08-02 18:57 | XMS_ITS | Encounter Summary ---
Author Organization [facility] Address [address] [place] [id number] Phone Care Team Providers Care Pbx Wire Chief Name Role Phone Rosmery Moore MD Primary Care Provider Encounter Details Date Type Department Care Team (Late st Contact Info) Description 09/03/2016 Documentation [facility] [place] [address] [place], [place] [phone] Family Medicine, Physician [address] [place] [address] Social History Tobacco Use Types Packs/Day Years [...] on filedocumented in this encounter Care Teams Pbx Wire Chief Relationship Specialty Start Date End Date Rosmery Moore MD [address] [place] [address] SELVIN Villanueva [id number] PCP - General 01/07/17 07/28/22 documented as of this encounter
--- OUTSIDE RECORDS SUMMARY | 2024-08-02 18:57 | XMS_ITS | Encounter Summary ---
Author Organization [facility] Address [address] [place] [id number] Phone Care Team Providers Care Printed Circuit Designer Name Role Phone Rosmery Moore MD Primary Care Provider [phone] Encounter Details Date Type Department Care Team (Late st Contact Info) Description 06/29/2016 Documentation [facility] [place] [address], [place] [phone] Family Medicine, Physician [address] [place] [address] Social History Tobacco Use Types Packs/Day Years [...] on filedocumented in this encounter Care Teams Printed Circuit Designer Relationship Specialty Start Date End Date Rosmery Moore MD [address] [place] [address] SELVIN Villanueva [id number] PCP - General 01/07/17 07/28/22 documented as of this encounter
--- OUTSIDE RECORDS SUMMARY | 2024-08-02 18:57 | XMS_ITS | Encounter Summary ---
Author Organization [facility] Address [address] [place] [address] Phone Care Team Providers Care Lime Kiln Operator Name Role Phone Rosmery Moore MD Primary Care Provider [phone] Encounter Details Date Type Department Care Team (Late st Contact Info) Description 05/09/2013 Documentation [facility] [place] Medicine [address] [place], [place] [phone] Family Medicine, Physician [address] [place] [address] Social History Tobacco Use Types Packs/Day Years [...] on filedocumented in this encounter Care Teams Lime Kiln Operator Relationship Specialty Start Date End Date Rosmery Moore MD [address] [place] [address] SELVIN Villanueva [address] PCP - General 01/07/17 07/28/22 documented as of this encounter
--- OUTSIDE RECORDS SUMMARY | 2024-08-02 18:57 | XMS_ITS | Clinical Summary ---
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 [facility] Blood Venous blood specimen / Unknown Venipuncture / Unknown 08/01/2024 1:35 PM EST 08/01/2024 1:35 PM EST Sandy Kiran MD LAB BLOOD ORDERABLES Final Result Performing Organization Address [facility] de Phone Number [facility] [address] [place] [address], [place] [phone] * Thyroxine free (08/01/2024 1:35 PM EST) [facility] Free T4 1.27 0.70 - 1.80 ng/dL LAB CHEMISTRY METHOD 08/01/2024 3:03 PM EST [facility] Blood Venous blood specimen / Unknown Venipuncture / Unknown 08/01/2024 1:35 PM EST 08/01/2024 1:35 PM EST Sandy Kiran MD LAB BLOOD ORDERABLES Final Result Performing Organization Address [facility] Co de Phone Number [facility] [address] [place] [address], [place] [phone] * Varicella zoster antibody IgG (08/01/2024 1:09 PM EST) [facility] Varicella IgG Positive Positive LAB CHEMISTRY METHOD 08/01/2024 3:15 PM EST [facility] Varicella Zoster IgG 6.94 >=1.00 S/CO LAB CHEMISTRY METHOD 08/01/2024 3:15 PM EST [facility] Blood Venous blood specimen / Unknown Venipuncture / Unknown 08/01/2024 1:09 PM EST 08/01/2024 1:09 PM EST Narrative [facility] - 08/01/2024 3:15 PM EST Interpretation >= 1.00 S/CO is considered to be consistent with Immunity us Sandy Kiran MD LAB BLOOD ORDERABLES Final Result [facility] [address] [place] [address], * Drug abuse screen expanded with reflex confirmation, urine (08/01/2024 12:58 PM EST) Amphetamine Screen, Ur Negative Negative LAB CHEMISTRY METHOD 08/01/2024 7:43 PM EST [facility] Comment:Certain OTC medicati ons containing ephedrine, phenylephrine, pseudoephedrine and phenylpropanolamine can cause false positive results. Barbiturate Screen, Ur Negative Negative LAB CHEMISTRY METHOD 08/01/2024 7:43 PM EST [facility] Benzodiazepine Screen, Ur Negative Negative LAB CHEMISTRY METHOD 08/01/2024 7:43 PM [facility] Cocaine Screen, Ur Negative Negative LAB CHEMISTRY METHOD 08/01/2024 7:43 PM [facility] Opiate Screen, Ur Negative Negative LAB CHEMISTRY METHOD 08/01/2024 7:43 PM [facility] Cannabinoid (THC) Screen, Ur Negative Negative LAB CHEMISTRY METHOD 08/01/2024 7:43 PM [facility] Comment:Specimens from patie nts taking pantoprazole sodium (Protonix) have been shown to produce false positive results. Fentanyl, Ur Negative Negative LAB CHEMISTRY METHOD 08/01/2024 7:43 PM EST [facility] Oxycodone Screen, Ur Negative Negative LAB CHEMISTRY METHOD 08/01/2024 7:43 PM [facility] Urine Urine specimen obtained by clean catch procedure / Unknown Non-blood Collection / Unknown 08/01/2024 12:58 PM EST 08/01/2024 12:58 PM EST [facility] - 08/01/2024 7:43 PM EST Assay cutoffs: Amphetamines ? 1000 ng/mL Barbiturates ?200 ng/mL Benzodiazepines ?? 200 ng/mL Cocaine ? 300 ng/mL Fentanyl ?1 ng/mL Opiates ? 300 ng/mL Oxycodone ? 100 ng/mL THC ?50 ng/mL Semi-quantitative assay for screening purposes only. Unconfirmed screening result should not be used for non-medical purposes. *POSITIVE RESULTS ARE AUTOMATICALLY SENT FOR ALTERNATE METHOD CONFIRMATION* Sandy Kiran MD LAB URINE ORDERABLES Final Result Performing Organization Address [facility] de Phone Number [facility] [address] [place] [address], [place] [phone] * Type and screen (08/01/2024 12:44 PM EST) Pathologist [facility] 08/01/2024 3:33 PM EST [facility] Rh Type Positive 08/01/2024 3:33 PM EST [facility] Antibody Screen Negative 08/01/2024 3:33 PM EST [facility] Blood Venous blood specimen / Unknown Venipuncture / Unknown 08/01/2024 12:44 PM EST 08/01/2024 12:44 PM EST Sandy Kiran MD LAB BLOOD BANK TEST ORDERAB LES Final Result Performing Organization Address [facility] Co de Phone Number [facility] [address] [place] [address], [place] [phone] * CBC auto differential (08/01/2024 12:43 PM EST) Pathologist [facility] WBC 7.6 4.8 - 10.8 K/mcL LAB HEMETOLOGY METHOD 08/01/2024 2:31 PM EST [facility] RBC 4.40 3.80 - 4.80 M/mcL LAB HEMETOLOGY METHOD 08/01/2024 2:31 PM [facility] Hemoglobin 13.8 11.5 - 16.0 g/dL LAB HEMETOLOGY METHOD 08/01/2024 2:31 PM [facility] Hematocrit 39.9 35.0 - 47.0 % LAB HEMETOLOGY METHOD 08/01/2024 2:31 PM [facility] MCV 90.3 79.0 - 98.0 FL LAB HEMETOLOGY METHOD 08/01/2024 2:31 PM [facility] MCH 31.2 27.0 - 32.0 pcg LAB HEMETOLOGY METHOD 08/01/2024 2:31 PM [facility] MCHC 34.6 32.0 - 37.0 g/dL LAB HEMETOLOGY METHOD 08/01/2024 2:31 PM [facility] RDW 12.2 11.0 - 15.0 % LAB HEMETOLOGY METHOD 08/01/2024 2:31 PM [facility] Platelets 226 130 - 400 K/mcL LAB HEMETOLOGY METHOD 08/01/2024 2:31 PM [facility] MPV 10.9 7.0 - 11.0 FL LAB HEMETOLOGY METHOD 08/01/2024 2:31 PM [facility] NRBC 0.0 <1.0 % LAB HEMETOLOGY METHOD 08/01/2024 2:31 PM [facility] NRBC Absolute 0.00 <0.10 K/mcL LAB HEMETOLOGY METHOD 08/01/2024 2:31 PM [facility] Neutrophils Relative 49.4 % LAB HEMETOLOGY METHOD 08/01/2024 2:31 PM [facility] Lymphocytes Relative 41.9 % LAB HEMETOLOGY METHOD 08/01/2024 2:31 PM [facility] Monocytes Relative 6.8 % LAB HEMETOLOGY METHOD 08/01/2024 2:31 PM [facility] Eosinophils Relative 1.2 % LAB HEMETOLOGY METHOD 08/01/2024 2:31 PM [facility] Basophils Relative 0.4 % LAB HEMETOLOGY METHOD 08/01/2024 2:31 PM [facility] Immature Granulocytes Relative 0.3 % LAB HEMETOLOGY METHOD 08/01/2024 2:31 PM [facility] Neutrophils Absolute 3.77 1.50 - 7.00 K/mcL LAB HEMETOLOGY METHOD 08/01/2024 2:31 PM [facility] Lymphocytes Absolute 3.20 1.00 - 5.00 K/mcL LAB HEMETOLOGY METHOD 08/01/2024 2:31 PM [facility] Monocytes Absolute 0.52 0.20 - 1.00 K/mcL LAB HEMETOLOGY METHOD 08/01/2024 2:31 PM [facility] Eosinophils Absolute 0.09 0.00 - 0.50 K/mcL LAB HEMETOLOGY METHOD 08/01/2024 2:31 PM [facility] Basophils Absolute 0.03 0.00 - 0.20 K/mcL LAB HEMETOLOGY METHOD 08/01/2024 2:31 PM [facility] Immature Granulocytes Absolute 0.02 0.00 - 0.03 K/mcL LAB HEMETOLOGY METHOD 08/01/2024 2:31 PM [facility] Blood Venous blood specimen / Unknown 08/01/2024 12:43 PM EST 08/01/2024 12:43 PM EST Sandy Kiran MD LAB BLOOD ORDERABLES Final Result [facility] [address] [place] [address], * HCG, quantitative (06/28/2024 2:39 PM EST) Only the most recent of3 resultswithin the time period is included. hCG Quant 25,803 mIU/mL LAB CHEMISTRY METHOD 06/28/2024 5:13 PM EST [facility]) [facility] Comment:Results verified by repeat testing Blood Venous blood specimen / Unknown Venipuncture / Unknown 06/28/2024 2:39 PM EST 06/28/2024 2:39 PM EST Narrative [facility] - 06/28/2024 5:13 PM [...] LAB BLOOD ORDERABLES Final Res ult [facility] ([facility] [address] [place] [address], * (ABNORMAL) POC , urine manually resulted (06/19/2024 11:35 AM EST) HCG, Ur POC Positive(A ) Negative POC hCG Int QC Pass? Yes Yes Urine Urine specimen obtained by clean catch procedure / Unknown 06/19/2024 11:35 AM EST Sandy Kiran MD POINT OF CARE TEST ENTER/ED IT ORDERABLES Final Result * Gonorrhea/Chlamydia Screening (02/15/2023) Gonorrhea/Chla mydia Screening abstracted Historical Provider HEALTH MAINTENANCE Final Result * Pap Smear (04/29/2022) Pap smear negative, abstracted Historical Provider HEALTH MAINTENANCE Final Result from Last 3 Months or Most Recently Relevant to Health Maintenance Insurance [facility] MEDICAID ADVANTAGE Care Teams Band Nailer Relationship Specialty Start Date End Date Gabrielle Moore MD [address] [place] [address] [place] [address] PCP - General Pediatrics 05/09/17
--- OUTSIDE RECORDS SUMMARY | 2024-08-02 18:57 | XMS_ITS | Encounter Summary ---
Author Organization [facility] Address [address] [place] [address] Phone Care Team Providers Care Carpenter'S Assistant Name Role Phone Rosmery Moore MD Primary Care Provider [phone] Encounter Details Date Type Department Care Team (Late st Contact Info) Description 04/05/2013 Documentation [facility] [place] [facility] [address] [place], [place] [phone] Family Medicine, Physician [address] [place] [address] Social History Tobacco Use Types Packs/Day Years [...] on filedocumented in this encounter Care Teams Carpenter'S Assistant Relationship Specialty Start Date End Date Rosmery Moore MD [address] [place] [address] [place] [address] PCP - General 01/07/17 07/28/22 documented as of this encounter
--- OUTSIDE RECORDS SUMMARY | 2024-08-02 18:58 | XMS_ITS | Encounter Summary ---
Author Organization [facility] Address [address] [place] [address] Phone Care Team Providers Care Metal Cleaner Name Role Phone Rosmery Moore MD Primary Care Provider [phone] Encounter Details Date Type Department Care Team (Late st Contact Info) Description 10/30/2012 Documentation [facility] [place] [address] [place], [place] [phone] Family Medicine, Physician [address] [place] [address] Social History Tobacco Use Types Packs/Day Years [...] on filedocumented in this encounter Care Teams Metal Cleaner Relationship Specialty Start Date End Date Rosmery Moore MD [address] [place] [address] [place] [address] PCP - General 01/07/17 07/28/22 documented as of this encounter
--- OUTSIDE RECORDS SUMMARY | 2024-08-02 18:58 | XMS_ITS | Clinical Summary ---
Author Organization [facility] Address [address] [place] [address] Care Team Providers Care Eye Care Professional Name Role Phone Rosmery Moore MD Primary [...] age to complete this topic Care Teams Eye Care Professional Relationship Specialty Start Date End Date Rosmery Moore MD [address] [place] [address] [address] [place] [phone] PCP - General 05/20/22
--- OUTSIDE RECORDS SUMMARY | 2024-08-02 18:58 | XMS_ITS | Encounter Summary ---
Author Organization [facility] [place] [address] Care Team Providers Care Thread Grinder Tool Name Role Phone Gabrielle Moore MD Primary Care Provider [phone] Reason for Referral * Imaging (Emergency) - Pending Review Specialty Diagnoses / Procedures Referred By Contac t Referred To Contact Radiology Diagnoses care, subsequent in first trimester Procedures US OB Less 14 Wks Single or First Gestation Sandy Kiran MD [address] [place] [address] Phone: tel: fax: [address] Phone: tel: Referral ID Status Reason Start Date Expiration Date V isits Requested Visits Authorized [id number] Pending Review 08/01/2024 08/01/2025 1 1 Reason for Visit * Imaging (Emergency) - Pending Review Specialty Diagnoses / Procedures Referred By Contac t Referred To Contact Radiology Diagnoses care, subsequent in first trimester Procedures US OB Less 14 Wks Single or First Gestation Sandy Kiran MD [address] [place] [address] Phone: tel: fax: [address] Phone: tel: Referral ID Status Reason Start Date Expiration Date V isits Requested Visits Authorized [id number] Pending Review 08/01/2024 08/01/2025 1 1 Encounter Details Date Type Department Care Team (Latest Contact Info) Description 08/01/2024 1:20 PM EST - 08/01/2024 11:59 PM EST Hospital Encounter Radiology Department - [address] [phone] care, subsequent in first trimester Discharge Disposition: Home or Self Care Social [...] this encounter Medications at Time of Discharge nitrofurantoin, macrocrystal-mono hydrate, (MACROBID) 100 mg capsuleIndication s:bacterial urinary tract infection Take 1 capsule (100 mg total) by mouth 2 (two) times a day. PNV no.95/ferrous fum/folic ac ( ORAL) Take 1 Tablet by mouth daily. 01/22/2022 PNV,calcium 01-ukeu-bsefb acid (M-Ced Plus) 27 mg iron- 1 mg tablet Take 1 tablet by mouth 1 (one) time each day. 90 tablet 3 06/19/2024 documented as of this encounter Discharge Disposition Disposition Code Departure Means Destination Home or Self Care documented in this encounter Plan of Treatment Upcoming Encounters Date Type Department Care Team (Late st Contact Info) Description 08/13/2024 11:00 AM EDT Initial Obstetrics and Gynecology - [address] [phone] Sandy Kiran MD [address] [place], [place] documented as of this encounter Procedures Procedure Name Priority Date/Time Associated Diagnosis Comments US OB LESS 14 WKS SINGLE OR FIRST GESTATION STAT 08/01/2024 1:49 PM EST care, subsequent in first trimester documented in this encounter Results * US OB Less 14 Wks Single or First Gestation (08/01/2024 1:49 PM EST) Anatomical Region Laterality Modality Body Ultrasound 08/01/2024 [...] Signed Date: 08/01/2024 14:08 ET Workstation ID: [id number] Transcribed By: Self Edit Transcribed Date: 08/01/2024 [...] Signed Date: 08/01/2024 14:08 ET Workstation ID: [id number] Transcribed By: Self Edit Transcribed Date: 08/01/2024 14:05 ET us Sandy Kiran MD IMG OB US PROCEDURES Final Result documented in this encounter Visit Diagnoses Diagnosis care, subsequent in first trimester documented in this encounter Care Teams Thread Grinder Tool Relationship Specialty Start Date End Date Gabrielle Moore MD [address] [place] [address] [place] [address] PCP - General Pediatrics 05/09/17 documented as of this encounter
--- OUTSIDE RECORDS SUMMARY | 2024-08-02 18:58 | XMS_ITS | Encounter Summary ---
Author Organization [facility] Address [address] [place] [address] Care Team Providers Care Intelligence Applications Name Role Phone Gabrielle Moore MD Primary Care Provider [phone] Reason for Visit * Reason Onset Date Comments Problem 08/02/2024 Encounter Details Date Type Department Care Team ([facility] st Contact Info) Description 08/02/2024 Telephone Obstetrics and Gynecology - [address] [phone] Sandy Kiran MD [address] [place], [place] Problem Social History Tobacco Use Types Packs/Day Years [...] as of this encounter Progress Notes * Kelly Eugene RN - 08/02/2024 11:41 AM EST BONNIE Hoffman reviewed pts symptoms of disorientation and extreme tiredness and dizziness. Advised to seen in ED for evaluation. Pt called and aware to tell ED she has a critically low lab value and herprovider sent her to be seen. Pt understands. * Kelly Eugene RN - 08/02/2024 10:52 AM EST Spoke with patient , pt had intake 08/01/24 and labs drawn. Also u/s for c/o spotting. ANJELICA 02/17/25 . Pt woke up this am very disoriented and tired. [place] not feel well. 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 States Hx low thyroid in 2022 never followed up with Endocrinology. Component Ref Range & Units 1 d ago TSH 0.40 - 4.00 mcIU/mL <0.05 Low Provider messaged with critical lab value * Dorota Cavanaugh - 08/02/2024 10:44 AM EST Pt calling, states she woke up today feeling dizzy and confused , would like to further discuss. Pls advise documented in this encounter Plan of Treatment Upcoming Encounters Date Type Department Care Team (Late st Contact Info) Description 08/13/2024 11:00 AM EDT Initial Obstetrics and Gynecology - [address] [phone] Sandy Kiran MD [address] [place], [place] documented as of this encounter Visit Diagnoses Not on filedocumented in this encounter Care Teams Intelligence Applications Relationship Specialty Start Date End Date Gabrielle Moore MD [address] [place] [address] [place] [address] PCP - General Pediatrics 05/09/17 documented as of this encounter
--- OUTSIDE RECORDS SUMMARY | 2024-08-02 18:58 | XMS_ITS | Encounter Summary ---
Author Organization [facility] Address [address] [place] [address] Phone Care Team Providers Care Green Chain Offbearer Name Role Phone Rosmery Moore MD Primary Care Provider [phone] Encounter Details Date Type Department Care Team (Late st Contact Info) Description 01/13/2017 Conversion Encounter [facility] - [address] [address] Social History Tobacco Use Types Packs/Day Years [...] on filedocumented in this encounter Care Teams Green Chain Offbearer Relationship Specialty Start Date End Date Rosmery Moore MD [address] [place] [address] PCP - General 01/07/17 07/28/22 documented as of this encounter
--- OUTSIDE RECORDS SUMMARY | 2024-08-02 18:58 | XMS_ITS | Encounter Summary ---
Author Organization [facility] Address [address] [place] [address] Phone Care Team Providers Care Service Station Equipment Mechanic Name Role Phone Rosmery Moore MD Primary Care Provider [phone] Encounter Details Date Type Department Care Team (Late st Contact Info) Description 10/14/2016 Documentation [facility] [place] [address], [place] [phone] Family Medicine, Physician [address] [place] [address] Social History Tobacco Use Types Packs/Day Years [...] on filedocumented in this encounter Care Teams Service Station Equipment Mechanic Relationship Specialty Start Date End Date Rosmery Moore MD [address] [place] [address] [place] [address] PCP - General 01/07/17 07/28/22 documented as of this encounter
--- OUTSIDE RECORDS SUMMARY | 2024-08-02 18:58 | XMS_ITS | Encounter Summary ---
Author Organization [facility] Address [address] [place] [address] Care Team Providers Care Lap Maker Name Role Phone Gabrielle Moore MD Primary Care Provider [phone] Reason for Referral * Imaging (Routine) - Pending Review Specialty Diagnoses / Procedures Referred By Contac t Referred To Contact Radiology Diagnoses care, subsequent in first trimester Procedures US OB Less 14 Wks Nuchal Measurement Sandy Kiran MD [address] [place] [address] Phone: tel: fax: [address] Phone: tel: Referral ID Status Reason Start Date Expiration Date V isits Requested Visits Authorized [id number] Pending Review 08/01/2024 08/01/2025 1 1 * Imaging (Emergency) - Pending Review Specialty Diagnoses / Procedures Referred By Contac t Referred To Contact Radiology Diagnoses care, subsequent in first trimester Procedures US OB Less 14 Wks Single or First Gestation Sandy iKran MD [address] [place] [address] Phone: tel: fax: [address] Phone: tel: Referral ID Status Reason Start Date Expiration Date V isits Requested Visits Authorized [id number] Pending Review 08/01/2024 08/01/2025 1 1 Reason for Visit * Reason Comments Ob Work Up Encounter Details Date Type Department Care Team (Latest Contact Info) Description 08/01/2024 10:00 AM EST Clinical Support Obstetrics and Gynecology [address] [address] care, subsequent in first trimester (Primary Dx); Cystic fibrosis carrier; Herpes simplex type 2 (HSV-2) infection affecting , antepartum; Attention deficit hyperactivity disorder (ADHD), unspecified ADHD type; Depression during , antepartum Social History Tobacco Use Types Packs/Day Years [...] Sign Reading Time Taken Comments Blood Pressure - - Pulse - - Temperature - - Respiratory Rate - - Oxygen Saturation - - Inhaled Oxygen Concentration - - Weight 58.5 kg (129 lb) 08/01/2024 10:13 AM EST Height - - Body Mass Index 24.37 06/19/2024 11:16 AM EST documented in this encounter Progress Notes * Christen Castaneda RN - 08/01/2024 10:00 AM EST Darren Welsh is a 19 y.o. old female at 10w3d. This is [place]. The patient feels happy about the . The FOB is supportive. Hisname is Annalisa Jones. This is his first child. Her other son, Janel, is with another FOB. He has custody. She reports she had very bad depression with her first , had an openDCF case, but it has since been closed. Patient's last menstrual period was No LMP recorded (lmp unknown). Patient is . (exact date)., which would make her currently 10w3d with an Estimated Date of Delivery: 02/24/25. She is uncertain of her date. An ultrasound has already been performed on 07/10/2024, ANJELICA assigned by 1st trimesterultrasound Patient has significant history of: adhd, child SA, HSV,Depression, Asthma, ,Cystic fibrosis carrier . This is a new FOB. He will submit a [employer] kit for testing to see if he [...] to the above questions, is this for rastafari reasons? No Do you know what your [...] nausea and/or vomiting, pain on urination, or vaginaldischarge or vaginal bleeding? YES OB Infection History: [...] Welsh has also been informed of the robotic welder provider recommendation for first trimester nuchal lucency [...] Genetic Testing has been reviewed and the [employer] information sheet has been provided to the [...] Christen Castaneda RN 08/01/24 10:47 AM EST documented in this encounter Plan of Treatment Upcoming Encounters Date Type Department Care Team (Late st Contact Info) Description 08/13/2024 11:00 AM EDT Initial Obstetrics and Gynecology [address] [phone] Sandy Kiran MD [address] [place], [place] Pending Results Name Type Priority Associated Diagnoses Date /Time Culture urine Microbiology Routine care, subsequent in first trimester 08/01/2024 12:58 PM EST Scheduled Orders Name Type Priority Associated Diagnoses Orde r Schedule US OB Less 14 Wks Nuchal Measurement Imaging Routine care, subsequent in first trimester Expected: 08/01/2024, Expires: 08/01/2025 documented as of this encounter Results * [...] Signed Date: 08/01/2024 14:08 ET Workstation ID: [id number] Transcribed By: Self Edit Transcribed Date: 08/01/2024 [...] Signed Date: 08/01/2024 14:08 ET Workstation ID: [id number] Transcribed By: Self Edit Transcribed Date: 08/01/2024 14:05 ET Sandy Kiran MD IMG OB US PROCEDURES Final Result * (ABNORMAL) Thyroid stimulating hormone (08/01/2024 1:35 PM EST) [facility] TSH <0.05(L) 0.40 - 4.00 mcIU/mL LAB CHEMISTRY METHOD 08/01/2024 3:05 PM EST [facility] Blood Venous blood specimen / Unknown Venipuncture / Unknown 08/01/2024 1:35 PM EST 08/01/2024 1:35 PM EST us Sandy Kiran MD LAB BLOOD ORDERABLES Final Result [facility] [address] [place] [address], [place] [phone] * Thyroxine free (08/01/2024 1:35 PM EST) Pathologist [facility] Free T4 1.27 0.70 - 1.80 ng/dL LAB CHEMISTRY METHOD 08/01/2024 3:03 PM EST [facility] Blood Venous blood specimen / Unknown Venipuncture / Unknown 08/01/2024 1:35 PM EST 08/01/2024 1:35 PM EST us Sandy Kiran MD LAB BLOOD ORDERABLES Final Result Performing Organization Address [facility] Co de Phone Number [facility] [address] [place] [address], [place] [phone] * Triiodothyronine total (08/01/2024 1:35 PM EST) [facility] T3, Total 133.98 60.00 - 181.00 ng/dL LAB CHEMISTRY METHOD 08/01/2024 3:04 PM EST [facility] Blood Venous blood specimen / Unknown Venipuncture / Unknown 08/01/2024 1:35 PM EST 08/01/2024 1:35 PM EST us Sandy Kiran MD LAB BLOOD ORDERABLES Final Result Performing Organization Address [facility] de Phone Number [facility] [address] [place] [address], [place] [phone] * Treponema pallidum antibody with reflex to RPR and particle agglutination (08/01/2024 1:35 PM EST) [facility] T. Pallidum Antibodies Negative Negative LAB CHEMISTRY METHOD 08/01/2024 3:16 PM EST [facility] Blood Venous blood specimen / Unknown Venipuncture / Unknown 08/01/2024 1:35 PM EST 08/01/2024 1:35 PM EST us Sandy Kiran MD LAB BLOOD ORDERABLES Final Result Performing Organization Address City/[facility]/ZIP Co de Phone Number [facility] [address] [place] [address], [place] [phone] * Rubella antibody IgG (08/01/2024 1:35 PM EST) [facility] Rubella IgG Quant 23.8 >=10.0 I Unit/mL LAB CHEMISTRY METHOD 08/01/2024 3:22 PM EST [facility] Rubella IgG Antibody Interp Positive Positive LAB CHEMISTRY METHOD 08/01/2024 3:22 PM EST [facility] Blood Venous blood specimen / Unknown Venipuncture / Unknown 08/01/2024 1:35 PM EST 08/01/2024 1:35 PM EST us Sandy Kiran MD LAB BLOOD ORDERABLES Final Result Performing Organization Address [facility]/ZIP Co de Phone Number [facility] [address] [place] [address], * HIV 1,2 antibody, p24 antigen with reflex to differentiation (08/01/2024 1:35 PM EST) [facility] HIV Combo AB/AG Negative Negative LAB CHEMISTRY METHOD 08/01/2024 3:45 PM EST [facility] Blood Venous blood specimen / Unknown Venipuncture / Unknown 08/01/2024 1:35 PM EST 08/01/2024 1:35 PM EST Narrative [facility] - 08/01/2024 3:45 PM EST This assay is a 4th generation assay allowing for earlier detection of HIV infection by detecting the presence of the HIV-1 p24 antigen as well as the traditional antibodies to HIV type 1 (including group O) and type 2. ??Use of a 4th generation assay is the current CDC recommendation for HIV screening. us Sandy Kiran MD LAB BLOOD ORDERABLES Final Result Performing Organization Address City/[facility]/ZIP Co de Phone Number [facility] [address] [place] [address], [place] [phone] * Hepatitis C antibody (08/01/2024 1:35 PM EST) [facility] Hepatitis C Antibody Negative Negative LAB CHEMISTRY METHOD 08/01/2024 3:43 PM EST [facility] Blood Venous blood specimen / Unknown Venipuncture / Unknown 08/01/2024 1:35 PM EST 08/01/2024 1:35 PM EST Sandy Kiran MD LAB BLOOD ORDERABLES Final Result Performing Organization Address [facility] de Phone Number [facility] [address] [place] [address], [place] [phone] * Hepatitis B surface antigen with reflex to confirmation (08/01/2024 1:35 PM EST) [facility] Hepatitis B Surface Ag Negative Negative LAB CHEMISTRY METHOD 08/01/2024 3:16 PM EST [facility] Blood Venous blood specimen / Unknown Venipuncture / Unknown 08/01/2024 1:35 PM EST 08/01/2024 1:35 PM EST Narrative [facility] - 08/01/2024 3:16 PM EST Over the counter supplements containing high doses of biotin may interfere with this assay. ??If interference is suspected, patients shoud be retested after refraining from biotin supplements for 72 hours. us Sandy Kiran MD LAB BLOOD ORDERABLES Final Result Performing Organization Address [facility]/ZIP Co de Phone Number [facility] [address] [place] [address], [place] [phone] * Varicella zoster antibody IgG (08/01/2024 1:09 PM EST) [facility] Varicella IgG Positive Positive LAB CHEMISTRY METHOD 08/01/2024 3:15 PM EST [facility] Varicella Zoster IgG 6.94 >=1.00 S/CO LAB CHEMISTRY METHOD 08/01/2024 3:15 PM [facility] Blood Venous blood specimen / Unknown Venipuncture / Unknown 08/01/2024 1:09 PM EST 08/01/2024 1:09 PM EST Narrative [facility] - 08/01/2024 3:15 PM EST Interpretation >= 1.00 S/CO is considered to be consistent with Immunity Sandy Kiran MD LAB BLOOD ORDERABLES Final Result [facility] [address] [place] [address], [place] [phone] * Drug abuse screen expanded with reflex confirmation, urine (08/01/2024 12:58 PM EST) Amphetamine Screen, Ur Negative Negative LAB CHEMISTRY METHOD 08/01/2024 7:43 PM [facility] Comment:Certain OTC medicati ons containing ephedrine, phenylephrine, pseudoephedrine and phenylpropanolamine can cause false positive results. Barbiturate Screen, Ur Negative Negative LAB CHEMISTRY METHOD 08/01/2024 7:43 PM [facility] Benzodiazepine Screen, Ur Negative Negative LAB CHEMISTRY METHOD 08/01/2024 7:43 PM [facility] Cocaine Screen, Ur Negative Negative LAB CHEMISTRY METHOD 08/01/2024 7:43 PM [facility] Opiate Screen, Ur Negative Negative LAB CHEMISTRY METHOD 08/01/2024 7:43 PM [facility] Cannabinoid (THC) Screen, Ur Negative Negative LAB CHEMISTRY METHOD 08/01/2024 7:43 PM [facility] Comment:Specimens from patie nts taking pantoprazole sodium (Protonix) have been shown to produce false positive results. Fentanyl, Ur Negative Negative LAB CHEMISTRY METHOD 08/01/2024 7:43 PM [facility] Oxycodone Screen, Ur Negative Negative LAB CHEMISTRY METHOD 08/01/2024 7:43 PM EST [facility] Urine Urine specimen obtained by clean catch procedure / Unknown Non-blood Collection / Unknown 08/01/2024 12:58 PM EST 08/01/2024 12:58 PM EST Narrative [facility] - 08/01/2024 7:43 PM EST Assay [...] Kiran MD LAB URINE ORDERABLES Final Result [facility] [address] [place] [address], * Type and screen (08/01/2024 12:44 PM EST) ABO Group A 08/01/2024 3:33 PM EST [facility] Rh Type Positive 08/01/2024 3:33 PM EST [facility] Antibody Screen Negative 08/01/2024 3:33 PM EST [facility] Blood Venous blood specimen / Unknown Venipuncture / Unknown 08/01/2024 12:44 PM EST 08/01/2024 12:44 PM EST Sandy Kiran MD LAB BLOOD BANK TEST ORDERAB LES Final Result [facility] [address] [place] [address], documented in this encounter Visit Diagnoses Diagnosis care, subsequent in first trimester- Primary 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 02/15/2023 08/01/2024 metroNIDAZOLE (FLAGYL) 500 mg tabletIndications:trich omoniasis Take 1 tablet (500 mg total) by mouth 2 (two) times a day. Do not use mouth wash or consume alcohol until 48 hours after last dose Therapy completed 06/19/2024 08/01/2024 documented as of this encounter Orders Lab Orders Without Results Count Last Ordered D ate First Ordered Date THYROTROPIN RECEPTOR ANTIBODY 1 08/01/2024 documented in this encounter Care Teams Lap Maker Relationship Specialty Start Date End Date Gabrielle Moore MD [address] [place] [address] S[place] Villanueva [address] PCP - General Pediatrics 05/09/17 documented as of this encounter
--- OUTSIDE RECORDS SUMMARY | 2024-08-02 18:58 | XMS_ITS | Encounter Summary ---
Author Organization [facility] Address [address] [place] [address] Care Team Providers Care Attendant [facility] Name Role Phone Gabrielle Moore MD Primary Care Provider Reason for Referral * Imaging (Routine) - Pending Review Specialty Diagnoses / Procedures Referred By Contac t Referred To Contact Radiology Diagnoses Irregular menstrual cycle Procedures US OB Less 14 Wks Single or First Gestation Sandy Kiran MD [address] [place] [address] Phone: tel: fax: [address] Phone: tel: Referral ID Status Reason Start Date Expiration Date V isits Requested Visits Authorized [id number] Pending Review 06/20/2024 06/20/2025 1 1 Reason for Visit * Imaging (Routine) - Pending Review Specialty Diagnoses / Procedures Referred By Contac t Referred To Contact Radiology Diagnoses Irregular menstrual cycle Procedures US OB Less 14 Wks Single or First Gestation Sandy Kiran MD [address] [place] [address] Phone: tel: fax: [address] Phone: tel: Referral ID Status Reason Start Date Expiration Date V isits Requested Visits Authorized [id number] Pending Review 06/20/2024 06/20/2025 1 1 Encounter Details Date Type Department Care Team (Latest Contact Info) Description 07/10/2024 8:30 AM EST - 07/10/2024 11:59 PM EST Hospital Encounter Radiology Department - [address] [address] Irregular menstrual cycle Discharge Disposition: Home or [...] encounter Medications at Time of Discharge nitrofurantoin, macrocrystal-mon ohydrate, (MACROBID) 100 mg capsuleIndicatio ns:bacterial urinary tract infection Take 1 capsule (100 mg total) by mouth 2 (two) times a day. PNV no.95/ferrous fum/folic ac ( ORAL) Take 1 Tablet by mouth daily. 01/22/2022 PNV,calcium 48-uvqc-nqsxc acid (M- Plus) 27 mg iron- 1 mg tablet Take 1 tablet by mouth 1 (one) time each day. 90 tablet 3 06/19/2024 medroxyPROGESTER one 150 mg/mL injection Inject 1 mL into the muscle Every 3 Months. 02/15/2023 08/01/2024 metroNIDAZOLE (FLAGYL) 500 mg tabletIndication s:trichomoniasis Take 1 tablet (500 mg total) by mouth 2 (two) times a day. Do not use mouth wash or consume alcohol until 48 hours after last dose 06/19/2024 08/01/2024 sertraline (ZOLOFT) 25 mg tablet 1 tab daily for 2 weeks, then increase to 2 tabs daily 02/15/2023 08/01/2024 documented as of this encounter Discharge Disposition Disposition Code Departure Means Destination Home or Self Care documented in this encounter Plan of Treatment Upcoming Encounters Date Type Department Care Team (Late st Contact Info) Description 08/13/2024 11:00 AM EDT Initial Obstetrics and Gynecology - [address] [phone] Sandy Kiran MD [address] [place], [place] documented as of this encounter Procedures [...] weeks, 2 days (ANJELICA 02/24/2025). ?? POS [id number] -------- FINAL REPORT -------- Dictated By: Julienne Evangelista Dictated Date: 07/10/2024 10:20 ET Assigned Physician: Julienne Evangelista Reviewed and Electronically Signed By: Julienne Evangelista Signed Date: 07/10/2024 10:24 ET Workstation ID: [id number] Transcribed By: Self Edit Transcribed Date: 07/10/2024 10:20 ET Narrative 07/10/2024 10:24 AM EST PELVIC OBSTETRICAL ULTRASOUND HISTORY: patient with irregular menstrual periods. ??Assess dating. COMPARISON: ??None recent FINDINGS: Transabdominal pelvic ultrasound was performed. ?? Uterus: Intrauterine gestational sac, yolk sac, and pole. ??[place]-rump length 1.1 cm which corresponds with an [...] Uterus: Intrauterine gestational sac, yolk sac, and pole.[place]-rump length 1.1 cm which corresponds with an [...] of 7weeks, 2 days (ANJELICA 02/24/2025). POS [id number] -------- FINAL REPORT -------- Dictated By: Julienne Evangelista Dictated Date: 07/10/2024 10:20 ET Assigned Physician: Julienne Evangelista Reviewed and Electronically Signed By: Julienne Evangelista Signed Date: 07/10/2024 10:24 ET Workstation ID: [id number] Transcribed By: Self Edit Transcribed Date: 07/10/2024 10:20 ET us Sandy Kiran MD IMG OB US PROCEDURES Final Result documented in this encounter Visit Diagnoses Diagnosis Irregular menstrual cycle documented in this encounter Care Teams Attendant [facility] Relationship Specialty Start Date End Date Gabrielle Moore MD [address] [place] [address] [place] Villanueva [address] PCP - General Pediatrics 05/09/17 documented as of this encounter
--- OUTSIDE RECORDS SUMMARY | 2024-08-02 18:58 | XMS_ITS | Encounter Summary ---
Author Organization [facility] Address [address] [place] [address] Care Team Providers Care Histology Supervisor Name Role Phone Gabrielle Moore MD Primary Care Provider [phone] Reason for Referral * Consultation (Urgent) - Pending Review Specialty Diagnoses / Procedures Referred By Katelynn t Referred To Contact Endocrinology Diagnoses Hyperthyroidism Radha Hoffman CNM [address] [place] [address] Phone: tel: fax: Referral ID Status Reason Start Date Expiration Date Visits Requested Visits Authorized [id number] Pending Review Specialty Services Required 08/02/2024 08/02/2025 1 1 Encounter Details Date Type Department Care Team (Late st Contact Info) Description 08/02/2024 Telephone Obstetrics and Gynecology - [address] [phone] Kelly Eugene RN Social History Tobacco Use Types Packs/Day [...] Notes * Kelly Eugene RN - 08/02/2024 4:43 PM EST I spoke with Janina SHEFFIELD from [facility] she called stating pt is there with same lab results. Will discharge home. Cannot treat until > 12 weeks GA. Messaged provider for a referral to Endocrinology to have her f/u with them. IP appt with Dr Kiran on 08/13/24. documented in this encounter Plan of Treatment Upcoming Encounters Date Type Department Care Team (Late st Contact Info) Description 08/13/2024 11:00 AM EDT Initial Obstetrics and Gynecology - [address] [address] Sandy Kiran MD [address] [place] [address] Scheduled Referrals Name Type Priority Associated Diagnoses Order Schedule Ambulatory referral to Endocrinology Outpatient Referral Routine Hyperthyroidism 1 Occurrences starting 08/02/2024 until 08/02/2025 documented as of this encounter Visit Diagnoses Diagnosis care, subsequent in first trimester- Primary Hyperthyroidism Thyrotoxicosis without mention of goiter or other cause, without mention of thyrotoxic crisis or storm documented in this encounter Care Teams Histology Supervisor Relationship Specialty Start Date End Date Gabrielle Moore MD [address] [place] [address] PCP - General Pediatrics 05/09/17 documented as of this encounter
--- OUTSIDE RECORDS SUMMARY | 2024-08-02 18:58 | XMS_ITS | Encounter Summary ---
Author Organization [facility] Address [address] [place] [address] Phone Care Team Providers Care Franchise Business Consultant Name Role Phone Rosmery Moore MD Primary Care Provider [phone] Reason for Visit * Reason Comments Med Refill Encounter Details Date Type Department Care Team (Late st Contact Info) Description 11/16/2019 Refill [facility] [address] [place] [address] Rosmery Moore MD [address] [place] [address] Mild persistent asthma without complication Social History [...] which pharmacy flovent will be sent to. [address] documented in this encounter Plan of Treatment Not on file documented as of this encounter Visit Diagnoses Diagnosis Mild persistent asthma without complication documented in this encounter Care Teams Franchise Business Consultant Relationship Specialty Start Date End Date Rosmery Moore MD [address] [place] [address] [place] Villanueva [address] PCP - General 01/07/17 07/28/22 documented as of this encounter
--- OUTSIDE RECORDS SUMMARY | 2024-08-02 18:58 | XMS_ITS | Encounter Summary ---
Author Organization [facility] Address [address] [place] [address] Care Team Providers Care Lining Inserter Name Role Phone Gabrielle Moore MD Primary Care Provider [phone] Reason for Visit * Reason Onset Date Comments Lab Results 08/01/2024 Encounter Details Date Type Department Care Team ([facility] st Contact Info) Description 08/01/2024 Telephone Obstetrics and Gynecology - [address] [phone] Sandy Kiran MD [address] [place], [place] Lab Results Social History Tobacco Use Types Packs/Day Years [...] as of this encounter Progress Notes * Dorota Cavanaugh - 08/01/2024 3:13 PM EST Pt calling requesting fani to discuss her lab results from 07/31/24. Pt was advised results have not been reviewed by provider, once reviewed and signed off, office will call her. Pls advise documented in this encounter Plan of Treatment Upcoming Encounters Date Type Department Care Team (Late st Contact Info) Description 08/13/2024 11:00 AM EDT Initial Obstetrics and Gynecology - [address] [phone] Sandy Kiran MD [address] [place] [address] documented as of this encounter Visit Diagnoses Not on filedocumented in this encounter Care Teams Lining Inserter Relationship Specialty Start Date End Date Gabrielle Moore MD [address] [place] [address] [place] [address] PCP - General Pediatrics 05/09/17 documented as of this encounter
--- OUTSIDE RECORDS SUMMARY | 2024-08-02 18:58 | XMS_ITS | Encounter Summary ---
Author Organization [facility] Address [address] [place] [address] Phone Care Team Providers Care Commodities Requirements Analyst Name Role Phone Rosmery Moore MD Primary Care Provider [phone] Encounter Details Date Type Department Care Team (Late st Contact Info) Description 06/28/2016 Documentation [facility] [address] [place], [place] [id number] Family Medicine, Physician [address] [place] [address] Social History Tobacco Use Types Packs/Day Years [...] on filedocumented in this encounter Care Teams Commodities Requirements Analyst Relationship Specialty Start Date End Date Rosmery Moore MD [address] [place] [address] S[place] Villanueva [address] PCP - General 01/07/17 07/28/22 documented as of this encounter
[2024-08-02 19:21] VITALS: BP 107/54; PULSE 72; RESP 16; TEMP 36.9; O2SAT 98
[2024-08-04 08:59] LABS: Triiodothyronine T3 Free 3.1 pg/mL (2.3-4.2)
== END 2024-08-02 19:46 | disposition home or self-care (01) ==
PROVIDERS: Physician Assistant; Physician Assistant Medical; Emergency Provider Emergency Medicine
DX: O26.91 Pregnancy related conditions, unspecified, first trimester (principal); Z3A.11 11 weeks gestation of pregnancy; R07.89 Other chest pain; R79.89 Other specified abnormal findings of blood chemistry; R10.2 Pelvic and perineal pain; Z03.818 Encounter for observation for suspected exposure to other biological agents ruled out; Z79.899 Other long term (current) drug therapy
CPT/HCPCS: 0241U; 36415; 76801; 76815; 80048; 80076; 81001; 83735; 84439; 84443; 84481; 84484; 84702; 85025; 86900; 86901; 93005; 99284

== ENCOUNTER → 2024-08-02 14:20 | Outpatient (BNV) | payer OTHER, SELFPAY | PROVIDERS: Visit Provider Radiology Diagnostic Radiology | DX: O26.899 Other specified pregnancy related conditions, unspecified trimester (principal) | CPT/HCPCS: 76801 ==

== ENCOUNTER → 2024-08-02 15:26 | Outpatient (BNV) | payer OTHER, SELFPAY | PROVIDERS: Emergency Provider Emergency Medicine; Visit Provider Obstetrics & Gynecology | DX: R79.89 Other specified abnormal findings of blood chemistry (principal) | CPT/HCPCS: 99283 ==

== ENCOUNTER → 2024-08-02 16:12 | Outpatient (BNV) | payer OTHER, SELFPAY | PROVIDERS: Emergency Provider Emergency Medicine; Visit Provider Internal Medicine Cardiovascular Disease | DX: R07.9 Chest pain, unspecified (principal) | CPT/HCPCS: 93010 ==

== ENCOUNTER 2024-08-25 03:58 | Emergency (ER) | payer OTHER, SELFPAY ==
--- NOTE | ~2024-08-25 | US_ITS ---
CLINICAL HISTORY: 14 weeks with bleed US OB 1st trimester transabdominal Comparison: 08/02/2024 Findings: Single intrauterine . CRL: 9.3 cm. EGA: 15 weeks and 2 days. ANJELICA: 02/14/2025. Previously established gestational age: Fourteen weeks and 3 days Normal yolk sac. Cardiac activity: 146 bpm. No subchorionic bleed. IMPRESSION: Single intrauterine estimated 15 weeks and 2 days gestational age by today's ultrasound criteria. No evidence of subchorionic hemorrhage. This document has been electronically signed by: Silvano Gregory MD on 08/25/2024 09:52:28
[2024-08-25 04:03] VITALS: BP 115/50; PULSE 96; RESP 17; TEMP 36.2; O2SAT 98; BMI 24.6
[2024-08-25 04:43] LABS: Basophils Percent Auto 0.3 % (0-2); Eosinophils Absolute Auto 0.1 X10*3/uL (0.0-0.4); Eosinophils Percent Auto 0.8 % (0-4); Hematocrit 32.9 % (37.0-47.0); Imm Gran Abs Auto 0.03 X10*3/uL (0.00-0.03); Imm Gran Pct Auto 0.4 % (0.0-0.4); Lymphocytes Absolute Auto 2.9 X10*3/uL (1.2-4.9); Lymphocytes Percent Auto 38.2 % (20-40); MANUAL DIFF FLAG NO; Mean Corpuscular HGB Conc 36.5 g/dl (31.0-35.0); Mean Corpuscular Hemoglobin 31.6 pg (27.0-33.0); Mean Corpuscular Volume 86.6 fL (80.0-98.0); Mean Platelet Volume 10.2 fL (9.4-12.3); Monocytes Absolute Auto 0.4 X10*3/uL (0.1-1.2); Monocytes Percent Auto 5.9 % (2-11); Neutrophils Absolute Auto 4.1 x10*3/uL (2.0-8.3); Neutrophils Percent Auto 54.4 % (45-73); Platelet Count 158 X10*3/uL (160-400); Red Cell Distribution Width 12.2 % (11.0-16.0); White Blood Count 7.5 X10*3/uL (4.8-10.8)
[2024-08-25 05:01] LABS: Alanine Aminotransferase 7 U/L (0-31); Albumin Level 3.6 g/dL (3.5-5.0); Anion Gap 12 (12-20); Aspartate Amino Transferase 17 U/L (5-31); Bilirubin Total 0.2 mg/dL (0.0-1.0); Blood Urea Nitrogen 7 mg/dL (9-16); Calcium 8.3 mg/dL (8.4-10.2); Carbon Dioxide 19 mmol/L (22-29); Chloride 111 mmol/L (96-108); Creatinine Clr Calc Pharmacy 119.4; Estimated Glomerular Filt Rate > 60; Glucose Random 98 mg/dL (60-115); Lipase 14 U/L (8-78); Potassium 3.6 mmol/L (3.3-5.1); Sodium 138 mmol/L (135-145); Total Protein 6.1 g/dL (6.5-8.0)
[2024-08-25 05:11] LABS: Alkaline Phosphatase 46 U/L (39-117)
[2024-08-25 05:31] LABS: HCG Quantitative 48332 mIU/mL
--- NOTE | 2024-08-25 07:51 | ED_ITS ---
HPI - Abdominal Pain General Chief Complaint: Abdominal Pain Stated Complaint: 14kks preg/back pain/spotting Time Seen by Provider: 08/25/24 07:06 Related Data Home Medications ?Medication ?Instructions ?Recorded ?Confirmed vitamin 1 tab PO DAILY 11/05/21 11/05/21 no.76-iron,carbonyl 29 mg iron-folic acid 1 mg tablet (Thrivite Rx) Previous Rx's ?Medication ?Instructions ?Recorded pyridoxine (vitamin B6) 25 mg 25 mg PO TID PRN nausea #30 tabs 11/05/21 tablet cefuroxime axetil 250 mg tablet 250 mg PO BID #10 tabs 05/17/24 doxycycline hyclate 100 mg capsule 100 mg PO BID 14 days #27 caps 05/17/24 metronidazole 500 mg tablet 500 mg PO BID 14 days #27 tabs 05/17/24 ondansetron 4 mg disintegrating 4 mg PO Q8H PRN nausea and 05/17/24 tablet vomiting #10 tabs doxylamine 10 mg-pyridoxine (vit 1 tab PO BID #30 tabs 06/17/24 B6) 10 mg tablet,delayed release nitrofurantoin 100 mg PO Q12H 7 days #14 caps 06/17/24 monohydrate/macrocrystals 100 mg capsule (Macrobid) metronidazole 500 mg tablet 500 mg PO BID #14 tabs 06/19/24 doxylamine succinate 25 mg tablet 25 mg PO TID PRN Nausea vomiting 07/19/24 #30 tabs nitrofurantoin 100 mg PO Q12H 7 days #14 caps 07/19/24 monohydrate/macrocrystals 100 mg capsule (Macrobid) pyridoxine (vitamin B6) 25 mg 25 mg PO TID PRN nausea and 07/19/24 tablet vomiting #30 tabs Allergies Allergy/AdvReac Type Severity Reaction Status Date / Time broccoli [BROCCOLI] Allergy Severe ANAPHYLAXIS Verified 08/25/24 04:20 penicillin V Allergy Mild Hives Verified 08/25/24 04:20 Penicillins [PENICILLINS] Allergy Mild RASH Verified 08/25/24 04:20 amoxicillin Allergy Unknown Unknown Verified 08/25/24 04:20 PMFSH Past Medical History Medical History PTSD (post-traumatic stress disorder) Prolonged QT interval Depression ADHD Surgical History No pertinent past surgical history Social History Social History Alcohol intake: never Patient Tobacco Use Status: Current everyday Tobacco user Smoked in Last 30 Days: No Use of substances other than those prescribed or required for medical reasons: No Substance Use Type: Marijuana Advance Directives: No Advance Directives Information Provided: Yes Do you have a plan to hurt others: No Plan Patient : Yes Physical Exam ED Vital Signs: Vital Signs - 24 hr 08/25/24 04:03 Temperature 97.1 F Pulse Rate 96 Respiratory Rate 17 Blood Pressure 115/50 L Pulse Oximetry 98 Oxygen Delivery Method Room Air BMI result Body Mass Index 24.6 Medical Decision Making Medical Decision Making MDM Narrative: Patient with minor vaginal spotting IUP with no subchorionic bleeding in ultrasound blood group is A positive patient is comfortable now will discharge patient home Lab Data MDM Lab Attestation statement: I reviewed the patient's lab results. 08/25/24 04:39 08/25/24 04:39 Labs: Lab Results 08/25/24 Range/Units 04:39 WBC 7.5 (4.8-10.8) X10*3/uL RBC 3.80 L (4.20-5.50) X10*6/uL Hgb 12.0 (12.0-16.0) g/dl Hct 32.9 L (37.0-47.0) % MCV 86.6 (80.0-98.0) fL MCH 31.6 (27.0-33.0) pg MCHC 36.5 H (31.0-35.0) g/dl RDW 12.2 (11.0-16.0) % Plt Count 158 L (160-400) X10*3/uL MPV 10.2 (9.4-12.3) fL Immature Gran % (Auto) 0.4 (0.0-0.4) % Neut % (Auto) 54.4 (45-73) % Lymph % (Auto) 38.2 (20-40) % Howell % (Auto) 5.9 (2-11) % Eos % (Auto) 0.8 (0-4) % Baso % (Auto) 0.3 (0-2) % Lymph # (Auto) 2.9 (1.2-4.9) X10*3/uL Howell # (Auto) 0.4 (0.1-1.2) X10*3/uL Eos # (Auto) 0.1 (0.0-0.4) X10*3/uL Baso # (Auto) 0.0 (0.0-0.2) X10*3/uL Abs Immat Gran (auto) 0.03 (0.00-0.03) X10*3/uL Absolute Neuts (auto) 4.1 (2.0-8.3) x10*3/uL Absolute Nucleated RBC 0.000 (0.0-0.012) X10*3/uL Nucleated RBC % (auto) 0.0 (0.0-0.2) /100WBC Sodium 138 (135-145) mmol/L Potassium 3.6 (3.3-5.1) mmol/L Chloride 111 H (96-108) mmol/L Carbon Dioxide 19 L (22-29) mmol/L Anion Gap 12 (12-20) BUN 7 L (9-16) mg/dL Creatinine 0.59 (0.5-1.4) mg/dL Estim Creat Clear Calc 119.4 Estimated GFR > 60 Random Glucose 98 (60-115) mg/dL Calcium 8.3 L (8.4-10.2) mg/dL Total Bilirubin 0.2 (0.0-1.0) mg/dL AST 17 (5-31) U/L ALT 7 (0-31) U/L Alkaline Phosphatase 46 (39-117) U/L Total Protein 6.1 L (6.5-8.0) g/dL Albumin 3.6 (3.5-5.0) g/dL Lipase 14 (8-78) U/L Beta HCG, Quant 53302 mIU/mL Independent Interpretation I performed an independent interpretation of an: Ultrasound Radiology Impression Discussion of test interpretation with radiology: I have reviewed the radiologist's reading. Radiologist Impression: Normal IUP 15 weeks 2 days no subchorionic bleed Discharge Plan Discharge Clinical Impression: Vaginal bleeding in patient at less than 20 weeks gestation Patient Disposition: Home, Self-Care Instructions: Threatened Miscarriage (ED) Additional Instructions: At this time your ultrasound is showing normal fetus of 15 weeks 2 days Report to the ER if increase in vaginal bleeding or pain Follow up with your ObG Prescriptions: No Action Thrivite Rx 29 mg iron- 1 mg tablet 1 tab PO DAILY pyridoxine (vitamin B6) 25 mg tablet 25 mg PO TID PRN (Reason: nausea) Qty: 30 0RF pyridoxine (vitamin B6) 25 mg tablet 25 mg PO TID PRN (Reason: nausea and vomiting) Qty: 30 0RF Rx Instructions: Take together with doxylamine doxylamine succinate 25 mg tablet 25 mg PO TID PRN (Reason: Nausea vomiting) Qty: 30 0RF nitrofurantoin monohyd/m-cryst [Macrobid] 100 mg capsule 100 mg PO Q12H 7 Days Qty: 14 0RF Rx Instructions: must administer with a meal/food doxycycline hyclate 100 mg capsule 100 mg PO BID 14 Days Qty: 27 0RF metronidazole 500 mg tablet 500 mg PO BID 14 Days Qty: 27 0RF cefuroxime axetil 250 mg tablet 250 mg PO BID Qty: 10 0RF ondansetron 4 mg tablet,disintegrating 4 mg PO Q8H PRN (Reason: nausea and vomiting) Qty: 10 0RF nitrofurantoin monohyd/m-cryst [Macrobid] 100 mg capsule 100 mg PO Q12H 7 Days Qty: 14 0RF Rx Instructions: must administer with a meal/food doxylamine-pyridoxine (vit B6) 10-10 mg tablet,delayed release (DR/EC) 1 tab PO BID Qty: 30 0RF metronidazole 500 mg tablet 500 mg PO BID Qty: 14 0RF Print Language: Iranian
[2024-08-25 11:02] VITALS: BP 103/78; PULSE 78; RESP 16; TEMP 36.6; O2SAT 99
== END 2024-08-25 11:14 | disposition home or self-care (01) ==
PROVIDERS: Emergency Provider Internal Medicine; PCP Specialist
DX: O20.9 Hemorrhage in early pregnancy, unspecified (principal); Z3A.14 14 weeks gestation of pregnancy; Z79.899 Other long term (current) drug therapy
CPT/HCPCS: 36415; 76801; 80053; 83690; 84702; 85025; 99284

== ENCOUNTER → 2024-08-25 07:52 | Outpatient (BNV) | payer OTHER, SELFPAY | PROVIDERS: Emergency Provider Internal Medicine; PCP Specialist; Visit Provider Radiology Diagnostic Radiology | DX: O26.851 Spotting complicating pregnancy, first trimester (principal) | CPT/HCPCS: 76801 ==